=== PATIENT | male | born 1945 | race Caucasian/White ===

== ENCOUNTER 2018-07-29 12:41 | Inpatient (IN) | payer MEDICARE ==
[2018-07-29 12:41] VITALS: BMI 25.1
[2018-07-29 13:20] LABS: BASO # 0.1 K/uL (0.0-0.2); BASO % 1.1 % (0.0-2.0); EOS # 0.1 K/uL (0.0-0.7); EOS % 1.2 % (0.0-4.0); HEMOGLOBIN 15.7 g/dL (12.0-18.0); LYMPH # 1.7 K/uL (1.0-4.3); LYMPH % 27.5 % (20.0-40.0); MEAN CELL VOLUME 91.9 fL (80.0-94.0); MEAN CORPUSCULAR HEMOGLOBIN 31.1 pg (27.0-31.0); MEAN CORPUSCULAR HGB CONC 33.9 g/dL (33.0-37.0); MONO # 0.5 K/uL (0.0-0.8); MONO % 8.5 % (0.0-10.0); NEUT # 3.8 K/uL (1.8-7.0); NEUT % 61.7 % (50.0-75.0); RBC 5.05 Mil/uL (4.40-5.90); RED CELL DISTRIBUTION WIDTH 12.8 % (11.5-14.5); WHITE BLOOD COUNT 6.2 K/uL (4.8-10.8)
[2018-07-29] MEDS ORDERED: Metoprolol 1 mg/ml Inj IVP ONE ×2 (13:27→13:52)
[2018-07-29] MEDS ORDERED: Aspirin 325 mg EC Tablets PO STA (13:28)
[2018-07-29 13:29] LABS: INR 1.1; PROTHROMBIN TIME 11.7 SECONDS (9.7-12.2)
[2018-07-29 13:31] LABS: ALB/GLOB RATIO 1.4 (1.0-2.1); ALBUMIN 4.6 g/dL (3.5-5.0); ALT/SGPT 27 U/L (21-72); AST/SGOT 44 U/L (17-59); BLOOD UREA NITROGEN 17 mg/dL (9-20); CALCIUM 9.8 mg/dl (8.6-10.4); GFR NON-AFRICAN AMERICAN > 60
[2018-07-29] MEDS ORDERED: Metoprolol 1 mg/ml Inj ONE ×2 (13:32→14:22)
--- NOTE | 2018-07-29 13:33 | C.PDOC ---
History Of Present Illness Patient is a 73yo [place]ien M with history of HTN, HLD, afib was sent in by outpatient credit verification clerk, Dr. Gamboa covering for his regular credit verification clerk, Dr. rIwin. His regularly checks his pulse after their daily walk this morning and found him to be tachycardic. He switched from Losartan to Benicar (olmesartan) about a month ago due to the recall. He was trialed on Xarelto, but switched to Eliquis 5 daily due to cost. He takes half doses of his Sotalol (80 -> 40) and has runs of tachycardia which are known to Dr. Irwin. he has no other complaints. Denies chest pain, shortness of breath, swelling, headache, numbness, tingling, fever, chills. Time Seen by Provider: 07/29/18 13:06 Chief Complaint (Nursing): Palpitations History Per: Patient, Family History/Exam Limitations: no limitations Onset/Duration Of Symptoms: Hrs Current Symptoms Are (Timing): Still Present Severity: Mild Pain Scale Rating Of: 0 Past Medical History Reviewed: Historical Data, Nursing Documentation, Vital Signs Vital Signs: Last Vital Signs Temp 98.0 F 07/29/18 12:50 Pulse 139 H 07/29/18 12:50 Resp 18 07/29/18 12:50 BP 187/136 H 07/29/18 12:50 Pulse Ox 100 07/29/18 12:50 - Medical History PMH: Anxiety, Arthritis, Atrial Fibrillation, Cardia Arrhythmia, HTN, Hypercholesterolemia Denies: Chronic Kidney Disease Surgical History: Appendectomy, Cholecystectomy - [facility] Procedures ENDO RECTUM POLYPECTOMY (01/10/14) ENDOSC POLYPECTOMY OF LG INTEST (01/10/14) ESOPHAGOGASTRODUODENOSCOPY [EGD] W/CLOSED BIOPSY (01/10/14) INTRAOPER CHOLANGIOGRAM (02/28/14) LAPAROSCOPIC CHOLECYSTECTOMY (02/28/14) VACCINATION NEC (01/10/14) Family History: States: Unknown Family Hx - Social History Hx Tobacco Use: No Hx Alcohol Use: No Hx Substance Use: No - Immunization History Hx Tetanus Toxoid Vaccination: No Hx Influenza Vaccination: Yes Hx Pneumococcal Vaccination: Yes Review Of Systems Constitutional: Negative for: Fever, Chills, Sweats, Weakness, Malaise Cardiovascular: Positive for: Palpitations. Negative for: Chest Pain, Edema, Light Headedness Respiratory: Negative for: Cough, Shortness of Breath, Sputum, Wheezing Gastrointestinal: Negative for: Nausea, Vomiting, Abdominal Pain, Diarrhea, Constipation Musculoskeletal: Negative for: Arm Pain, Back Pain Neurological: Negative for: Weakness, Numbness, Confusion, Altered Mental Status, Headache, Dizziness Physical Exam - Physical Exam Appears: Well, No Acute Distress Skin: Normal Color (no bruises, bleeds), Warm, Dry Head: Atraumatic, Normacephalic Eye(s): bilateral: Normal Inspection, PERRL, EOMI (normal accommodation) Throat: Normal, No Erythema, No Exudate Cardiovascular: Rhythm Irregular, No Murmur Respiratory: Normal Breath Sounds, No Decreased Breath Sounds, No Accessory Muscle Use, No Rales, No Rhonchi, No Wheezing Gastrointestinal/Abdominal: Bowel Sounds, Soft, No Tenderness, No Distention, No Guarding Back: Normal Inspection, No CVA Tenderness Extremity: Normal ROM, No Pedal Edema, Capillary Refill (<2 sec), No Swelling Pulses: Left Radial: Normal, Right Radial: Normal, Left Dorsalis Pedis: Normal, Right Dorsalis Pedis: Normal Neurological/Psych: Oriented x3, Normal Speech, Normal Motor, Normal Sensation Gait: Steady ED Course And Treatment - Laboratory Results Result Diagrams: 07/29/18 13:16 07/29/18 13:16 ECG: Viewed By Me ECG Rhythm: Atrial Flutter ECG Interpretation: Abnormal Interpretation Of ECG: Aflutter with 2:1 AV conduction Rate From EC O2 Sat by Pulse Oximetry: 100 Medical Decision Making Medical Decision Making: patient is under-dosed on his beta blockers - EKG - labs - UA - PO ASA 325 - IVP Lopressor 5 - IVP Lopressor 5 after re-eval [address] Gamboa - ICU eval - heparin drip - Cardizem drip @ 5 - admit under Dr. Soto - hold Sotalol, Bystolic, Eliquis - IVP Lasix 20 - EP Dobesh [address] Chandra will accept to ICU Disposition Discussed With : Rick Gamboa Comment: IVP Lasix 20. started on heparin and cardizem drips. ICU called for eval Doctor Will See Patient In The: Hospital - Disposition Disposition: HOSPITALIZED Disposition Time: 14:34 Condition: GOOD Forms: [facility] ([place]) - Clinical Impression Clinical Impression: Palpitations, Atrial arrhythmia - PA / RN PRIOR AUTHORIZATION / Resident Statement MD/DO has reviewed & agrees with the documentation as recorded. MD/DO has examined the patient and agrees with the treatment plan.
--- NOTE | 2018-07-29 13:35 | RAD ---
Date of service: 07/29/2018 PROCEDURE: CHEST RADIOGRAPH, 1 VIEW HISTORY: SOB COMPARISON: 05/13/2015. FINDINGS: LUNGS: The lungs are well inflated and clear. PLEURA: No pneumothorax or pleural effusion. CARDIOVASCULAR: There is mild cardiomegaly. There are aortic atherosclerotic calcifications present. OSSEOUS STRUCTURES: Within normal limits for the patient's age. VISUALIZED UPPER ABDOMEN: Normal. OTHER FINDINGS: None. IMPRESSION: No active pulmonary disease.
[2018-07-29 13:49] LABS: B-TYPE NATRIURETIC PEPTIDE 2350 pg/mL (0-900)
[2018-07-29] MEDS ORDERED: Heparin25000 units/250ml 1/2NS 25,000 UNITS/250 ML BAG IV ONE ×2 (14:23→15:13)
[2018-07-29 14:56] LABS: SQUAMOUS EPITHIAL 1 /hpf (0-5); URINE BILIRUBIN NEGATIVE (NEGATIVE); URINE BLOOD 1+ (NEGATIVE); URINE CLARITY Clear (Clear); URINE COLOR Yellow (YELLOW); URINE GLUCOSE (UA) NORMAL (Normal); URINE LEUKOCYTE ESTERASE NEG Leu/uL (Negative); URINE PROTEIN NEGATIVE (NEGATIVE); URINE UROBILINOGEN NORMAL mg/dL (0.2-1.0)
--- NOTE | 2018-07-29 15:14 | CP.PCM.CON ---
<MeggregKirill - Last Filed: 07/29/18 15:08> History of Present Illness - History of Present Illness History of Present Illness: PGY-1 Critical Care Consult Note for Dr. Chandra Patient is a 73 year old male with PMHx atrial fibrillation who presents in rapid Afib noticed when patient's checked his pulse manually at home. Patient has known history of A fib with RVR and so is aware to monitor his heart rate. Patient was exercising this morning which he often does and asked his to help check is radial pulse and she noticed it to be "fluttering" and rapid. Of note, patient is the brother of on-staff biologics specialist, Dr. Irwin. Patient called Dr. Irwin who is currently in the [facility] and Dr. Irwin had patient go into his office to have EKG done and requested EKG be evaluated by Dr. Gamboa, and Dr. Gamboa requested patient go to ED for ICU evaluation. Patient recently changed medications from Xarelto to Eliquis. Patient denies palpitations, chest pain, dizziness, dyspnea, headache, vision changes, focal weakness, numbness, tingling. Review of Systems - Constitutional Constitutional: absent: Chills, Fever - EENT Eyes: absent: Blurred Vision, Change in Vision Nose/Mouth/Throat: absent: Nasal Congestion, Nasal Discharge - Cardiovascular Cardiovascular: absent: Chest Pain, Dyspnea, Edema, Lightheadedness, Palpitations - Respiratory Respiratory: absent: Dyspnea, Wheezing - Gastrointestinal Gastrointestinal: absent: Abdominal Pain, Diarrhea, Nausea, Vomiting - Musculoskeletal Musculoskeletal: absent: Back Pain, Numbness, Tingling - Neurological Neurological: absent: Dizziness, Focal Weakness, Loss of Vision, Syncope, Weakness - Psychiatric Psychiatric: absent: Anxiety, Depression Past Patient History - Infectious Disease Hx of Infectious Diseases: None - Past Medical History & Family History Past Medical History?: Yes - Past Social History Smoking Status: Former Smoker - CARDIAC Hx Atrial Fibrillation: Yes Hx Cardia Arrhythmia: Yes Hx Hypercholesterolemia: Yes Hx Hypertension: Yes - PULMONARY Hx Respiratory Disorders: No - NEUROLOGICAL Hx Neurological Disorder: No - HEENT Hx HEENT Problems: No Other/Comment: seasonal allergies - RENAL Hx Chronic Kidney Disease: No - ENDOCRINE/METABOLIC Hx Endocrine Disorders: Yes Other/Comment: HX of recurrent hyponatremia - HEMATOLOGICAL/ONCOLOGICAL Hx Blood Disorders: No - INTEGUMENTARY Hx Dermatological Problems: No - MUSCULOSKELETAL/RHEUMATOLOGICAL Hx Arthritis: Yes - GASTROINTESTINAL Hx Gastrointestinal Disorders: Yes Hx Gastroesophageal Reflux: Yes Other/Comment: cholelithiasis - GENITOURINARY/GYNECOLOGICAL Hx Genitourinary Disorders: No - PSYCHIATRIC Hx Anxiety: Yes Hx Substance Use: No - SURGICAL HISTORY Hx Appendectomy: Yes Hx Cholecystectomy: Yes - ANESTHESIA Hx Anesthesia: Yes Hx Anesthesia Reactions: No Hx Malignant Hyperthermia: No Meds Allergies/Adverse Reactions: Allergies Allergy/AdvReac Type Severity Reaction Status Date / Time amlodipine Allergy Verified 07/29/18 12:52 - Medications Medications: Current Medications Diltiazem HCl 125 mg/ Sodium (Chloride) 125 mls @ 5 mls/hr IV .Q24H KASIE; Protocol Physical Exam - Constitutional Appears: Non-toxic, No Acute Distress - Head Exam Head Exam: ATRAUMATIC, NORMOCEPHALIC - Eye Exam Eye Exam: EOMI - ENT Exam ENT Exam: Mucous Membranes Moist - Respiratory Exam Respiratory Exam: Clear to Auscultation Bilateral, NORMAL BREATHING PATTERN. absent: Rhonchi, Wheezes - Cardiovascular Exam Cardiovascular Exam: REGULAR RHYTHM, +S1, +S2 - GI/Abdominal Exam GI & Abdominal Exam: Normal Bowel Sounds, Soft. absent: Tenderness - Extremities Exam Extremities exam: Positive for: normal inspection. Negative for: pedal edema, tenderness - Neurological Exam Neurological exam: Alert, CN II-XII Intact, Oriented x3 - Psychiatric Exam Psychiatric exam: Normal Affect, Normal Mood - Skin Skin Exam: Dry, Intact Results - Vital Signs Recent Vital Signs: Last Vital Signs Temp 98.0 F 07/29/18 12:50 Pulse 70 07/29/18 14:51 Resp 14 07/29/18 14:51 BP 166/106 H 07/29/18 14:56 Pulse Ox 100 07/29/18 14:52 - Labs Result Diagrams: 07/29/18 13:16 07/29/18 13:16 Labs: Laboratory Results - last 24 hr 07/29/18 07/29/18 07/29/18 13:16 13:16 13:16 WBC 6.2 RBC 5.05 Hgb 15.7 D Hct 46.4 MCV 91.9 MCH 31.1 H MCHC 33.9 RDW 12.8 Plt Count 293 D MPV 7.0 L Neut % (Auto) 61.7 Lymph % (Auto) 27.5 Sullivan % (Auto) 8.5 Eos % (Auto) 1.2 Baso % (Auto) 1.1 Neut # (Auto) 3.8 Lymph # (Auto) 1.7 Sullivan # (Auto) 0.5 Eos # (Auto) 0.1 Baso # (Auto) 0.1 PT 11.7 INR 1.1 APTT 42.0 H Sodium 133 Potassium 5.1 Chloride 97 L Carbon Dioxide 27 Anion Gap 14 BUN 17 Creatinine 1.0 Est GFR ( Amer) > 60 Est GFR (Non-Af Amer) > 60 Random Glucose 119 H Calcium 9.8 Total Bilirubin 0.7 AST 44 ALT 27 Alkaline Phosphatase 92 Troponin I < 0.0120 NT-Pro-B Natriuret Pep 2350 H Total Protein 8.1 Albumin 4.6 Globulin 3.4 Albumin/Globulin Ratio 1.4 Urine Color Urine Clarity Urine pH Ur Specific [place] Urine Protein Urine Glucose (UA) Urine Ketones Urine Blood Urine Nitrate Urine Bilirubin Urine Urobilinogen Ur Leukocyte Esterase Urine WBC (Auto) Urine RBC (Auto) Ur Squamous Epith Cells 07/29/18 14:46 WBC RBC Hgb Hct MCV MCH MCHC RDW Plt Count MPV Neut % (Auto) Lymph % (Auto) Sullivan % (Auto) Eos % (Auto) Baso % (Auto) Neut # (Auto) Lymph # (Auto) Sullivan # (Auto) Eos # (Auto) Baso # (Auto) PT INR APTT Sodium Potassium Chloride Carbon Dioxide Anion Gap BUN Creatinine Est GFR ( Amer) Est GFR (Non-Af Amer) Random Glucose Calcium Total Bilirubin AST ALT Alkaline Phosphatase Troponin I NT-Pro-B Natriuret Pep Total Protein Albumin Globulin Albumin/Globulin Ratio Urine Color Yellow Urine Clarity Clear Urine pH 6.0 Ur Specific [place] 1.009 Urine Protein Negative Urine Glucose (UA) Normal Urine Ketones Negative Urine Blood 1+ H Urine Nitrate Negative Urine Bilirubin Negative Urine Urobilinogen Normal Ur Leukocyte Esterase Neg Urine WBC (Auto) 1 Urine RBC (Auto) 11 H Ur Squamous Epith Cells 1 Assessment & Plan - Assessment and Plan (Free Text) Assessment: 73 year old male with PMHx A Fib, HTN, HLD who presents in A Fib with rapid ventricular response upon noting his pulse to be elevated following a morning workout. Patient placed on cardizem drip in ED admitted for inpatient ICU monitoring. Cardio A Fib with RVR -EKG - sinus tach HR 130s, a fib on cadiac monitor -ICU cardiac monitoring -Cardizem ggt started in ICU, titrate for rate control -Heparin ggt started in ICU -Patient without palpitations, dizziness, no symptoms of stroke/TIA HTN -c/w home meds Pulm -Saturating well on room air -Maintain spO2 above 92% Neuro -A and O x3 PPx -Heparin 5000 U SC Assessment and plan d/w Dr. Prateek De La Cruz, PGY-1 <Carlo Chandra S - Last Filed: 07/29/18 17:41> Meds - Medications Medications: Current Medications Diltiazem HCl 125 mg/ Sodium (Chloride) 125 mls @ 5 mls/hr IV .Q24H KASIE; Protocol Last Titration: 07/29/18 17:23 Dose: 0 mg/hr, 0 mls/hr Heparin Sodium/Sodium Chloride (Heparin 13365 Units/250ml 1/2 Normal Saline) 25,000 units in 250 mls @ 7.031 mls/hr IV .Q24H ONE; Protocol Stop: 07/30/18 15:12 Last Admin: 07/29/18 15:16 Dose: 10 units/kg/hr, 7.031 mls/hr Results - Vital Signs Recent Vital Signs: Last Vital Signs Temp 98.6 F 07/29/18 16:00 Pulse 67 07/29/18 17:00 Resp 12 07/29/18 17:00 BP 155/79 H 07/29/18 16:35 Pulse Ox 99 07/29/18 17:00 - Labs Result Diagrams: 07/29/18 13:16 07/29/18 13:16 Labs: Laboratory Results - last 24 hr 07/29/18 07/29/18 07/29/18 13:16 13:16 13:16 WBC 6.2 RBC 5.05 Hgb 15.7 D Hct 46.4 MCV 91.9 MCH 31.1 H MCHC 33.9 RDW 12.8 Plt Count 293 D MPV 7.0 L Neut % (Auto) 61.7 Lymph % (Auto) 27.5 Sullivan % (Auto) 8.5 Eos % (Auto) 1.2 Baso % (Auto) 1.1 Neut # (Auto) 3.8 Lymph # (Auto) 1.7 Sullivan # (Auto) 0.5 Eos # (Auto) 0.1 Baso # (Auto) 0.1 PT 11.7 INR 1.1 APTT 42.0 H Sodium 133 Potassium 5.1 Chloride 97 L Carbon Dioxide 27 Anion Gap 14 BUN 17 Creatinine 1.0 Est GFR ( Amer) > 60 Est GFR (Non-Af Amer) > 60 Random Glucose 119 H Calcium 9.8 Total Bilirubin 0.7 AST 44 ALT 27 Alkaline Phosphatase 92 Troponin I < 0.0120 NT-Pro-B Natriuret Pep 2350 H Total Protein 8.1 Albumin 4.6 Globulin 3.4 Albumin/Globulin Ratio 1.4 Urine Color Urine Clarity Urine pH Ur Specific [place] Urine Protein Urine Glucose (UA) Urine Ketones Urine Blood Urine Nitrate Urine Bilirubin Urine Urobilinogen Ur Leukocyte Esterase Urine WBC (Auto) Urine RBC (Auto) Ur Squamous Epith Cells 07/29/18 14:46 WBC RBC Hgb Hct MCV MCH MCHC RDW Plt Count MPV Neut % (Auto) Lymph % (Auto) Sullivan % (Auto) Eos % (Auto) Baso % (Auto) Neut # (Auto) Lymph # (Auto) Sullivan # (Auto) Eos # (Auto) Baso # (Auto) PT INR APTT Sodium Potassium Chloride Carbon Dioxide Anion Gap BUN Creatinine Est GFR ( Amer) Est GFR (Non-Af Amer) Random Glucose Calcium Total Bilirubin AST ALT Alkaline Phosphatase Troponin I NT-Pro-B Natriuret Pep Total Protein Albumin Globulin Albumin/Globulin Ratio Urine Color Yellow Urine Clarity Clear Urine pH 6.0 Ur Specific [place] 1.009 Urine Protein Negative Urine Glucose (UA) Normal Urine Ketones Negative Urine Blood 1+ H Urine Nitrate Negative Urine Bilirubin Negative Urine Urobilinogen Normal Ur Leukocyte Esterase Neg Urine WBC (Auto) 1 Urine RBC (Auto) 11 H Ur Squamous Epith Cells 1 Attending/Attestation - Attestation I have personally seen and examined this patient.: Yes I have fully participated in the care of the patient.: Yes I have reviewed all pertinent clinical information: Yes Notes (Text): 07/29/18 17:36 Patient seen and examined 73-year-old male presented to emergency room A. fib with rapid ventricular response and was started on Cardizem and heparin drip Denies chest pain, denies shortness of breath, denies fever chills ICU observation Serial enzymes Cardiology evaluation Echocardiogram
--- NOTE | 2018-07-30 00:13 | CP.PCM.CON ---
History of Present Illness - History of Present Illness History of Present Illness: CC: rapid a Fib Patient is a 73 year old male with PMHx atrial fibrillation who presents in rapid Afib noticed when patient's checked his pulse manually at home. Patient has known history of A fib with RVR and so is aware to monitor his heart rate. Patient was exercising this morning which he often does and asked his to help check is radial pulse and she noticed it to be "fluttering" and rapid. Of note, patient is the brother of on-staff rn acute dialysis, Dr. Irwin. Patient called Dr. Irwin who is currently in the [facility] and Dr. Irwin had patient go into his office to have EKG done and requested EKG be evaluated by Dr. Gamboa, and Dr. Gamboa requested patient go to ED for ICU evaluation. Patient recently changed medications from Xarelto to Eliquis. Patient denies palpitations, chest pain, dizziness, dyspnea, headache, vision changes, focal weakness, numbness, tingling. Review of Systems - Constitutional Constitutional: absent: Chills, Fever - EENT Eyes: absent: Blurred Vision, Change in Vision Nose/Mouth/Throat: absent: Nasal Congestion, Nasal Discharge - Cardiovascular Cardiovascular: absent: Chest Pain, Dyspnea, Edema, Lightheadedness, Palpitations - Respiratory Respiratory: absent: Dyspnea, Wheezing - Gastrointestinal Gastrointestinal: absent: Abdominal Pain, Diarrhea, Nausea, Vomiting - Musculoskeletal Musculoskeletal: absent: Back Pain, Numbness, Tingling - Neurological Neurological: absent: Dizziness, Focal Weakness, Loss of Vision, Syncope, Weakness - Psychiatric Psychiatric: absent: Anxiety, Depression Past Patient History - Infectious Disease Hx of Infectious Diseases: None - Past Medical History & Family History Past Medical History?: Yes - Past Social History Smoking Status: Former Smoker - CARDIAC Hx Atrial Fibrillation: Yes Hx Cardia Arrhythmia: Yes Hx Hypercholesterolemia: Yes Hx Hypertension: Yes - PULMONARY Hx Respiratory Disorders: No - NEUROLOGICAL Hx Neurological Disorder: No - HEENT Hx HEENT Problems: No Other/Comment: seasonal allergies - RENAL Hx Chronic Kidney Disease: No - ENDOCRINE/METABOLIC Hx Endocrine Disorders: Yes Other/Comment: HX of recurrent hyponatremia - HEMATOLOGICAL/ONCOLOGICAL Hx Blood Disorders: No - INTEGUMENTARY Hx Dermatological Problems: No - MUSCULOSKELETAL/RHEUMATOLOGICAL Hx Arthritis: Yes - GASTROINTESTINAL Hx Gastrointestinal Disorders: Yes Hx Gastroesophageal Reflux: Yes Other/Comment: cholelithiasis - GENITOURINARY/GYNECOLOGICAL Hx Genitourinary Disorders: No - PSYCHIATRIC Hx Anxiety: Yes Hx Substance Use: No - SURGICAL HISTORY Hx Appendectomy: Yes Hx Cholecystectomy: Yes - ANESTHESIA Hx Anesthesia: Yes Hx Anesthesia Reactions: No Hx Malignant Hyperthermia: No Meds Allergies/Adverse Reactions: Allergies Allergy/AdvReac Type Severity Reaction Status Date / Time amlodipine Allergy Verified 07/29/18 12:52 - Medications Medications: Current Medications Diltiazem HCl 125 mg/ Sodium (Chloride) 125 mls @ 5 mls/hr IV .Q24H KASIE; Protocol Physical Exam - Constitutional Appears: Non-toxic, No Acute Distress - Head Exam Head Exam: ATRAUMATIC, NORMOCEPHALIC - Eye Exam Eye Exam: EOMI - ENT Exam ENT Exam: Mucous Membranes Moist - Respiratory Exam Respiratory Exam: Clear to Auscultation Bilateral, NORMAL BREATHING PATTERN. absent: Rhonchi, Wheezes - Cardiovascular Exam Cardiovascular Exam: REGULAR RHYTHM, +S1, +S2 - GI/Abdominal Exam GI & Abdominal Exam: Normal Bowel Sounds, Soft. absent: Tenderness - Extremities Exam Extremities exam: Positive for: normal inspection. Negative for: pedal edema, tenderness - Neurological Exam Neurological exam: Alert, CN II-XII Intact, Oriented x3 - Psychiatric Exam Psychiatric exam: Normal Affect, Normal Mood - Skin Skin Exam: Dry, Intact Results - Vital Signs Recent Vital Signs: Last Vital Signs Temp 98.0 F 07/29/18 12:50 Pulse 70 07/29/18 14:51 Resp 14 07/29/18 14:51 BP 166/106 H 07/29/18 14:56 Pulse Ox 100 07/29/18 14:52 - Labs Result Diagrams: 07/29/18 13:16 07/29/18 13:16 Labs: Laboratory Results - last 24 hr 07/29/18 07/29/18 07/29/18 13:16 13:16 13:16 WBC 6.2 RBC 5.05 Hgb 15.7 D Hct 46.4 MCV 91.9 MCH 31.1 H MCHC 33.9 RDW 12.8 Plt Count 293 D MPV 7.0 L Neut % (Auto) 61.7 Lymph % (Auto) 27.5 [place] % (Auto) 8.5 Eos % (Auto) 1.2 Baso % (Auto) 1.1 Neut # (Auto) 3.8 Lymph # (Auto) 1.7 [place] # (Auto) 0.5 Eos # (Auto) 0.1 Baso # (Auto) 0.1 PT 11.7 INR 1.1 APTT 42.0 H Sodium 133 Potassium 5.1 Chloride 97 L Carbon Dioxide 27 Anion Gap 14 BUN 17 Creatinine 1.0 Est GFR ( Amer) > 60 Est GFR (Non-Af Amer) > 60 Random Glucose 119 H Calcium 9.8 Total Bilirubin 0.7 AST 44 ALT 27 Alkaline Phosphatase 92 Troponin I < 0.0120 NT-Pro-B Natriuret Pep 2350 H Total Protein 8.1 Albumin 4.6 Globulin 3.4 Albumin/Globulin Ratio 1.4 Urine Color Urine Clarity Urine pH Ur Specific [place] Urine Protein Urine Glucose (UA) Urine Ketones Urine Blood Urine Nitrate Urine Bilirubin Urine Urobilinogen Ur Leukocyte Esterase Urine WBC (Auto) Urine RBC (Auto) Ur Squamous Epith Cells 07/29/18 14:46 WBC RBC Hgb Hct MCV MCH MCHC RDW Plt Count MPV Neut % (Auto) Lymph % (Auto) [place] % (Auto) Eos % (Auto) Baso % (Auto) Neut # (Auto) Lymph # (Auto) [place] # (Auto) Eos # (Auto) Baso # (Auto) PT INR APTT Sodium Potassium Chloride Carbon Dioxide Anion Gap BUN Creatinine Est GFR ( Amer) Est GFR (Non-Af Amer) Random Glucose Calcium Total Bilirubin AST ALT Alkaline Phosphatase Troponin I NT-Pro-B Natriuret Pep Total Protein Albumin Globulin Albumin/Globulin Ratio Urine Color Yellow Urine Clarity Clear Urine pH 6.0 Ur Specific [place] 1.009 Urine Protein Negative Urine Glucose (UA) Normal Urine Ketones Negative Urine Blood 1+ H Urine Nitrate Negative Urine Bilirubin Negative Urine Urobilinogen Normal Ur Leukocyte Esterase Neg Urine WBC (Auto) 1 Urine RBC (Auto) 11 H Ur Squamous Epith Cells 1 Assessment & Plan - Assessment and Plan (Free Text) Assessment: 73 year old male with PMHx A Fib, HTN, HLD who presents in A Fib with rapid ventricular response upon noting his pulse to be elevated following a morning workout. Patient placed on cardizem drip in ED admitted for inpatient ICU monitoring. Cardio A Fib with RVR -EKG - sinus tach HR 130s, a fib on cadiac monitor -ICU cardiac monitoring -Cardizem ggt started in ICU, titrate for rate control -Lovenox for A Fib -Patient without palpitations, dizziness, no symptoms of stroke/TIA HTN -c/w home meds Pulm -Saturating well on room air -Maintain spO2 above 92% Neuro -A and O x3 Past Patient History - Infectious Disease Hx of Infectious Diseases: None - Past Medical History & Family History Past Medical History?: Yes - Past Social History Smoking Status: Never Smoked - CARDIAC Hx Atrial Fibrillation: Yes Hx Cardia Arrhythmia: Yes Hx Hypercholesterolemia: Yes Hx Hypertension: Yes - PULMONARY Hx Respiratory Disorders: No - NEUROLOGICAL Hx Neurological Disorder: No - HEENT Hx HEENT Problems: No Other/Comment: seasonal allergies - RENAL Hx Chronic Kidney Disease: No - ENDOCRINE/METABOLIC Hx Endocrine Disorders: Yes Other/Comment: HX of recurrent hyponatremia - HEMATOLOGICAL/ONCOLOGICAL Hx Blood Disorders: No - INTEGUMENTARY Hx Dermatological Problems: No - MUSCULOSKELETAL/RHEUMATOLOGICAL Hx Falls: No - GASTROINTESTINAL Hx Gastrointestinal Disorders: Yes Hx Gastroesophageal Reflux: Yes Other/Comment: cholelithiasis - GENITOURINARY/GYNECOLOGICAL Hx Genitourinary Disorders: No - PSYCHIATRIC Hx Substance Use: No - SURGICAL HISTORY Hx Appendectomy: Yes Hx Cholecystectomy: Yes - ANESTHESIA Hx Anesthesia: Yes Hx Anesthesia Reactions: No Hx Malignant Hyperthermia: No Has any member of the family had a problem w/ anesthesia?: No Meds Allergies/Adverse Reactions: Allergies Allergy/AdvReac Type Severity Reaction Status Date / Time amlodipine Allergy Verified 07/29/18 12:52 - Medications Medications: Current Medications Enoxaparin Sodium (Lovenox) 60 mg SC Q12 KASIE Diltiazem HCl 125 mg/ Sodium (Chloride) 125 mls @ 5 mls/hr IV .Q24H KASIE; Protocol Last Titration: 07/29/18 17:23 Dose: 0 mg/hr, 0 mls/hr Results - Vital Signs Recent Vital Signs: Last Vital Signs Temp 98.4 F 07/29/18 20:00 Pulse 63 07/29/18 21:35 Resp 14 07/29/18 21:35 BP 137/78 07/29/18 20:35 Pulse Ox 98 07/29/18 21:35 - Labs Result Diagrams: 07/29/18 13:16 07/29/18 13:16 Labs: Laboratory Results - last 24 hr 07/29/18 07/29/18 07/29/18 13:16 13:16 13:16 WBC 6.2 RBC 5.05 Hgb 15.7 D Hct 46.4 MCV 91.9 MCH 31.1 H MCHC 33.9 RDW 12.8 Plt Count 293 D MPV 7.0 L Neut % (Auto) 61.7 Lymph % (Auto) 27.5 [place] % (Auto) 8.5 Eos % (Auto) 1.2 Baso % (Auto) 1.1 Neut # (Auto) 3.8 Lymph # (Auto) 1.7 [place] # (Auto) 0.5 Eos # (Auto) 0.1 Baso # (Auto) 0.1 PT 11.7 INR 1.1 APTT 42.0 H Sodium 133 Potassium 5.1 Chloride 97 L Carbon Dioxide 27 Anion Gap 14 BUN 17 Creatinine 1.0 Est GFR ( Amer) > 60 Est GFR (Non-Af Amer) > 60 Random Glucose 119 H Calcium 9.8 Total Bilirubin 0.7 AST 44 ALT 27 Alkaline Phosphatase 92 Troponin I < 0.0120 NT-Pro-B Natriuret Pep 2350 H Total Protein 8.1 Albumin 4.6 Globulin 3.4 Albumin/Globulin Ratio 1.4 Urine Color Urine Clarity Urine pH Ur Specific [place] Urine Protein Urine Glucose (UA) Urine Ketones Urine Blood Urine Nitrate Urine Bilirubin Urine Urobilinogen Ur Leukocyte Esterase Urine WBC (Auto) Urine RBC (Auto) Ur Squamous Epith Cells 07/29/18 14:46 WBC RBC Hgb Hct MCV MCH MCHC RDW Plt Count MPV Neut % (Auto) Lymph % (Auto) [place] % (Auto) Eos % (Auto) Baso % (Auto) Neut # (Auto) Lymph # (Auto) [place] # (Auto) Eos # (Auto) Baso # (Auto) PT INR APTT Sodium Potassium Chloride Carbon Dioxide Anion Gap BUN Creatinine Est GFR ( Amer) Est GFR (Non-Af Amer) Random Glucose Calcium Total Bilirubin AST ALT Alkaline Phosphatase Troponin I NT-Pro-B Natriuret Pep Total Protein Albumin Globulin Albumin/Globulin Ratio Urine Color Yellow Urine Clarity Clear Urine pH 6.0 Ur Specific [place] 1.009 Urine Protein Negative Urine Glucose (UA) Normal Urine Ketones Negative Urine Blood 1+ H Urine Nitrate Negative Urine Bilirubin Negative Urine Urobilinogen Normal Ur Leukocyte Esterase Neg Urine WBC (Auto) 1 Urine RBC (Auto) 11 H Ur Squamous Epith Cells 1
[2018-07-30 06:01] LABS: BASO # 0.1 K/uL (0.0-0.2); BASO % 1.4 % (0.0-2.0); EOS # 0.2 K/uL (0.0-0.7); EOS % 2.7 % (0.0-4.0); HEMOGLOBIN 14.8 g/dL (12.0-18.0); LYMPH % 30.8 % (20.0-40.0); MEAN CELL VOLUME 91.5 fL (80.0-94.0); MEAN CORPUSCULAR HEMOGLOBIN 30.9 pg (27.0-31.0); MEAN CORPUSCULAR HGB CONC 33.8 g/dL (33.0-37.0); MEAN PLATELET VOLUME 7.2 fL (7.2-11.7); MONO # 0.7 K/uL (0.0-0.8); MONO % 10.5 % (0.0-10.0); NEUT # 3.5 K/uL (1.8-7.0); NEUT % 54.6 % (50.0-75.0); RBC 4.79 Mil/uL (4.40-5.90); WHITE BLOOD COUNT 6.4 K/uL (4.8-10.8)
[2018-07-30 06:19] LABS: ALB/GLOB RATIO 1.4 (1.0-2.1); ALBUMIN 4.2 g/dL (3.5-5.0); ALT/SGPT 26 U/L (21-72); AST/SGOT 41 U/L (17-59); BLOOD UREA NITROGEN 13 mg/dL (9-20); CALCIUM 8.9 mg/dl (8.6-10.4); GFR NON-AFRICAN AMERICAN > 60
[2018-07-30] MEDS: Enoxaparin 60 mg Syringe SC SCH ×2 (09:22→21:50)
[2018-07-30] MEDS: Fluticasone Nasal 50 mcg/Spray NAS SCH (10:29)
--- NOTE | 2018-07-30 10:51 | CP.CCUPN ---
<Kirill De La Cruz - Last Filed: 07/30/18 10:46> CCU Subjective - Physician Review Subjective (Free Text): 07/30/18 10:51 PGY-1 Critical Care Progress Note for Dr. Chandra Patient seen and examined at bedside. No acute events overnight. HR improved overnight with cardizem drip - drip turned off and pt with HR in 60s on the monitor. Denies chest pain, palpitations, headache, dizziness, focal weakness, numbness, tingling, vision changes, shortness of breath. CCU Objective - Vital Signs / Intake & Output Vital Signs (Last 4 hours): Vital Signs Temp Pulse Resp BP Pulse Ox 07/30/18 10:00 66 14 99 07/30/18 09:35 59 L 11 L 161/85 H 99 07/30/18 09:00 59 L 13 99 07/30/18 08:35 67 10 L 158/84 H 99 07/30/18 08:00 99.1 F 73 14 100 07/30/18 07:35 71 12 164/80 H 100 07/30/18 07:00 63 17 100 Intake and Output (Last 8hrs): Intake & Output 07/29/18 07/30/18 07/30/18 22:59 06:59 14:59 Intake Total 581 0 450 Output Total 1300 600 400 Balance -719 -600 50 Weight 159 lb 6.307 oz Intake: IV 10 Intake, IV Amount 31 0 0 Left Wrist 10 0 Right Antecubital 21 0 0 Oral 540 450 Output: Urine 1300 600 400 Urine, Voided 1300 600 400 Emesis 0 0 0 Other: # Voids Urine, Voided 1 # Bowel Movements 0 0 0 - Physical Exam Head: Positive for: Atraumatic, Normocephalic Pupils: Positive for: PERRL Extroacular Muscles: Positive for: EOMI Mouth: Positive for: Moist Mucous Membranes Respiratory/Chest: Positive for: Clear to Auscultation. Negative for: Accessory Muscle Use, Wheezes, Rales Cardiovascular: Positive for: Regular Rate and Rhythm, Normal S1, S2 Abdomen: Negative for: Tenderness, Distention Neurological: Positive for: GCS=15, CN II-XII Intact Skin: Positive for: Dry, Normal Color Psychiatric: Positive for: Alert, Oriented x 3 - Medications Active Medications: Active Medications Generic Name Dose Route Start Last Admin Trade Name Freq PRN Reason Stop Dose Admin Enoxaparin Sodium 60 mg 07/30/18 10:00 07/30/18 09:22 Lovenox SC 60 mg Q12 KASIE Administration Fluticasone Propionate 1 spr 07/30/18 10:00 07/30/18 10:29 Flonase AMELIA Not Given DAILY KASIE Diltiazem HCl 125 mg/ Sodium 125 mls @ 5 mls/hr 07/29/18 14:45 07/29/18 17:23 Chloride IV 0 mg/hr .Q24H KASIE 0 mls/hr Titration Protocol 5 MG/HR Loratadine 10 mg 07/30/18 10:00 07/30/18 10:31 Claritin PO 10 mg DAILY KASIE Administration Losartan Potassium 100 mg 07/30/18 10:00 07/30/18 10:31 Cozaar PO 100 mg DAILY KASIE Administration Nebivolol 10 mg 07/30/18 10:00 07/30/18 10:30 Bystolic PO 10 mg DAILY KASIE Administration - Patient Studies Lab Studies: Lab Studies 07/30/18 07/30/18 07/29/18 Range/Units 05:56 05:56 14:46 WBC 6.4 (4.8-10.8) K/uL RBC 4.79 (4.40-5.90) Mil/uL Hgb 14.8 (12.0-18.0) g/dL Hct 43.8 (35.0-51.0) % MCV 91.5 (80.0-94.0) fL MCH 30.9 (27.0-31.0) pg MCHC 33.8 (33.0-37.0) g/dL RDW 13.0 (11.5-14.5) % Plt Count 269 (130-400) K/uL MPV 7.2 (7.2-11.7) fL Neut % (Auto) 54.6 (50.0-75.0) % Lymph % (Auto) 30.8 (20.0-40.0) % [place] % (Auto) 10.5 H (0.0-10.0) % Eos % (Auto) 2.7 (0.0-4.0) % Baso % (Auto) 1.4 (0.0-2.0) % Neut # (Auto) 3.5 (1.8-7.0) K/uL Lymph # (Auto) 2.0 (1.0-4.3) K/uL [place] # (Auto) 0.7 (0.0-0.8) K/uL Eos # (Auto) 0.2 (0.0-0.7) K/uL Baso # (Auto) 0.1 (0.0-0.2) K/uL PT (9.7-12.2) SECONDS INR APTT (21-34) SECONDS Sodium 134 (132-148) mmol/L Potassium 4.0 (3.6-5.2) mmol/L Chloride 100 (98-107) mmol/L Carbon Dioxide 25 (22-30) mmol/L Anion Gap 13 (10-20) BUN 13 (9-20) mg/dL Creatinine 0.8 (0.8-1.5) mg/dL Est GFR ( Amer) > 60 Est GFR (Non-Af Amer) > 60 Random Glucose 104 (75-110) mg/dL Calcium 8.9 (8.6-10.4) mg/dl Phosphorus 3.1 (2.5-4.5) mg/dL Magnesium 2.0 (1.6-2.3) mg/dL Total Bilirubin 1.0 (0.2-1.3) mg/dL AST 41 (17-59) U/L ALT 26 (21-72) U/L Alkaline Phosphatase 71 (38-126) U/L Troponin I (0.00-0.120) ng/mL NT-Pro-B Natriuret Pep (0-900) pg/mL Total Protein 7.3 (6.3-8.3) g/dL Albumin 4.2 (3.5-5.0) g/dL Globulin 3.1 (2.2-3.9) gm/dL Albumin/Globulin Ratio 1.4 (1.0-2.1) Urine Color Yellow (YELLOW) Urine Clarity Clear (Clear) Urine pH 6.0 (5.0-8.0) Ur Specific [place] 1.009 (1.003-1.030) Urine Protein Negative (NEGATIVE) mg/dL Urine Glucose (UA) Normal (Normal) mg/dL Urine Ketones Negative (NEGATIVE) mg/dL Urine Blood 1+ H (NEGATIVE) Urine Nitrate Negative (NEGATIVE) Urine Bilirubin Negative (NEGATIVE) Urine Urobilinogen Normal (0.2-1.0) mg/dL Ur Leukocyte Esterase Neg (Negative) Morena/uL Urine WBC (Auto) 1 (0-5) /hpf Urine RBC (Auto) 11 H (0-3) /hpf Ur Squamous Epith Cells 1 (0-5) /hpf 07/29/18 07/29/18 07/29/18 Range/Units 13:16 13:16 13:16 WBC 6.2 (4.8-10.8) K/uL RBC 5.05 (4.40-5.90) Mil/uL Hgb 15.7 D (12.0-18.0) g/dL Hct 46.4 (35.0-51.0) % MCV 91.9 (80.0-94.0) fL MCH 31.1 H (27.0-31.0) pg MCHC 33.9 (33.0-37.0) g/dL RDW 12.8 (11.5-14.5) % Plt Count 293 D (130-400) K/uL MPV 7.0 L (7.2-11.7) fL Neut % (Auto) 61.7 (50.0-75.0) % Lymph % (Auto) 27.5 (20.0-40.0) % [place] % (Auto) 8.5 (0.0-10.0) % Eos % (Auto) 1.2 (0.0-4.0) % Baso % (Auto) 1.1 (0.0-2.0) % Neut # (Auto) 3.8 (1.8-7.0) K/uL Lymph # (Auto) 1.7 (1.0-4.3) K/uL [place] # (Auto) 0.5 (0.0-0.8) K/uL Eos # (Auto) 0.1 (0.0-0.7) K/uL Baso # (Auto) 0.1 (0.0-0.2) K/uL PT 11.7 (9.7-12.2) SECONDS INR 1.1 APTT 42.0 H (21-34) SECONDS Sodium 133 (132-148) mmol/L Potassium 5.1 (3.6-5.2) mmol/L Chloride 97 L (98-107) mmol/L Carbon Dioxide 27 (22-30) mmol/L Anion Gap 14 (10-20) BUN 17 (9-20) mg/dL Creatinine 1.0 (0.8-1.5) mg/dL Est GFR ( Amer) > 60 Est GFR (Non-Af Amer) > 60 Random Glucose 119 H (75-110) mg/dL Calcium 9.8 (8.6-10.4) mg/dl Phosphorus (2.5-4.5) mg/dL Magnesium (1.6-2.3) mg/dL Total Bilirubin 0.7 (0.2-1.3) mg/dL AST 44 (17-59) U/L ALT 27 (21-72) U/L Alkaline Phosphatase 92 (38-126) U/L Troponin I < 0.0120 (0.00-0.120) ng/mL NT-Pro-B Natriuret Pep 2350 H (0-900) pg/mL Total Protein 8.1 (6.3-8.3) g/dL Albumin 4.6 (3.5-5.0) g/dL Globulin 3.4 (2.2-3.9) gm/dL Albumin/Globulin Ratio 1.4 (1.0-2.1) Urine Color (YELLOW) Urine Clarity (Clear) Urine pH (5.0-8.0) Ur Specific [place] (1.003-1.030) Urine Protein (NEGATIVE) mg/dL Urine Glucose (UA) (Normal) mg/dL Urine Ketones (NEGATIVE) mg/dL Urine Blood (NEGATIVE) Urine Nitrate (NEGATIVE) Urine Bilirubin (NEGATIVE) Urine Urobilinogen (0.2-1.0) mg/dL Ur Leukocyte Esterase (Negative) Morena/uL Urine WBC (Auto) (0-5) /hpf Urine RBC (Auto) (0-3) /hpf Ur Squamous Epith Cells (0-5) /hpf Laboratory Results - last 24 hr 07/29/18 07/29/18 07/29/18 13:16 13:16 13:16 WBC 6.2 RBC 5.05 Hgb 15.7 D Hct 46.4 MCV 91.9 MCH 31.1 H MCHC 33.9 RDW 12.8 Plt Count 293 D MPV 7.0 L Neut % (Auto) 61.7 Lymph % (Auto) 27.5 [place] % (Auto) 8.5 Eos % (Auto) 1.2 Baso % (Auto) 1.1 Neut # (Auto) 3.8 Lymph # (Auto) 1.7 [place] # (Auto) 0.5 Eos # (Auto) 0.1 Baso # (Auto) 0.1 PT 11.7 INR 1.1 APTT 42.0 H Sodium 133 Potassium 5.1 Chloride 97 L Carbon Dioxide 27 Anion Gap 14 BUN 17 Creatinine 1.0 Est GFR ( Amer) > 60 Est GFR (Non-Af Amer) > 60 Random Glucose 119 H Calcium 9.8 Phosphorus Magnesium Total Bilirubin 0.7 AST 44 ALT 27 Alkaline Phosphatase 92 Troponin I < 0.0120 NT-Pro-B Natriuret Pep 2350 H Total Protein 8.1 Albumin 4.6 Globulin 3.4 Albumin/Globulin Ratio 1.4 Urine Color Urine Clarity Urine pH Ur Specific [place] Urine Protein Urine Glucose (UA) Urine Ketones Urine Blood Urine Nitrate Urine Bilirubin Urine Urobilinogen Ur Leukocyte Esterase Urine WBC (Auto) Urine RBC (Auto) Ur Squamous Epith Cells 07/29/18 07/30/18 07/30/18 14:46 05:56 05:56 WBC 6.4 RBC 4.79 Hgb 14.8 Hct 43.8 MCV 91.5 MCH 30.9 MCHC 33.8 RDW 13.0 Plt Count 269 MPV 7.2 Neut % (Auto) 54.6 Lymph % (Auto) 30.8 [place] % (Auto) 10.5 H Eos % (Auto) 2.7 Baso % (Auto) 1.4 Neut # (Auto) 3.5 Lymph # (Auto) 2.0 [place] # (Auto) 0.7 Eos # (Auto) 0.2 Baso # (Auto) 0.1 PT INR APTT Sodium 134 Potassium 4.0 Chloride 100 Carbon Dioxide 25 Anion Gap 13 BUN 13 Creatinine 0.8 Est GFR ( Amer) > 60 Est GFR (Non-Af Amer) > 60 Random Glucose 104 Calcium 8.9 Phosphorus 3.1 Magnesium 2.0 Total Bilirubin 1.0 AST 41 ALT 26 Alkaline Phosphatase 71 Troponin I NT-Pro-B Natriuret Pep Total Protein 7.3 Albumin 4.2 Globulin 3.1 Albumin/Globulin Ratio 1.4 Urine Color Yellow Urine Clarity Clear Urine pH 6.0 Ur Specific [place] 1.009 Urine Protein Negative Urine Glucose (UA) Normal Urine Ketones Negative Urine Blood 1+ H Urine Nitrate Negative Urine Bilirubin Negative Urine Urobilinogen Normal Ur Leukocyte Esterase Neg Urine WBC (Auto) 1 Urine RBC (Auto) 11 H Ur Squamous Epith Cells 1 Radiology Impressions: Radiology Impressions Chest X-Ray 07/29/18 13:09 IMPRESSION: No active pulmonary disease. EKG/Cardiology Studies: Cardiology / EKG Studies 07/29/18 12:44 ELECTROCARDIOGRAM Stat Comment: Mode Of Transportation: BED Reason For Exam: SOB 07/29/18 13:09 ELECTROCARDIOGRAM Stat Comment: Mode Of Transportation: BED Reason For Exam: SOB Review of Systems - Review of Systems All systems: reviewed and no additional remarkable complaints except Review of Systems: Denies chest pain, palpitations, headache, dizziness, focal weakness, numbness, tingling, vision changes, shortness of breath Critical Care Progress Note - Nutrition Nutrition: Nutrition Category Date Time Status Heart Healthy Diet [DIET] Diets 07/29/18 Dinner Active Assessment/Plan - Assessment and Plan (Free Text) Assessment: 73 year old male with PMHx A Fib, HTN, HLD who presents in A Fib with rapid ve ntricular response upon noting his pulse to be elevated following a morning workout. Patient placed on cardizem drip in ED admitted for inpatient ICU monitoring. Cardio A Fib with RVR -EKG on admission - sinus tach HR 130s, a fib on cadiac monitor -ICU cardiac monitoring -Cardizem ggt - drip turned off -Heparin ggt discontinued --> Lovenox 60 mg SC Q12 -Patient without palpitations, dizziness, no symptoms of stroke/TIA -HR improved on monitor in 60s Meds -Lovenox 60 mg SC Q12 -Bystolic 10 mg PO daily HTN -c/w home meds --Bystolic 10 mg PO daily --Losartan 100 mg PO daily Pulm -Saturating well on room air -Maintain spO2 above 92% Neuro -A and O x3 PPx -Heparin 5000 U SC Assessment and plan d/w Dr. Prateek De La Cruz, PGY-1 <Carlo Chandra - Last Filed: 07/30/18 13:27> CCU Subjective - Physician Review Critical Care Time Spent (in minutes): 35 CCU Objective - Vital Signs / Intake & Output Vital Signs (Last 4 hours): Vital Signs Temp Pulse Resp BP Pulse Ox 07/30/18 13:00 64 12 99 07/30/18 12:35 72 13 150/79 98 07/30/18 12:00 97.7 F 78 12 100 07/30/18 11:35 62 15 168/79 H 100 07/30/18 11:00 57 L 12 100 07/30/18 10:35 56 L 13 160/78 H 100 07/30/18 10:00 66 14 99 07/30/18 09:35 59 L 11 L 161/85 H 99 Intake and Output (Last 8hrs): Intake & Output 07/29/18 07/30/18 07/30/18 22:59 06:59 14:59 Intake Total 581 0 700 Output Total 1300 600 400 Balance -719 -600 300 Weight 159 lb 6.307 oz Intake: IV 10 Intake, IV Amount 31 0 0 Left Wrist 10 0 Right Antecubital 21 0 0 Oral 540 700 Output: Urine 1300 600 400 Urine, Voided 1300 600 400 Emesis 0 0 0 Other: # Voids Urine, Voided 1 # Bowel Movements 0 0 0 - Medications Active Medications: Active Medications Generic Name Dose Route Start Last Admin Trade Name Freq PRN Reason Stop Dose Admin Enoxaparin Sodium 60 mg 07/30/18 10:00 07/30/18 09:22 Lovenox SC 60 mg Q12 KASIE Administration Fluticasone Propionate 1 spr 07/30/18 10:00 07/30/18 10:29 Flonase AMELIA Not Given DAILY KASIE Diltiazem HCl 125 mg/ Sodium 125 mls @ 5 mls/hr 07/29/18 14:45 07/29/18 17:23 Chloride IV 0 mg/hr .Q24H KASIE 0 mls/hr Titration Protocol 5 MG/HR Loratadine 10 mg 07/30/18 10:00 07/30/18 10:31 Claritin PO 10 mg DAILY KASIE Administration Losartan Potassium 100 mg 07/30/18 10:00 07/30/18 10:31 Cozaar PO 100 mg DAILY KASIE Administration Nebivolol 10 mg 07/30/18 10:00 07/30/18 10:30 Bystolic PO 10 mg DAILY KASIE Administration - Patient Studies Lab Studies: Lab Studies 07/30/18 07/30/1819 Range/Units 05:56 05:56 14:46 WBC 6.4 (4.8-10.8) K/uL RBC 4.79 (4.40-5.90) Mil/uL Hgb 14.8 (12.0-18.0) g/dL Hct 43.8 (35.0-51.0) % MCV 91.5 (80.0-94.0) fL MCH 30.9 (27.0-31.0) pg MCHC 33.8 (33.0-37.0) g/dL RDW 13.0 (11.5-14.5) % Plt Count 269 (130-400) K/uL MPV 7.2 (7.2-11.7) fL Neut % (Auto) 54.6 (50.0-75.0) % Lymph % (Auto) 30.8 (20.0-40.0) % [place] % (Auto) 10.5 H (0.0-10.0) % Eos % (Auto) 2.7 (0.0-4.0) % Baso % (Auto) 1.4 (0.0-2.0) % Neut # (Auto) 3.5 (1.8-7.0) K/uL Lymph # (Auto) 2.0 (1.0-4.3) K/uL [place] # (Auto) 0.7 (0.0-0.8) K/uL Eos # (Auto) 0.2 (0.0-0.7) K/uL Baso # (Auto) 0.1 (0.0-0.2) K/uL PT (9.7-12.2) SECONDS INR APTT (21-34) SECONDS Sodium 134 (132-148) mmol/L Potassium 4.0 (3.6-5.2) mmol/L Chloride 100 (98-107) mmol/L Carbon Dioxide 25 (22-30) mmol/L Anion Gap 13 (10-20) BUN 13 (9-20) mg/dL Creatinine 0.8 (0.8-1.5) mg/dL Est GFR ( Amer) > 60 Est GFR (Non-Af Amer) > 60 Random Glucose 104 (75-110) mg/dL Calcium 8.9 (8.6-10.4) mg/dl Phosphorus 3.1 (2.5-4.5) mg/dL Magnesium 2.0 (1.6-2.3) mg/dL Total Bilirubin 1.0 (0.2-1.3) mg/dL AST 41 (17-59) U/L ALT 26 (21-72) U/L Alkaline Phosphatase 71 (38-126) U/L Troponin I (0.00-0.120) ng/mL NT-Pro-B Natriuret Pep (0-900) pg/mL Total Protein 7.3 (6.3-8.3) g/dL Albumin 4.2 (3.5-5.0) g/dL Globulin 3.1 (2.2-3.9) gm/dL Albumin/Globulin Ratio 1.4 (1.0-2.1) Urine Color Yellow (YELLOW) Urine Clarity Clear (Clear) Urine pH 6.0 (5.0-8.0) Ur Specific [place] 1.009 (1.003-1.030) Urine Protein Negative (NEGATIVE) mg/dL Urine Glucose (UA) Normal (Normal) mg/dL Urine Ketones Negative (NEGATIVE) mg/dL Urine Blood 1+ H (NEGATIVE) Urine Nitrate Negative (NEGATIVE) Urine Bilirubin Negative (NEGATIVE) Urine Urobilinogen Normal (0.2-1.0) mg/dL Ur Leukocyte Esterase Neg (Negative) Morena/uL Urine WBC (Auto) 1 (0-5) /hpf Urine RBC (Auto) 11 H (0-3) /hpf Ur Squamous Epith Cells 1 (0-5) /hpf 07/29/18 07/29/18 Range/Units 13:16 13:16 WBC (4.8-10.8) K/uL RBC (4.40-5.90) Mil/uL Hgb (12.0-18.0) g/dL Hct (35.0-51.0) % MCV (80.0-94.0) fL MCH (27.0-31.0) pg MCHC (33.0-37.0) g/dL RDW (11.5-14.5) % Plt Count (130-400) K/uL MPV (7.2-11.7) fL Neut % (Auto) (50.0-75.0) % Lymph % (Auto) (20.0-40.0) % [place] % (Auto) (0.0-10.0) % Eos % (Auto) (0.0-4.0) % Baso % (Auto) (0.0-2.0) % Neut # (Auto) (1.8-7.0) K/uL Lymph # (Auto) (1.0-4.3) K/uL [place] # (Auto) (0.0-0.8) K/uL Eos # (Auto) (0.0-0.7) K/uL Baso # (Auto) (0.0-0.2) K/uL PT 11.7 (9.7-12.2) SECONDS INR 1.1 APTT 42.0 H (21-34) SECONDS Sodium 133 (132-148) mmol/L Potassium 5.1 (3.6-5.2) mmol/L Chloride 97 L (98-107) mmol/L Carbon Dioxide 27 (22-30) mmol/L Anion Gap 14 (10-20) BUN 17 (9-20) mg/dL Creatinine 1.0 (0.8-1.5) mg/dL Est GFR ( Amer) > 60 Est GFR (Non-Af Amer) > 60 Random Glucose 119 H (75-110) mg/dL Calcium 9.8 (8.6-10.4) mg/dl Phosphorus (2.5-4.5) mg/dL Magnesium (1.6-2.3) mg/dL Total Bilirubin 0.7 (0.2-1.3) mg/dL AST 44 (17-59) U/L ALT 27 (21-72) U/L Alkaline Phosphatase 92 (38-126) U/L Troponin I < 0.0120 (0.00-0.120) ng/mL NT-Pro-B Natriuret Pep 2350 H (0-900) pg/mL Total Protein 8.1 (6.3-8.3) g/dL Albumin 4.6 (3.5-5.0) g/dL Globulin 3.4 (2.2-3.9) gm/dL Albumin/Globulin Ratio 1.4 (1.0-2.1) Urine Color (YELLOW) Urine Clarity (Clear) Urine pH (5.0-8.0) Ur Specific [place] (1.003-1.030) Urine Protein (NEGATIVE) mg/dL Urine Glucose (UA) (Normal) mg/dL Urine Ketones (NEGATIVE) mg/dL Urine Blood (NEGATIVE) Urine Nitrate (NEGATIVE) Urine Bilirubin (NEGATIVE) Urine Urobilinogen (0.2-1.0) mg/dL Ur Leukocyte Esterase (Negative) Morena/uL Urine WBC (Auto) (0-5) /hpf Urine RBC (Auto) (0-3) /hpf Ur Squamous Epith Cells (0-5) /hpf Laboratory Results - last 24 hr 07/29/18 07/29/18 07/29/18 13:16 13:16 14:46 WBC RBC Hgb Hct MCV MCH MCHC RDW Plt Count MPV Neut % (Auto) Lymph % (Auto) [place] % (Auto) Eos % (Auto) Baso % (Auto) Neut # (Auto) Lymph # (Auto) [place] # (Auto) Eos # (Auto) Baso # (Auto) PT 11.7 INR 1.1 APTT 42.0 H Sodium 133 Potassium 5.1 Chloride 97 L Carbon Dioxide 27 Anion Gap 14 BUN 17 Creatinine 1.0 Est GFR ( Amer) > 60 Est GFR (Non-Af Amer) > 60 Random Glucose 119 H Calcium 9.8 Phosphorus Magnesium Total Bilirubin 0.7 AST 44 ALT 27 Alkaline Phosphatase 92 Troponin I < 0.0120 NT-Pro-B Natriuret Pep 2350 H Total Protein 8.1 Albumin 4.6 Globulin 3.4 Albumin/Globulin Ratio 1.4 Urine Color Yellow Urine Clarity Clear Urine pH 6.0 Ur Specific [place] 1.009 Urine Protein Negative Urine Glucose (UA) Normal Urine Ketones Negative Urine Blood 1+ H Urine Nitrate Negative Urine Bilirubin Negative Urine Urobilinogen Normal Ur Leukocyte Esterase Neg Urine WBC (Auto) 1 Urine RBC (Auto) 11 H Ur Squamous Epith Cells 1 07/30/18 07/30/18 05:56 05:56 WBC 6.4 RBC 4.79 Hgb 14.8 Hct 43.8 MCV 91.5 MCH 30.9 MCHC 33.8 RDW 13.0 Plt Count 269 MPV 7.2 Neut % (Auto) 54.6 Lymph % (Auto) 30.8 [place] % (Auto) 10.5 H Eos % (Auto) 2.7 Baso % (Auto) 1.4 Neut # (Auto) 3.5 Lymph # (Auto) 2.0 [place] # (Auto) 0.7 Eos # (Auto) 0.2 Baso # (Auto) 0.1 PT INR APTT Sodium 134 Potassium 4.0 Chloride 100 Carbon Dioxide 25 Anion Gap 13 BUN 13 Creatinine 0.8 Est GFR ( Amer) > 60 Est GFR (Non-Af Amer) > 60 Random Glucose 104 Calcium 8.9 Phosphorus 3.1 Magnesium 2.0 Total Bilirubin 1.0 AST 41 ALT 26 Alkaline Phosphatase 71 Troponin I NT-Pro-B Natriuret Pep Total Protein 7.3 Albumin 4.2 Globulin 3.1 Albumin/Globulin Ratio 1.4 Urine Color Urine Clarity Urine pH Ur Specific [place] Urine Protein Urine Glucose (UA) Urine Ketones Urine Blood Urine Nitrate Urine Bilirubin Urine Urobilinogen Ur Leukocyte Esterase Urine WBC (Auto) Urine RBC (Auto) Ur Squamous Epith Cells Radiology Impressions: Radiology Impressions Chest X-Ray 07/29/18 13:09 IMPRESSION: No active pulmonary disease. EKG/Cardiology Studies: Cardiology / EKG Studies 07/29/18 12:44 ELECTROCARDIOGRAM Stat Comment: Mode Of Transportation: BED Reason For Exam: SOB 07/29/18 13:09 ELECTROCARDIOGRAM Stat Comment: Mode Of Transportation: BED Reason For Exam: SOB Critical Care Progress Note - Nutrition Nutrition: Nutrition Category Date Time Status Heart Healthy Diet [DIET] Diets 07/29/18 Dinner Active Attending/Attestation - Attestation I have personally seen and examined this patient.: Yes I have fully participated in the care of the patient.: Yes I have reviewed all pertinent clinical information: Yes Notes (Text): 07/30/18 13:26 Patient seen and examined in the intensive care unit. Case discussed with housestaff in the morning rounds. Patient is off Cardizem drip On Lovenox Denies any chest pain Cardiology follow-up Transfer to telemetry
--- NOTE | 2018-07-30 17:31 | CARD ---
APPROVED REPORT Date of service: 07/30/2018 EXAM: Two-dimensional and M-mode echocardiogram with Doppler and color Doppler. Other Information Quality : GoodRhythm : INDICATION Dyspnea Atrial Fibrillation Palpitations RISK FACTORS Hypertension Hyperlipidemia 2D DIMENSIONS IVSd1.3 (0.7-1.1cm)LVDd4.2 (3.9-5.9cm) PWd0.9 (0.7-1.1cm)LA [id number] (18-58mL) LVDs2.6 (2.5-4.0cm)FS (%) 38.9 % LVEF (%)70.0 (>50%)LVEF ([place]'s)65 % M-Mode DIMENSIONS Left Atrium (MM)3.52 (2.5-4.0cm)IVSd0.68 (0.7-1.1cm) Aortic Root4.44 (2.2-3.7cm)LVDd5.96 (4.0-5.6cm) Aortic Cusp Exc.2.26 (1.5-2.0cm)PWd0.64 (0.7-1.1cm) FS (%) 52 %LVDs2.84 (2.0-3.8cm) LVEF (%)75 (>50%) Aortic Valve AI P 1/2 [id number] Mitral Valve MV E Gpajjiux34.3cm/sMV A Upfgoxao62.0cm/sE/A ratio1.6 TDI Lateral E' Peak V9.38cm/sMedial E' Peak V5.96cm/sE/Lateral E'9.1 E/Medial E'14.3 Tricuspid Valve TR Peak [id number]/sTR Peak [id number] LEFT VENTRICLE There is normal left ventricular wall thickness. The left ventricular function is normal. The left ventricular ejection fraction is within the normal range. There is normal LV segmental wall motion. RIGHT VENTRICLE The right ventricle is normal size. There is normal right ventricular wall thickness. The right ventricular systolic function is normal. ATRIA The left atrium size is normal. The right atrium size is normal. AORTIC VALVE The aortic valve is mildly thickened. There is mild to moderate aortic regurgitation. There is no aortic valvular stenosis. MITRAL VALVE The mitral valve is normal in structure. There is no evidence of mitral valve prolapse. There is no mitral valve stenosis. There is no mitral valve regurgitation noted. TRICUSPID VALVE There is mild tricuspid regurgitation. There is moderate to severe pulmonary hypertension. PULMONIC VALVE There is no pulmonic valvular regurgitation. GREAT VESSELS The aortic root is moderately enlarged. The IVC is normal in size and collapses >50% with inspiration. <Conclusion> There is normal left ventricular wall thickness. The left ventricular function is normal. The left ventricular ejection fraction is within the normal range. There is normal LV segmental wall motion. There is mild to moderate aortic regurgitation. The aortic root is moderately enlarged. There is mild tricuspid regurgitation. There is moderate to severe pulmonary hypertension.
--- NOTE | 2018-07-30 18:41 | CARD ---
APPROVED REPORT Date of service: 07/29/2018 EKG Measurement Heart [id number] [id number] <Conclusion> Sinus Tachycardia Inferior infarct, age undetermined Abnormal ECG
[2018-07-30] MEDS: Omega-3-Acid Ethyl Esters 1 GM Cap PO SCH (18:46)
--- NOTE | 2018-07-30 22:13 | CP.PCM.HP ---
Present on Admission - Present on Admission Any Indicators Present on Admission: No Past Patient History - Infectious Disease Hx of Infectious Diseases: None - Past Medical History & Family History Past Medical History?: Yes - Past Social History Smoking Status: Never Smoked - CARDIAC Hx Atrial Fibrillation: Yes Hx Cardia Arrhythmia: Yes Hx Hypercholesterolemia: Yes Hx Hypertension: Yes - PULMONARY Hx Respiratory Disorders: No - NEUROLOGICAL Hx Neurological Disorder: No - HEENT Hx HEENT Problems: No Other/Comment: seasonal allergies - RENAL Hx Chronic Kidney Disease: No - ENDOCRINE/METABOLIC Hx Endocrine Disorders: Yes Other/Comment: HX of recurrent hyponatremia - HEMATOLOGICAL/ONCOLOGICAL Hx Blood Disorders: No - INTEGUMENTARY Hx Dermatological Problems: No - MUSCULOSKELETAL/RHEUMATOLOGICAL Hx Falls: No - GASTROINTESTINAL Hx Gastrointestinal Disorders: Yes Hx Gastroesophageal Reflux: Yes Other/Comment: cholelithiasis - GENITOURINARY/GYNECOLOGICAL Hx Genitourinary Disorders: No - PSYCHIATRIC Hx Substance Use: No - SURGICAL HISTORY Hx Appendectomy: Yes Hx Cholecystectomy: Yes - ANESTHESIA Hx Anesthesia: Yes Hx Anesthesia Reactions: No Hx Malignant Hyperthermia: No Has any member of the family had a problem w/ anesthesia?: No Meds Allergies/Adverse Reactions: Allergies Allergy/AdvReac Type Severity Reaction Status Date / Time amlodipine Allergy Verified 07/29/18 12:52 Results - Vital Signs Recent Vital Signs: Last Vital Signs Temp 98.5 F 07/30/18 20:00 Pulse 79 07/30/18 22:00 Resp 11 L 07/30/18 22:00 BP 155/89 H 07/30/18 22:00 Pulse Ox 98 07/30/18 22:00 - Labs Result Diagrams: 07/30/18 05:56 07/30/18 05:56 Labs: Laboratory Results - last 24 hr 07/30/18 07/30/18 05:56 05:56 WBC 6.4 RBC 4.79 Hgb 14.8 Hct 43.8 MCV 91.5 MCH 30.9 MCHC 33.8 RDW 13.0 Plt Count 269 MPV 7.2 Neut % (Auto) 54.6 Lymph % (Auto) 30.8 [place] % (Auto) 10.5 H Eos % (Auto) 2.7 Baso % (Auto) 1.4 Neut # (Auto) 3.5 Lymph # (Auto) 2.0 [place]ill # (Auto) 0.7 Eos # (Auto) 0.2 Baso # (Auto) 0.1 Sodium 134 Potassium 4.0 Chloride 100 Carbon Dioxide 25 Anion Gap 13 BUN 13 Creatinine 0.8 Est GFR ( Amer) > 60 Est GFR (Non-Af Amer) > 60 Random Glucose 104 Calcium 8.9 Phosphorus 3.1 Magnesium 2.0 Total Bilirubin 1.0 AST 41 ALT 26 Alkaline Phosphatase 71 Total Protein 7.3 Albumin 4.2 Globulin 3.1 Albumin/Globulin Ratio 1.4
--- NOTE | 2018-07-30 23:38 | CP.PCM.PN ---
Subjective - Date & Time of Evaluation Date of Evaluation: 07/30/18 Time of Evaluation: 18:10 - Subjective Subjective: Patient seen and evaluated Feels better Denies chest pain and dyspnea Review of Systems - Constitutional Constitutional: absent: Chills, Fever - EENT Eyes: absent: Blurred Vision, Change in Vision Nose/Mouth/Throat: absent: Nasal Congestion, Nasal Discharge - Cardiovascular Cardiovascular: absent: Chest Pain, Dyspnea, Edema, Lightheadedness, Palpitations - Respiratory Respiratory: absent: Dyspnea, Wheezing - Gastrointestinal Gastrointestinal: absent: Abdominal Pain, Diarrhea, Nausea, Vomiting - Musculoskeletal Musculoskeletal: absent: Back Pain, Numbness, Tingling - Neurological Neurological: absent: Dizziness, Focal Weakness, Loss of Vision, Syncope, Weakness - Psychiatric Psychiatric: absent: Anxiety, Depression Physical Exam - Constitutional Appears: Non-toxic, No Acute Distress - Head Exam Head Exam: ATRAUMATIC, NORMOCEPHALIC - Eye Exam Eye Exam: EOMI - ENT Exam ENT Exam: Mucous Membranes Moist - Respiratory Exam Respiratory Exam: Clear to Auscultation Bilateral, NORMAL BREATHING PATTERN. absent: Rhonchi, Wheezes - Cardiovascular Exam Cardiovascular Exam: REGULAR RHYTHM, +S1, +S2 - GI/Abdominal Exam GI & Abdominal Exam: Normal Bowel Sounds, Soft. absent: Tenderness - Extremities Exam Extremities exam: Positive for: normal inspection. Negative for: pedal edema, tenderness - Neurological Exam Neurological exam: Alert, CN II-XII Intact, Oriented x3 - Psychiatric Exam Psychiatric exam: Normal Affect, Normal Mood - Skin Skin Exam: Dry, Intact Assessment & Plan - Assessment and Plan (Free Text) Assessment: 73 year old male with PMHx A Fib, HTN, HLD who presents in A Fib with rapid ventricular response A Fib with RVR -EKG - sinus tach HR 130s, a fib on cadiac monitor -ICU cardiac monitoring -Cardizem ggt started in ICU, titrate for rate control -Lovenox for A Fib -Patient without palpitations, dizziness, no symptoms of stroke/TIA HTN -c/w home meds Pulm -Saturating well on room air -Maintain spO2 above 92% Neuro -A and O x3 ECHO: Normal EF, Severe pulm HTN, Dilated Aortic root Objective - Vital Signs/Intake and Output Vital Signs (last 24 hours): Temp Pulse Resp BP Pulse Ox 98.5 F 79 11 L 155/89 H 98 07/30/18 20:00 07/30/18 22:00 07/30/18 22:00 07/30/18 22:00 07/30/18 22:00 Intake and Output: 07/30/18 07/31/18 18:59 06:59 Intake Total 1000 200 Output Total 900 600 Balance 100 -400 - Medications Medications: Current Medications Enoxaparin Sodium (Lovenox) 60 mg SC Q12 KASIE Last Admin: 07/30/18 21:50 Dose: 60 mg Fluticasone Propionate (Flonase) 1 spr AMELIA DAILY KASIE Last Admin: 07/30/18 10:29 Dose: Not Given Hydralazine HCl (Apresoline) 50 mg PO Q8H KASIE Last Admin: 07/30/18 21:50 Dose: 50 mg Diltiazem HCl 125 mg/ Sodium (Chloride) 125 mls @ 5 mls/hr IV .Q24H KASIE; Protocol Last Admin: 07/30/18 16:33 Dose: Not Given Loratadine (Claritin) 10 mg PO DAILY KASIE Last Admin: 07/30/18 10:31 Dose: 10 mg Losartan Potassium (Cozaar) 100 mg PO DAILY KASIE Last Admin: 07/30/18 10:31 Dose: 100 mg Nebivolol (Bystolic) 10 mg PO DAILY [facility] Last Admin: 07/30/18 10:30 Dose: 10 mg Tovad-2-Ggnr Ethyl Esters (Lovaza) 1 gm PO BID KASIE Last Admin: 07/30/18 18:46 Dose: 1 gm - Labs Labs: 07/30/18 05:56 07/30/18 05:56 PT 11.7 SECONDS (9.7-12.2) 07/29/18 13:16 INR 1.1 07/29/18 13:16 APTT 42.0 SECONDS (21-34) H 07/29/18 13:16
[2018-07-31 06:09] LABS: BASO # 0.1 K/uL (0.0-0.2); BASO % 0.7 % (0.0-2.0); EOS # 0.1 K/uL (0.0-0.7); EOS % 0.5 % (0.0-4.0); HEMOGLOBIN 14.8 g/dL (12.0-18.0); LYMPH % 21.7 % (20.0-40.0); MEAN CELL VOLUME 90.9 fL (80.0-94.0); MEAN CORPUSCULAR HEMOGLOBIN 31.1 pg (27.0-31.0); MEAN CORPUSCULAR HGB CONC 34.3 g/dL (33.0-37.0); MEAN PLATELET VOLUME 7.2 fL (7.2-11.7); MONO % 10.7 % (0.0-10.0); NEUT # 6.2 K/uL (1.8-7.0); NEUT % 66.4 % (50.0-75.0); RBC 4.75 Mil/uL (4.40-5.90); RED CELL DISTRIBUTION WIDTH 12.9 % (11.5-14.5); WHITE BLOOD COUNT 9.4 K/uL (4.8-10.8)
[2018-07-31 06:24] LABS: ALB/GLOB RATIO 1.4 (1.0-2.1); ALBUMIN 4.4 g/dL (3.5-5.0); ALT/SGPT 24 U/L (21-72); AST/SGOT 43 U/L (17-59); BLOOD UREA NITROGEN 12 mg/dL (9-20); CALCIUM 8.9 mg/dl (8.6-10.4); GFR NON-AFRICAN AMERICAN > 60
[2018-07-31 06:36] LABS: CK-MB 0.91 ng/mL (0.0-3.38)
[2018-07-31] MEDS ORDERED: Lidocaine 2% MPF (5 ml) Inj ONE ×2 (09:21→09:54)
[2018-07-31] MEDS ORDERED: Midazolam 2 MG/2 ML VIAL ONE (09:47)
[2018-07-31] MEDS ORDERED: Iohexol 350mg/ml 100 ML ONE (09:57)
[2018-07-31] MEDS ORDERED: Phenylephrine 10 mg/ml Inj ONE (10:01)
[2018-07-31] MEDS ORDERED: Digoxin 500 mcg/2ml (0.5 mg/2ml) Inj ONE (10:04)
[2018-07-31] MEDS ORDERED: Amiodarone 150mg/3 ml vial ONE (10:17)
[2018-07-31] MEDS: Sodium Chloride 0.9% 500 ML IV SCH ×2 (10:45→17:00)
[2018-07-31] MEDS: Fluticasone Nasal 50 mcg/Spray NAS SCH (11:45)
[2018-07-31] MEDS: Omega-3-Acid Ethyl Esters 1 GM Cap PO SCH ×2 (11:53→17:49)
--- NOTE | 2018-07-31 15:23 | CP.CCUPN ---
<Kirill De La Cruz - Last Filed: 07/31/18 15:18> CCU Subjective - Physician Review Subjective (Free Text): 07/30/18 10:51 PGY-1 Critical Care Progress Note for Dr. Howe Patient seen and examined at bedside. Patient in rapid A fib this morning on monitor. Off cardizem drip, amio drip started. Rate now controlled. Denies chest pain, palpitations, headache, dizziness, focal weakness, numbness, tingling, vision changes, shortness of breath. CCU Objective - Vital Signs / Intake & Output Vital Signs (Last 4 hours): Vital Signs Temp Pulse Resp BP Pulse Ox 07/31/18 15:00 122 H 14 98 07/31/18 14:00 102 H 15 127/67 07/31/18 13:30 105 H 14 142/68 07/31/18 13:00 95 H 14 136/71 07/31/18 12:30 127 H 15 133/88 07/31/18 12:00 97.3 F L 96 H 15 137/63 07/31/18 11:45 128 H 18 136/90 07/31/18 11:30 127 H 18 126/93 H Intake and Output (Last 8hrs): Intake & Output 07/31/18 07/31/18 07/31/18 06:59 14:59 22:59 Intake Total 175 773.2 Output Total 850 650 Balance -675 123.2 Weight 161 lb 8 oz Intake: Intake, IV Amount 0 533.2 Left Wrist 400 Right Antecubital 0 133.2 Oral 175 240 Output: Urine 850 650 Urine, Voided 850 650 Other: # Voids Urine, Voided 1 - Physical Exam Head: Positive for: Atraumatic, Normocephalic Pupils: Positive for: PERRL Extroacular Muscles: Positive for: EOMI Mouth: Positive for: Moist Mucous Membranes Respiratory/Chest: Positive for: Clear to Auscultation. Negative for: Accessory Muscle Use, Wheezes, Rales Cardiovascular: Positive for: Regular Rate and Rhythm, Normal S1, S2 Abdomen: Negative for: Tenderness, Distention Neurological: Positive for: GCS=15, CN II-XII Intact Skin: Positive for: Dry, Normal Color Psychiatric: Positive for: Alert, Oriented x 3 - Medications Active Medications: Active Medications Generic Name Dose Route Start Last Admin Trade Name Freq PRN Reason Stop Dose Admin Enoxaparin Sodium 60 mg 07/30/18 10:00 07/30/18 21:50 Lovenox SC 60 mg Q12 KASIE Administration Fluticasone Propionate 1 spr 07/30/18 10:00 07/31/18 11:45 Flonase AMELIA Not Given DAILY KASIE Hydralazine HCl 50 mg 07/30/18 22:00 07/31/18 14:20 Apresoline PO Not Given Q8H KASIE Diltiazem HCl 125 mg/ Sodium 125 mls @ 5 mls/hr 07/29/18 14:45 07/31/18 14:21 Chloride IV Not Given .Q24H KASIE Protocol 5 MG/HR Amiodarone HCl 900 mg/ 500 mls @ 33.33 mls/hr 07/31/18 10:15 07/31/18 10:55 Dextrose IV 08/01/18 01:15 33.33 mls/hr .Q15H1M ONE Administration Protocol 1 MG/MIN Sodium Chloride 500 mls @ 100 mls/hr 07/31/18 11:30 07/31/18 10:45 Sodium Chloride 0.9% IV 07/31/18 16:31 100 mls/hr .Q5H KASIE Administration Loratadine 10 mg 07/30/18 10:00 07/31/18 11:53 Claritin PO 10 mg DAILY KASIE Administration Losartan Potassium 100 mg 07/30/18 10:00 07/31/18 10:00 Cozaar PO Not Given DAILY KASIE Nebivolol 10 mg 07/30/18 10:00 07/31/18 10:00 Bystolic PO Not Given DAILY KASIE Kqqss-7-Wbug Ethyl Esters 1 gm 07/30/18 18:15 07/31/18 11:53 Lovaza PO 1 gm BID KASIE Administration - Patient Studies Lab Studies: Microbiology Studies 07/29/18 16:44 MRSA Culture (Admit) - Final Nose MRSA NOT DETECTED Lab Studies 07/31/18 07/31/18 Range/Units 06:05 06:05 WBC 9.4 (4.8-10.8) K/uL RBC 4.75 (4.40-5.90) Mil/uL Hgb 14.8 (12.0-18.0) g/dL Hct 43.2 (35.0-51.0) % MCV 90.9 (80.0-94.0) fL MCH 31.1 H (27.0-31.0) pg MCHC 34.3 (33.0-37.0) g/dL RDW 12.9 (11.5-14.5) % Plt Count 276 (130-400) K/uL MPV 7.2 (7.2-11.7) fL Neut % (Auto) 66.4 (50.0-75.0) % Lymph % (Auto) 21.7 (20.0-40.0) % Maries % (Auto) 10.7 H (0.0-10.0) % Eos % (Auto) 0.5 (0.0-4.0) % Baso % (Auto) 0.7 (0.0-2.0) % Neut # (Auto) 6.2 (1.8-7.0) K/uL Lymph # (Auto) 2.0 (1.0-4.3) K/uL Maries # (Auto) 1.0 H (0.0-0.8) K/uL Eos # (Auto) 0.1 (0.0-0.7) K/uL Baso # (Auto) 0.1 (0.0-0.2) K/uL Sodium 126 L (132-148) mmol/L Potassium 4.2 (3.6-5.2) mmol/L Chloride 92 L (98-107) mmol/L Carbon Dioxide 25 (22-30) mmol/L Anion Gap 13 (10-20) BUN 12 (9-20) mg/dL Creatinine 0.9 (0.8-1.5) mg/dL Est GFR ( Amer) > 60 Est GFR (Non-Af Amer) > 60 Random Glucose 117 H (75-110) mg/dL Calcium 8.9 (8.6-10.4) mg/dl Phosphorus 3.4 (2.5-4.5) mg/dL Magnesium 1.8 (1.6-2.3) mg/dL Total Bilirubin 1.5 H (0.2-1.3) mg/dL AST 43 (17-59) U/L ALT 24 (21-72) U/L Alkaline Phosphatase 77 (38-126) U/L Total Creatine Kinase 273 H (55-170) U/L CK-MB (Mass) 0.91 (0.0-3.38) ng/mL Troponin I < 0.0120 (0.00-0.120) ng/mL Total Protein 7.4 (6.3-8.3) g/dL Albumin 4.4 (3.5-5.0) g/dL Globulin 3.0 (2.2-3.9) gm/dL Albumin/Globulin Ratio 1.4 (1.0-2.1) TSH 3rd Generation 1.14 (0.46-4.68) mIU/L Laboratory Results - last 24 hr 07/31/18 07/31/18 06:05 06:05 WBC 9.4 RBC 4.75 Hgb 14.8 Hct 43.2 MCV 90.9 MCH 31.1 H MCHC 34.3 RDW 12.9 Plt Count 276 MPV 7.2 Neut % (Auto) 66.4 Lymph % (Auto) 21.7 Maries % (Auto) 10.7 H Eos % (Auto) 0.5 Baso % (Auto) 0.7 Neut # (Auto) 6.2 Lymph # (Auto) 2.0 Maries # (Auto) 1.0 H Eos # (Auto) 0.1 Baso # (Auto) 0.1 Sodium 126 L Potassium 4.2 Chloride 92 L Carbon Dioxide 25 Anion Gap 13 BUN 12 Creatinine 0.9 Est GFR ( Amer) > 60 Est GFR (Non-Af Amer) > 60 Random Glucose 117 H Calcium 8.9 Phosphorus 3.4 Magnesium 1.8 Total Bilirubin 1.5 H AST 43 ALT 24 Alkaline Phosphatase 77 Total Creatine Kinase 273 H CK-MB (Mass) 0.91 Troponin I < 0.0120 Total Protein 7.4 Albumin 4.4 Globulin 3.0 Albumin/Globulin Ratio 1.4 TSH 3rd Generation 1.14 Review of Systems - Review of Systems All systems: reviewed and no additional remarkable complaints except Critical Care Progress Note - Nutrition Nutrition: Nutrition Category Date Time Status Heart Healthy Diet [DIET] Diets 07/31/18 Lunch Active Assessment/Plan - Assessment and Plan (Free Text) Assessment: 73 year old male with PMHx A Fib, HTN, HLD who presents in A Fib with rapid ventricular response upon noting his pulse to be elevated following a morning workout. Patient placed on cardizem drip in ED admitted for inpatient ICU monitoring. Cardio A Fib with RVR -EKG on admission - sinus tach HR 130s, a fib on cadiac monitor -ICU cardiac monitoring -Cardizem ggt d/c'd -Heparin ggt d/c'd --> Lovenox 60 mg SC Q12 -Amio ggt initiated --> for bridge to PO -Patient without palpitations, dizziness, no symptoms of stroke/TIA -HR improved on monitor in 60s Meds -Lovenox 60 mg SC Q12 -Amiodarone ggt -Bystolic 10 mg PO daily HTN -c/w home meds --Bystolic 10 mg PO daily --Losartan 100 mg PO daily Pulm -Saturating well on room air -Maintain spO2 above 92% Neuro -A and O x3 PPx -Heparin 5000 U SC Assessment and plan d/w Dr. Carley De La Cruz, PGY-1 <Huang Howe - Last Filed: 07/31/18 16:37> CCU Objective - Vital Signs / Intake & Output Vital Signs (Last 4 hours): Vital Signs Temp Pulse Resp BP Pulse Ox 07/31/18 16:00 98.2 F 128 H 15 147/85 99 07/31/18 15:00 122 H 14 152/55 H 98 07/31/18 14:00 102 H 15 127/67 07/31/18 13:30 105 H 14 142/68 07/31/18 13:00 95 H 14 136/71 07/31/18 12:30 127 H 15 133/88 Intake and Output (Last 8hrs): Intake & Output 07/31/18 07/31/18 07/31/18 06:59 14:59 22:59 Intake Total 175 773.2 406.6 Output Total 850 650 250 Balance -675 123.2 156.6 Weight 161 lb 8 oz Intake: Intake, IV Amount 0 533.2 166.6 Left Wrist 400 100 Right Antecubital 0 133.2 66.6 Oral 175 240 240 Output: Urine 850 650 250 Urine, Voided 850 650 250 Other: # Voids Urine, Voided 1 1 - Medications Active Medications: Active Medications Generic Name Dose Route Start Last Admin Trade Name Freq PRN Reason Stop Dose Admin Enoxaparin Sodium 60 mg 07/30/18 10:00 07/30/18 21:50 Lovenox SC 60 mg Q12 KASIE Administration Fluticasone Propionate 1 spr 07/30/18 10:00 07/31/18 11:45 Flonase AMELIA Not Given DAILY KASIE Hydralazine HCl 50 mg 07/30/18 22:00 07/31/18 14:20 Apresoline PO Not Given Q8H KASIE Amiodarone HCl 900 mg/ 500 mls @ 33.33 mls/hr 07/31/18 10:15 07/31/18 10:55 Dextrose IV 08/01/18 01:15 33.33 mls/hr .Q15H1M ONE Administration Protocol 1 MG/MIN Sodium Chloride 500 mls @ 100 mls/hr 07/31/18 11:30 07/31/18 10:45 Sodium Chloride 0.9% IV 07/31/18 16:31 100 mls/hr .Q5H KASIE Administration Loratadine 10 mg 07/30/18 10:00 07/31/18 11:53 Claritin PO 10 mg DAILY KASIE Administration Losartan Potassium 100 mg 07/30/18 10:00 07/31/18 10:00 Cozaar PO Not Given DAILY KASIE Nebivolol 10 mg 07/30/18 10:00 07/31/18 10:00 Bystolic PO Not Given DAILY KASIE Lwwvn-0-Bvnc Ethyl Esters 1 gm 07/30/18 18:15 07/31/18 11:53 Lovaza PO 1 gm BID KASIE Administration - Patient Studies Lab Studies: Microbiology Studies 07/29/18 16:44 MRSA Culture (Admit) - Final Nose MRSA NOT DETECTED Lab Studies 07/31/18 07/31/18 Range/Units 06:05 06:05 WBC 9.4 (4.8-10.8) K/uL RBC 4.75 (4.40-5.90) Mil/uL Hgb 14.8 (12.0-18.0) g/dL Hct 43.2 (35.0-51.0) % MCV 90.9 (80.0-94.0) fL MCH 31.1 H (27.0-31.0) pg MCHC 34.3 (33.0-37.0) g/dL RDW 12.9 (11.5-14.5) % Plt Count 276 (130-400) K/uL MPV 7.2 (7.2-11.7) fL Neut % (Auto) 66.4 (50.0-75.0) % Lymph % (Auto) 21.7 (20.0-40.0) % Maries % (Auto) 10.7 H (0.0-10.0) % Eos % (Auto) 0.5 (0.0-4.0) % Baso % (Auto) 0.7 (0.0-2.0) % Neut # (Auto) 6.2 (1.8-7.0) K/uL Lymph # (Auto) 2.0 (1.0-4.3) K/uL Maries # (Auto) 1.0 H (0.0-0.8) K/uL Eos # (Auto) 0.1 (0.0-0.7) K/uL Baso # (Auto) 0.1 (0.0-0.2) K/uL Sodium 126 L (132-148) mmol/L Potassium 4.2 (3.6-5.2) mmol/L Chloride 92 L (98-107) mmol/L Carbon Dioxide 25 (22-30) mmol/L Anion Gap 13 (10-20) BUN 12 (9-20) mg/dL Creatinine 0.9 (0.8-1.5) mg/dL Est GFR ( Amer) > 60 Est GFR (Non-Af Amer) > 60 Random Glucose 117 H (75-110) mg/dL Calcium 8.9 (8.6-10.4) mg/dl Phosphorus 3.4 (2.5-4.5) mg/dL Magnesium 1.8 (1.6-2.3) mg/dL Total Bilirubin 1.5 H (0.2-1.3) mg/dL AST 43 (17-59) U/L ALT 24 (21-72) U/L Alkaline Phosphatase 77 (38-126) U/L Total Creatine Kinase 273 H (55-170) U/L CK-MB (Mass) 0.91 (0.0-3.38) ng/mL Troponin I < 0.0120 (0.00-0.120) ng/mL Total Protein 7.4 (6.3-8.3) g/dL Albumin 4.4 (3.5-5.0) g/dL Globulin 3.0 (2.2-3.9) gm/dL Albumin/Globulin Ratio 1.4 (1.0-2.1) TSH 3rd Generation 1.14 (0.46-4.68) mIU/L Laboratory Results - last 24 hr 07/31/18 07/31/18 06:05 06:05 WBC 9.4 RBC 4.75 Hgb 14.8 Hct 43.2 MCV 90.9 MCH 31.1 H MCHC 34.3 RDW 12.9 Plt Count 276 MPV 7.2 Neut % (Auto) 66.4 Lymph % (Auto) 21.7 Maries % (Auto) 10.7 H Eos % (Auto) 0.5 Baso % (Auto) 0.7 Neut # (Auto) 6.2 Lymph # (Auto) 2.0 Maries # (Auto) 1.0 H Eos # (Auto) 0.1 Baso # (Auto) 0.1 Sodium 126 L Potassium 4.2 Chloride 92 L Carbon Dioxide 25 Anion Gap 13 BUN 12 Creatinine 0.9 Est GFR ( Amer) > 60 Est GFR (Non-Af Amer) > 60 Random Glucose 117 H Calcium 8.9 Phosphorus 3.4 Magnesium 1.8 Total Bilirubin 1.5 H AST 43 ALT 24 Alkaline Phosphatase 77 Total Creatine Kinase 273 H CK-MB (Mass) 0.91 Troponin I < 0.0120 Total Protein 7.4 Albumin 4.4 Globulin 3.0 Albumin/Globulin Ratio 1.4 TSH 3rd Generation 1.14 Critical Care Progress Note - Nutrition Nutrition: Nutrition Category Date Time Status Heart Healthy Diet [DIET] Diets 07/31/18 Lunch Active Attending/Attestation - Attestation I have personally seen and examined this patient.: Yes I have fully participated in the care of the patient.: Yes I have reviewed all pertinent clinical information: Yes Notes (Text): 07/31/18 16:24 I have seen and examined the patient. Medical records, lab studies, and imaging were reviewed by me and a management plan was formulated on multidisciplinary rounds with resident Dr. De La Cruz. I agree with their documented assessment and plan. Patient underwent cath today, clean coronaries. Started on amiodarone loading drip and continue sotalol for rate control of afib, discussed with Dr. Gamboa. Critical Care Time 35 minutes. Multi-disciplinary rounds were performed with house staff, nursing, speech therapy, respiratory therapy, pharmacy and nutrition with integrated input from the primary team/attending and other consulting services. The documented time is cumulative and includes review of patient data/exams/labs/chart review and examination of the patient on rounds and throughout the day; time is exclusive of any procedures or teaching time.
--- NOTE | 2018-07-31 16:24 | HP ---
CHIEF COMPLAINT: Chest pain. HISTORY OF PRESENT ILLNESS: This is a 73-year-old Syrian male with history of hypertension, hyperlipidemia, atrial fibrillation. The patient is compliant with his diet, medication, and followup and he is able to check his own pulse and blood pressure and he found that he has been tachycardic. Recently, he was switched over from Losartan to Benicar a month ago because of the drug recall. The patient was trialed on Xarelto and later on was switched over to Eliquis. The patient takes Sotalol as well and he tachycardia in form of atrial flutter. The patient occasionally gets chest pain, but he denies any history of dyspnea, dyspnea on exertion, orthopnea, PND. Denies any history of fever, chills, rigors. He denies any history of cough, sore throat, runny nose. There is no history of trauma, fall, or loss of consciousness. There is no history of falls. There is no history of abdominal pain, nausea, vomiting. There is no history of GI bleed. There is no history of joint pain, hip pain. There is no history of tingling, numbness, paresthesias. There is no history of sneezing, itchy eyes, itchy nose. There is no history of polyuria, polydipsia, polyphagia. CURRENT MEDICATIONS AT HOME: He is on Benicar, Bystolic, Eliquis, and Sotalol 40 mg daily. PAST MEDICAL HISTORY: Hypertension, hyperlipidemia. SOCIAL HISTORY: Nonsmoker, non-EtOH user. PHYSICAL EXAMINATION: GENERAL: An elderly male in no acute distress. VITAL SIGNS: Blood pressure is 154/89, pulse 71, respiratory rate 16, temperature 98. SKIN: No rashes. No bruises. No purpura. HEENT: Atraumatic and normocephalic. Negative pallor. Negative jaundice. Extraocular movements are intact. NECK: Supple. No JVD. No lymph node. No thyromegaly. No carotid bruits. CHEST WALL: Bilateral symmetrical expansion. LUNGS: No rales. No rhonchi. CARDIOVASCULAR SYSTEM: S1 and S2, regular. No heave. No thrill. ABDOMEN: Soft and nontender. Bowel sounds are positive. RECTAL: No masses. No bleed. EXTREMITIES: No clubbing, cyanosis or edema. CENTRAL NERVOUS SYSTEM: Awake, alert and oriented x3. Cranial nerves II through XII are normal. Power 5/5 x4. Plantars are downgoing. ASSESSMENT: 1. Atrial flutter with rate is controlled. The patient is on beta-blockers. 2. Hypertension, poorly controlled. 3. Rule out hyperlipidemia. 4. Rule out hypertensive cardiomyopathy. PLAN: Admit. Detailed orders are written. Seen and examined. Darius Soto MD
[2018-07-31] MEDS ORDERED: Sotalol 40 mg Tab PO SCH (18:00)
--- NOTE | 2018-07-31 18:35 | CP.PCM.CON ---
History of Present Illness - History of Present Illness History of Present Illness: Reason for consultation: Pulmonary hypertension 73-year-old male with history of atrial fibrillation was admitted with A. fib rapid ventricular rate and initially was started on Cardizem drip which was later discontinued. Status post cardiac cath with normal coronaries and was started on amiodarone drip for A. fib with rapid rate. Echocardiogram consistent with moderate to severe pulmonary hypertension. Denies chest pain, denies cough, denies fever chills. Review of Systems - Review of Systems All systems: reviewed and no additional remarkable complaints except (Complaining of palpitation) Past Patient History - Infectious Disease Hx of Infectious Diseases: None - Past Medical History & Family History Past Medical History?: Yes - Past Social History Smoking Status: Never Smoked - CARDIAC Hx Atrial Fibrillation: Yes Hx Cardia Arrhythmia: Yes Hx Hypercholesterolemia: Yes Hx Hypertension: Yes - PULMONARY Hx Respiratory Disorders: No - NEUROLOGICAL Hx Neurological Disorder: No - HEENT Hx HEENT Problems: No Other/Comment: seasonal allergies - RENAL Hx Chronic Kidney Disease: No - ENDOCRINE/METABOLIC Hx Endocrine Disorders: Yes Other/Comment: HX of recurrent hyponatremia - HEMATOLOGICAL/ONCOLOGICAL Hx Blood Disorders: No - INTEGUMENTARY Hx Dermatological Problems: No - MUSCULOSKELETAL/RHEUMATOLOGICAL Hx Falls: No - GASTROINTESTINAL Hx Gastrointestinal Disorders: Yes Hx Gastroesophageal Reflux: Yes Other/Comment: cholelithiasis - GENITOURINARY/GYNECOLOGICAL Hx Genitourinary Disorders: No - PSYCHIATRIC Hx Substance Use: No - SURGICAL HISTORY Hx Appendectomy: Yes Hx Cholecystectomy: Yes - ANESTHESIA Hx Anesthesia: Yes Hx Anesthesia Reactions: No Hx Malignant Hyperthermia: No Has any member of the family had a problem w/ anesthesia?: No Meds Allergies/Adverse Reactions: Allergies Allergy/AdvReac Type Severity Reaction Status Date / Time amlodipine Allergy Verified 07/29/18 12:52 - Medications Medications: Current Medications Enoxaparin Sodium (Lovenox) 60 mg SC Q12 [facility] Last Admin: 07/30/18 21:50 Dose: 60 mg Fluticasone Propionate (Flonase) 1 spr AMELIA DAILY [facility] Last Admin: 07/31/18 11:45 Dose: Not Given Hydralazine HCl (Apresoline) 50 mg PO Q8H [facility] Last Admin: 07/31/18 14:20 Dose: Not Given Amiodarone HCl 900 mg/ (Dextrose) 500 mls @ 16.67 mls/hr IV .Q24H ONE; Protocol Stop: 08/01/18 16:59 Last Admin: 07/31/18 16:55 Dose: 16.67 mls/hr Loratadine (Claritin) 10 mg PO DAILY [facility] Last Admin: 07/31/18 11:53 Dose: 10 mg Losartan Potassium (Cozaar) 100 mg PO DAILY [facility] Last Admin: 07/31/18 10:00 Dose: Not Given Clhvl-3-Wdpk Ethyl Esters (Lovaza) 1 gm PO BID [facility] Last Admin: 07/31/18 17:49 Dose: 1 gm Physical Exam - Head Exam Head Exam: ATRAUMATIC, NORMOCEPHALIC - ENT Exam ENT Exam: Mucous Membranes Moist - Neck Exam Neck exam: Positive for: Normal Inspection - Respiratory Exam Respiratory Exam: Clear to Auscultation Bilateral - Cardiovascular Exam Cardiovascular Exam: Irregular Rhythm - GI/Abdominal Exam GI & Abdominal Exam: Normal Bowel Sounds - Extremities Exam Extremities exam: Positive for: normal inspection Results - Vital Signs Recent Vital Signs: Last Vital Signs Temp 98.2 F 07/31/18 16:00 Pulse 113 H 07/31/18 18:00 Resp 14 07/31/18 18:00 BP 142/86 07/31/18 18:20 Pulse Ox 98 07/31/18 18:00 - Labs Result Diagrams: 07/31/18 06:05 07/31/18 06:05 Labs: Laboratory Results - last 24 hr 07/31/18 07/31/18 06:05 06:05 WBC 9.4 RBC 4.75 Hgb 14.8 Hct 43.2 MCV 90.9 MCH 31.1 H MCHC 34.3 RDW 12.9 Plt Count 276 MPV 7.2 Neut % (Auto) 66.4 Lymph % (Auto) 21.7 [place] % (Auto) 10.7 H Eos % (Auto) 0.5 Baso % (Auto) 0.7 Neut # (Auto) 6.2 Lymph # (Auto) 2.0 [place] # (Auto) 1.0 H Eos # (Auto) 0.1 Baso # (Auto) 0.1 Sodium 126 L Potassium 4.2 Chloride 92 L Carbon Dioxide 25 Anion Gap 13 BUN 12 Creatinine 0.9 Est GFR ( Amer) > 60 Est GFR (Non-Af Amer) > 60 Random Glucose 117 H Calcium 8.9 Phosphorus 3.4 Magnesium 1.8 Total Bilirubin 1.5 H AST 43 ALT 24 Alkaline Phosphatase 77 Total Creatine Kinase 273 H CK-MB (Mass) 0.91 Troponin I < 0.0120 Total Protein 7.4 Albumin 4.4 Globulin 3.0 Albumin/Globulin Ratio 1.4 TSH 3rd Generation 1.14 Assessment & Plan (1) Pulmonary hypertension Status: Acute Comment: Of unknown etiology. No history of smoking/COPD. Consider right heart cath with vasoreactivity testing. Consider sleep study. Autoimmune work-up (2) Atrial fibrillation Status: Chronic Priority: Medium
[2018-07-31] MEDS: Enoxaparin 60 mg Syringe SC SCH (21:24)
--- NOTE | 2018-07-31 22:41 | CP.PCM.CON ---
History of Present Illness - History of Present Illness History of Present Illness: Dr. Gamboa has asked me to see this patient with PAF. This is a 73 yo man with a CV history of PAF, HTN and mixed hyperlipidemia. He was first diagnosed with atrial fibrillation several years ago. AT that time he was prescribed sotalol. He reports that the full strength sotalol made him excessively bradycardic so for the past few years he has taking 1/2 of an 80mg tablet once a day (40 mg daily). His BNP was markedly elevated on admission. He underwent cardiac cath which revealed no significant CAD. Due to intermittant PAF he now is on amiodarone intravenously. AT baseline he does not routinely get palpitations. No other modifying factors. He noticed the rapid HR this time when he was excercising. There was an unusual sensation in his chest and palpitatinos. He had his check his pulse and it was very rapid. PMEDHx: PAF, pulm HTN, systemic HTN, s/p appy, s/p ccy Social Hx: no tobacco or alcohol use Family Hx: No premature CAD or sudden EC07/29/18: afib at 135 bpm. narrow QRS. nsra Echo 07/30/18 LA 3.5 Mild MR diastolic dysfunction pulmonary pressure 60 Review of Systems - Constitutional Constitutional: absent: Fatigue, Fever - EENT Eyes: absent: Blind Spots, Blurred Vision Ears: absent: Abnormal Hearing, Disequilibrium Nose/Mouth/Throat: absent: Epistaxis, Nasal Congestion - Cardiovascular Cardiovascular: Dyspnea on Exertion, Irregular Heart Rhythm. absent: Acrocyanosis - Respiratory Respiratory: absent: Cough, Dyspnea - Gastrointestinal Gastrointestinal: absent: Abdominal Pain - Genitourinary Genitourinary: absent: Flank Pain - Musculoskeletal Musculoskeletal: absent: Arthralgias, Back Pain - Integumentary Integumentary: absent: Bleeding Lesions - Psychiatric Psychiatric: absent: Confusion - Hematologic/Lymphatic Hematologic: absent: Easy Bleeding, Easy Bruising Past Patient History - Infectious Disease Hx of Infectious Diseases: None - Past Medical History & Family History Past Medical History?: Yes - Past Social History Smoking Status: Never Smoked - CARDIAC Hx Atrial Fibrillation: Yes Hx Cardia Arrhythmia: Yes Hx Hypercholesterolemia: Yes Hx Hypertension: Yes - PULMONARY Hx Respiratory Disorders: No - NEUROLOGICAL Hx Neurological Disorder: No - HEENT Hx HEENT Problems: No Other/Comment: seasonal allergies - RENAL Hx Chronic Kidney Disease: No - ENDOCRINE/METABOLIC Hx Endocrine Disorders: Yes Other/Comment: HX of recurrent hyponatremia - HEMATOLOGICAL/ONCOLOGICAL Hx Blood Disorders: No - INTEGUMENTARY Hx Dermatological Problems: No - MUSCULOSKELETAL/RHEUMATOLOGICAL Hx Falls: No - GASTROINTESTINAL Hx Gastrointestinal Disorders: Yes Hx Gastroesophageal Reflux: Yes Other/Comment: cholelithiasis - GENITOURINARY/GYNECOLOGICAL Hx Genitourinary Disorders: No - PSYCHIATRIC Hx Substance Use: No - SURGICAL HISTORY Hx Appendectomy: Yes Hx Cholecystectomy: Yes - ANESTHESIA Hx Anesthesia: Yes Hx Anesthesia Reactions: No Hx Malignant Hyperthermia: No Has any member of the family had a problem w/ anesthesia?: No Meds Allergies/Adverse Reactions: Allergies Allergy/AdvReac Type Severity Reaction Status Date / Time amlodipine Allergy Verified 07/29/18 12:52 - Medications Medications: Current Medications Diltiazem HCl (Cardizem) 30 mg PO QID [facility] Last Admin: 07/31/18 21:24 Dose: 30 mg Enoxaparin Sodium (Lovenox) 60 mg SC Q12 [facility] Last Admin: 07/31/18 21:24 Dose: 60 mg Fluticasone Propionate (Flonase) 1 spr AMELIA DAILY [facility] Last Admin: 07/31/18 11:45 Dose: Not Given Hydralazine HCl (Apresoline) 50 mg PO Q8H [facility] Last Admin: 07/31/18 21:24 Dose: 50 mg Amiodarone HCl 900 mg/ (Dextrose) 500 mls @ 16.67 mls/hr IV .Q24H ONE; Protocol Stop: 08/01/18 16:59 Last Admin: 07/31/18 16:55 Dose: 16.67 mls/hr Loratadine (Claritin) 10 mg PO DAILY [facility] Last Admin: 07/31/18 11:53 Dose: 10 mg Losartan Potassium (Cozaar) 100 mg PO DAILY [facility] Last Admin: 07/31/18 10:00 Dose: Not Given Amqjc-4-Brez Ethyl Esters (Lovaza) 1 gm PO BID [facility] Last Admin: 07/31/18 17:49 Dose: 1 gm Physical Exam - Constitutional Appears: Non-toxic - Head Exam Head Exam: ATRAUMATIC, NORMAL INSPECTION, NORMOCEPHALIC - Eye Exam Eye Exam: EOMI, Normal appearance - ENT Exam ENT Exam: Mucous Membranes Moist - Neck Exam Neck exam: Positive for: Normal Inspection - Respiratory Exam Respiratory Exam: Clear to Auscultation Bilateral, NORMAL BREATHING PATTERN - Cardiovascular Exam Cardiovascular Exam: REGULAR RHYTHM - GI/Abdominal Exam GI & Abdominal Exam: Normal Bowel Sounds, Soft - Neurological Exam Neurological exam: Alert, Oriented x3 - Skin Skin Exam: Dry, Normal Color, Warm Results - Vital Signs Recent Vital Signs: Last Vital Signs Temp 98 F 07/31/18 20:00 Pulse 58 L 07/31/18 22:20 Resp 13 07/31/18 22:20 BP 124/70 07/31/18 22:20 Pulse Ox 99 07/31/18 22:20 - Labs Result Diagrams: 07/31/18 06:05 07/31/18 06:05 Labs: Laboratory Results - last 24 hr 07/31/18 07/31/18 06:05 06:05 WBC 9.4 RBC 4.75 Hgb 14.8 Hct 43.2 MCV 90.9 MCH 31.1 H MCHC 34.3 RDW 12.9 Plt Count 276 MPV 7.2 Neut % (Auto) 66.4 Lymph % (Auto) 21.7 [place] % (Auto) 10.7 H Eos % (Auto) 0.5 Baso % (Auto) 0.7 Neut # (Auto) 6.2 Lymph # (Auto) 2.0 [place] # (Auto) 1.0 H Eos # (Auto) 0.1 Baso # (Auto) 0.1 Sodium 126 L Potassium 4.2 Chloride 92 L Carbon Dioxide 25 Anion Gap 13 BUN 12 Creatinine 0.9 Est GFR ( Amer) > 60 Est GFR (Non-Af Amer) > 60 Random Glucose 117 H Calcium 8.9 Phosphorus 3.4 Magnesium 1.8 Total Bilirubin 1.5 H AST 43 ALT 24 Alkaline Phosphatase 77 Total Creatine Kinase 273 H CK-MB (Mass) 0.91 Troponin I < 0.0120 Total Protein 7.4 Albumin 4.4 Globulin 3.0 Albumin/Globulin Ratio 1.4 TSH 3rd Generation 1.14 Assessment & Plan - Assessment and Plan (Free Text) Assessment: 73 yo man with systemic HTN, pulmonary HTN, PAF and mixed hyperlipidemia. PAF: Previously took a very low dose of sotalol 40mg daily. Patient reports he can't tolerate higher dose due to bradycardia. I agree that amiodarone is the bet pharmacologic choice for him. Will change to oral in the morning. Should take amiodarone 400 bid for one week and then 200 bid for 3 weeks (70 pills). Given his normal heart structure he is a good candidate for ablation, but wants to see how medicatinos due first. CHADSVASC (>65, >75, HTN) 3. I suggest long- term anticoagulation to reduce CVA risk. HTN: stable Mixed hyperlipidemia: statin. Pulmonary HTN: Stable Diastolic dysfnciton: stable
--- NOTE | 2018-07-31 22:43 | CP.PCM.PN ---
Subjective - Date & Time of Evaluation Date of Evaluation: 07/31/18 Time of Evaluation: 09:00 - Subjective Subjective: dict Objective - Vital Signs/Intake and Output Vital Signs (last 24 hours): Temp Pulse Resp BP Pulse Ox 98 F 58 L 13 124/70 99 07/31/18 20:00 07/31/18 22:20 07/31/18 22:20 07/31/18 22:20 07/31/18 22:20 Intake and Output: 07/31/18 08/01/18 18:59 06:59 Intake Total 1453.2 266.8 Output Total 900 Balance 553.2 266.8 - Medications Medications: Current Medications Diltiazem HCl (Cardizem) 30 mg PO QID [facility] Last Admin: 07/31/18 21:24 Dose: 30 mg Enoxaparin Sodium (Lovenox) 60 mg SC Q12 [facility] Last Admin: 07/31/18 21:24 Dose: 60 mg Fluticasone Propionate (Flonase) 1 spr AMELIA DAILY [facility] Last Admin: 07/31/18 11:45 Dose: Not Given Hydralazine HCl (Apresoline) 50 mg PO Q8H [facility] Last Admin: 07/31/18 21:24 Dose: 50 mg Amiodarone HCl 900 mg/ (Dextrose) 500 mls @ 16.67 mls/hr IV .Q24H ONE; Protocol Stop: 08/01/18 16:59 Last Admin: 07/31/18 16:55 Dose: 16.67 mls/hr Loratadine (Claritin) 10 mg PO DAILY [facility] Last Admin: 07/31/18 11:53 Dose: 10 mg Losartan Potassium (Cozaar) 100 mg PO DAILY [facility] Last Admin: 07/31/18 10:00 Dose: Not Given Riqzy-9-Bfzu Ethyl Esters (Lovaza) 1 gm PO BID [facility] Last Admin: 07/31/18 17:49 Dose: 1 gm - Labs Labs: 07/31/18 06:05 07/31/18 06:05 PT 11.7 SECONDS (9.7-12.2) 07/29/18 13:16 INR 1.1 07/29/18 13:16 APTT 42.0 SECONDS (21-34) H 07/29/18 13:16
--- NOTE | 2018-08-01 01:50 | PN ---
DATE: 07/31/2018 SUBJECTIVE: The patient is status post cardiac cath. The patient has normal coronaries. The patient is afebrile. He has episodes of atrial flutter and fibrillation during the catheterization. The patient is afebrile. No shortness of breath. No chest pain. No nausea or vomiting. PHYSICAL EXAMINATION: VITAL SIGNS: Blood pressure 124/70, pulse 58, respiratory rate 12, and temperature 99. LUNGS: Clear. No rales. No rhonchi. CARDIOVASCULAR SYSTEM: S1 and S2, regular. ABDOMEN: Soft and nontender. Bowel sounds are positive. ASSESSMENT: 1. Atrial flutter/fibrillation, negative coronaries, history of hypertensive heart disease. 2. Hypertension. 3. Hyponatremia which could be dilutional. PLAN: Continue ICU evaluation and care. Monitor the patient. Plan of care per Cardiology. Darius Soto MD
[2018-08-01 06:17] LABS: BASO # 0.1 K/uL (0.0-0.2); BASO % 0.7 % (0.0-2.0); EOS % 0.6 % (0.0-4.0); HEMOGLOBIN 15.2 g/dL (12.0-18.0); LYMPH # 1.8 K/uL (1.0-4.3); LYMPH % 21.5 % (20.0-40.0); MEAN CELL VOLUME 91.2 fL (80.0-94.0); MEAN PLATELET VOLUME 6.9 fL (7.2-11.7); MONO # 1.1 K/uL (0.0-0.8); MONO % 13.6 % (0.0-10.0); NEUT # 5.3 K/uL (1.8-7.0); NEUT % 63.6 % (50.0-75.0); RBC 4.89 Mil/uL (4.40-5.90); RED CELL DISTRIBUTION WIDTH 12.9 % (11.5-14.5); WHITE BLOOD COUNT 8.4 K/uL (4.8-10.8)
[2018-08-01 06:33] LABS: LDL CHOLESTEROL 118 mg/dL (0-129)
[2018-08-01 06:43] LABS: ALB/GLOB RATIO 1.6 (1.0-2.1); ALBUMIN 4.3 g/dL (3.5-5.0); ALT/SGPT 17 U/L (21-72); AST/SGOT 35 U/L (17-59); BLOOD UREA NITROGEN 14 mg/dL (9-20); CALCIUM 9.1 mg/dl (8.6-10.4); GFR NON-AFRICAN AMERICAN > 60; HDL CHOLESTEROL 48 mg/dL (30-70)
[2018-08-01] MEDS: Enoxaparin 60 mg Syringe SC SCH ×2 (09:37→22:08)
--- NOTE | 2018-08-01 10:00 | CP.PCM.PN ---
<Leidy Rashid - Last Filed: 08/01/18 09:46> Subjective - Date & Time of Evaluation Date of Evaluation: 08/01/18 Time of Evaluation: 09:46 - Subjective Subjective: Progress note for Dr. Gamboa Patient was seen and examined at bedside in no acute distress. Patient reports feeling well today and has no complaints today. He currently denies having chest pain, palpitations, sob, cough, n/v, abdominal pain, fevers, headaches, di zziness, vision changes, leg pain, and leg swelling. Objective - Vital Signs/Intake and Output Vital Signs (last 24 hours): Temp Pulse Resp BP Pulse Ox 98.2 F 74 15 98/40 L 98 08/01/18 04:00 08/01/18 07:21 08/01/18 07:21 08/01/18 07:21 08/01/18 07:21 Intake and Output: 08/01/18 08/01/18 06:59 18:59 Intake Total 366.8 180 Output Total 900 0 Balance -533.2 180 - Medications Medications: Current Medications Diltiazem HCl (Cardizem) 30 mg PO QID [facility] Last Admin: 08/01/18 09:37 Dose: 30 mg Enoxaparin Sodium (Lovenox) 60 mg SC Q12 [facility] Last Admin: 08/01/18 09:37 Dose: 60 mg Fluticasone Propionate (Flonase) 1 spr AMELIA DAILY [facility] Last Admin: 07/31/18 11:45 Dose: Not Given Hydralazine HCl (Apresoline) 50 mg PO Q8H [facility] Last Admin: 08/01/18 06:05 Dose: 50 mg Amiodarone HCl 900 mg/ (Dextrose) 500 mls @ 16.67 mls/hr IV .Q24H ONE; Protocol Stop: 08/01/18 16:59 Last Admin: 07/31/18 16:55 Dose: 16.67 mls/hr Loratadine (Claritin) 10 mg PO DAILY [facility] Last Admin: 07/31/18 11:53 Dose: 10 mg Losartan Potassium (Cozaar) 100 mg PO DAILY [facility] Last Admin: 08/01/18 09:36 Dose: 100 mg Uwurl-7-Wfpk Ethyl Esters (Lovaza) 1 gm PO BID [facility] Last Admin: 07/31/18 17:49 Dose: 1 gm - Labs Labs: 08/01/18 06:04 08/01/18 06:04 PT 11.7 SECONDS (9.7-12.2) 07/29/18 13:16 INR 1.1 07/29/18 13:16 APTT 42.0 SECONDS (21-34) H 07/29/18 13:16 - Constitutional Appears: No Acute Distress - Head Exam Head Exam: ATRAUMATIC, NORMAL INSPECTION - Eye Exam Eye Exam: EOMI - ENT Exam ENT Exam: Mucous Membranes Moist - Respiratory Exam Respiratory Exam: Clear to Ausculation Bilateral, NORMAL BREATHING PATTERN. absent: Rales, Rhonchi, Wheezes, Respiratory Distress - Cardiovascular Exam Cardiovascular Exam: Tachycardia, Irregular Rhythm, +S1, +S2 - GI/Abdominal Exam GI & Abdominal Exam: Soft, Normal Bowel Sounds. absent: Distended, Firm, Guarding, Tenderness - Exam Additional comments: Right groin- s/p cath; dressing in place, clean/dry/intact; no swelling or erythema noted. - Extremities Exam Extremities Exam: Normal Inspection. absent: Pedal Edema, Tenderness - Neurological Exam Neurological Exam: Alert, Awake, Oriented x3 - Psychiatric Exam Psychiatric exam: Normal Affect, Normal Mood - Skin Skin Exam: Dry, Normal Color, Warm Assessment and Plan - Assessment and Plan (Free Text) Plan: 73 year old male with PMHx A Fib, HTN, HLD who presents in A Fib with rapid ventricular response upon noting his pulse to be elevated following a morning workout. Patient placed on cardizem drip in ED admitted for inpatient ICU monitoring. A Fib - s/p cardiac cath on 07/31/18: Left heart normal, right heart examination not completed due to hypotension and tachycardia during procedure. Was started on neosynephrine and IVF for hypotension and an amiodarone drip. - Dr. Grigsby was consulted- per Dr. Grigsby, considering further intervention for PAF. Recommended to start Amiodarone 400mg BID for 1 week, then 200mg BID for 3 weeks. Recommended halfway anticoagulation to reduce CVA risk - CHADvasc score of 3 - Overnight, had 7 second pause. Amiodarone drip was titrated down and patient was started on cardizem. - Currently on cardizem 30mg PO Q8h HTN - Continue Hydralazine 50mg PO Q8h, Losartan 100mg PO daily *Dr. Irwin is patient's heading maker. Will transfer to Dr. Irwin's service. Case discussed with Leidy Neal, PGY2 <Rick Gamboa - Last Filed: 08/01/18 20:49> Objective - Vital Signs/Intake and Output Vital Signs (last 24 hours): Temp Pulse Resp BP Pulse Ox 97.9 F 79 13 124/68 98 08/01/18 16:00 08/01/18 19:19 08/01/18 19:19 08/01/18 19:19 08/01/18 19:19 Intake and Output: 08/01/18 08/02/18 18:59 06:59 Intake Total 718 0 Output Total 970 0 Balance -252 0 - Medications Medications: Current Medications Amiodarone HCl (Cordarone) 400 mg PO BID [facility] Last Admin: 08/01/18 18:01 Dose: 400 mg Enoxaparin Sodium (Lovenox) 60 mg SC Q12 [facility] Last Admin: 08/01/18 09:37 Dose: 60 mg Fluticasone Propionate (Flonase) 1 spr AMELIA DAILY [facility] Last Admin: 08/01/18 11:29 Dose: Not Given Hydralazine HCl (Apresoline) 50 mg PO Q8H [facility] Last Admin: 08/01/18 14:00 Dose: Not Given Loratadine (Claritin) 10 mg PO DAILY [facility] Last Admin: 08/01/18 11:28 Dose: Not Given Losartan Potassium (Cozaar) 100 mg PO DAILY [facility] Last Admin: 08/01/18 09:36 Dose: 100 mg Lmred-6-Xjii Ethyl Esters (Lovaza) 1 gm PO BID [facility] Last Admin: 08/01/18 17:58 Dose: 1 gm - Labs Labs: 08/01/18 06:04 08/01/18 06:04 PT 11.7 SECONDS (9.7-12.2) 07/29/18 13:16 INR 1.1 07/29/18 13:16 APTT 42.0 SECONDS (21-34) H 07/29/18 13:16 Assessment and Plan - Assessment and Plan (Free Text) Plan: Patient seen and evaluated personally by me. Plan d/w Dr. Grigsby (EP). Patient will be discharged tomorrow on PO Amiadorone for out patient ablation
[2018-08-01] MEDS ORDERED: Digoxin 250 mcg (0.25 mg) Tab PO ONE (11:00)
[2018-08-01] MEDS ORDERED: Metoprolol 1 mg/ml Inj IVP ONE (11:15)
[2018-08-01] MEDS: Omega-3-Acid Ethyl Esters 1 GM Cap PO SCH ×3 (11:25→17:58)
[2018-08-01] MEDS: Fluticasone Nasal 50 mcg/Spray NAS SCH (11:29)
--- NOTE | 2018-08-01 11:32 | CP.PCM.PN ---
Subjective - Date & Time of Evaluation Date of Evaluation: 08/01/18 Time of Evaluation: 09:00 - Subjective Subjective: Patient seen and examined. Overnight amiodarone drip was stopped secondary to pauses Now with a heart rate in 150s to 160s, patient started back on amnio drip and digoxin EPS follow-up Denies shortness of breath, denies cough, denies fever chills Consider sleep study as outpatient Objective - Vital Signs/Intake and Output Vital Signs (last 24 hours): Temp Pulse Resp BP Pulse Ox 98.2 F 74 15 98/40 L 98 08/01/18 04:00 08/01/18 07:21 08/01/18 07:21 08/01/18 07:21 08/01/18 07:21 Intake and Output: 08/01/18 08/01/18 06:59 18:59 Intake Total 366.8 180 Output Total 900 0 Balance -533.2 180 - Medications Medications: Current Medications Digoxin (Lanoxin) 0.25 mg PO Q6H [facility] Stop: 08/01/18 22:31 Diltiazem HCl (Cardizem) 30 mg PO QID [facility] Last Admin: 08/01/18 09:37 Dose: 30 mg Enoxaparin Sodium (Lovenox) 60 mg SC Q12 [facility] Last Admin: 08/01/18 09:37 Dose: 60 mg Fluticasone Propionate (Flonase) 1 spr AMELIA DAILY [facility] Last Admin: 08/01/18 11:29 Dose: Not Given Hydralazine HCl (Apresoline) 50 mg PO Q8H [facility] Last Admin: 08/01/18 06:05 Dose: 50 mg Amiodarone HCl 900 mg/ (Dextrose) 500 mls @ 33.33 mls/hr IV .Q15H1M ONE; Protocol Stop: 08/02/18 02:02 Loratadine (Claritin) 10 mg PO DAILY [facility] Last Admin: 08/01/18 11:28 Dose: Not Given Losartan Potassium (Cozaar) 100 mg PO DAILY [facility] Last Admin: 08/01/18 09:36 Dose: 100 mg Jfysp-4-Ogvc Ethyl Esters (Lovaza) 1 gm PO BID [facility] Last Admin: 08/01/18 11:25 Dose: 1 gm - Labs Labs: 08/01/18 06:04 08/01/18 06:04 PT 11.7 SECONDS (9.7-12.2) 07/29/18 13:16 INR 1.1 07/29/18 13:16 APTT 42.0 SECONDS (21-34) H 07/29/18 13:16 - Head Exam Head Exam: ATRAUMATIC, NORMOCEPHALIC - ENT Exam ENT Exam: Mucous Membranes Moist - Neck Exam Neck Exam: Normal Inspection - Respiratory Exam Respiratory Exam: Clear to Ausculation Bilateral - Cardiovascular Exam Cardiovascular Exam: Tachycardia - GI/Abdominal Exam GI & Abdominal Exam: Soft, Normal Bowel Sounds Assessment and Plan (1) Pulmonary hypertension Assessment & Plan: Outpatient work-up Controlled heart rate EPS evaluation Status: Acute (2) Atrial fibrillation Status: Chronic
--- NOTE | 2018-08-01 13:55 | CP.CCUPN ---
<Kirill De La Cruz - Last Filed: 08/01/18 14:07> CCU Subjective - Physician Review Subjective (Free Text): 07/30/18 10:51 PGY-1 Critical Care Progress Note for Dr. Howe Patient seen and examined at bedside. Patient was in rapid A fib on monitor this morning. Patient also had 7 second pause overnight and amio drip was stopped. Patient seen and evaluated by cardio and EP and now is back on amio and receiving dig PO x3. Now normal sinus on monitor and patient asymptomatic. CCU Objective - Vital Signs / Intake & Output Vital Signs (Last 4 hours): Vital Signs Temp Pulse Resp BP Pulse Ox 08/01/18 13:00 62 15 99 08/01/18 12:20 67 12 102/52 L 99 08/01/18 12:00 97.5 F L 67 12 98 08/01/18 11:20 123 H 16 121/68 98 08/01/18 11:18 114 H 17 112/67 98 08/01/18 11:00 153 H 16 141/68 98 08/01/18 10:22 128 H 17 106/64 98 08/01/18 10:00 146 H 15 98 Intake and Output (Last 8hrs): Intake & Output 07/31/18 08/01/18 08/01/18 22:59 06:59 14:59 Intake Total 946.8 100 663 Output Total 250 900 350 Balance 696.8 -800 313 Weight 160 lb Intake: Intake, IV Amount 266.8 33 Left Wrist 100 Right Antecubital 166.8 33 Oral 680 100 630 Output: Urine 250 900 350 Urine, Voided 250 900 350 Other: # Voids Urine, Voided 1 1 - Physical Exam Head: Positive for: Atraumatic, Normocephalic Pupils: Positive for: PERRL Extroacular Muscles: Positive for: EOMI Mouth: Positive for: Moist Mucous Membranes Respiratory/Chest: Positive for: Clear to Auscultation. Negative for: Accessory Muscle Use, Wheezes, Rales Cardiovascular: Positive for: Regular Rate and Rhythm, Normal S1, S2 Abdomen: Negative for: Tenderness, Distention Neurological: Positive for: GCS=15, CN II-XII Intact Skin: Positive for: Dry, Normal Color Psychiatric: Positive for: Alert, Oriented x 3 - Medications Active Medications: Active Medications Generic Name Dose Route Start Last Admin Trade Name Freq PRN Reason Stop Dose Admin Amiodarone HCl 400 mg 08/01/18 13:00 08/01/18 13:14 Cordarone PO 400 mg BID KASIE Administration Enoxaparin Sodium 60 mg 07/30/18 10:00 08/01/18 09:37 Lovenox SC 60 mg Q12 KASIE Administration Fluticasone Propionate 1 spr 07/30/18 10:00 08/01/18 11:29 Flonase AMELIA Not Given DAILY KASIE Hydralazine HCl 50 mg 07/30/18 22:00 08/01/18 06:05 Apresoline PO 50 mg Q8H KASIE Administration Amiodarone HCl 900 mg/ 500 mls @ 33.33 mls/hr 08/01/18 12:30 08/01/18 11:00 Dextrose IV 08/02/18 03:30 33.33 mls/hr .Q15H1M ONE Administration Protocol 1 MG/MIN Loratadine 10 mg 07/30/18 10:00 08/01/18 11:28 Claritin PO Not Given DAILY KASIE Losartan Potassium 100 mg 07/30/18 10:00 08/01/18 09:36 Cozaar PO 100 mg DAILY KASIE Administration Wpizr-3-Kpfv Ethyl Esters 1 gm 07/30/18 18:15 08/01/18 11:25 Lovaza PO 1 gm BID KASIE Administration - Patient Studies Lab Studies: Lab Studies 08/01/18 08/01/18 Range/Units 06:04 06:04 WBC 8.4 (4.8-10.8) K/uL RBC 4.89 (4.40-5.90) Mil/uL Hgb 15.2 (12.0-18.0) g/dL Hct 44.6 (35.0-51.0) % MCV 91.2 (80.0-94.0) fL MCH 31.0 (27.0-31.0) pg MCHC 34.0 (33.0-37.0) g/dL RDW 12.9 (11.5-14.5) % Plt Count 268 (130-400) K/uL MPV 6.9 L (7.2-11.7) fL Neut % (Auto) 63.6 (50.0-75.0) % Lymph % (Auto) 21.5 (20.0-40.0) % [place] % (Auto) 13.6 H (0.0-10.0) % Eos % (Auto) 0.6 (0.0-4.0) % Baso % (Auto) 0.7 (0.0-2.0) % Neut # (Auto) 5.3 (1.8-7.0) K/uL Lymph # (Auto) 1.8 (1.0-4.3) K/uL [place] # (Auto) 1.1 H (0.0-0.8) K/uL Eos # (Auto) 0.0 (0.0-0.7) K/uL Baso # (Auto) 0.1 (0.0-0.2) K/uL Sodium 127 L (132-148) mmol/L Potassium 4.5 (3.6-5.2) mmol/L Chloride 93 L (98-107) mmol/L Carbon Dioxide 27 (22-30) mmol/L Anion Gap 11 (10-20) BUN 14 (9-20) mg/dL Creatinine 1.1 (0.8-1.5) mg/dL Est GFR ( Amer) > 60 Est GFR (Non-Af Amer) > 60 Random Glucose 104 (75-110) mg/dL Calcium 9.1 (8.6-10.4) mg/dl Phosphorus 3.4 (2.5-4.5) mg/dL Magnesium 1.9 (1.6-2.3) mg/dL Total Bilirubin 1.7 H (0.2-1.3) mg/dL AST 35 (17-59) U/L ALT 17 L D (21-72) U/L Alkaline Phosphatase 70 (38-126) U/L Total Protein 7.1 (6.3-8.3) g/dL Albumin 4.3 (3.5-5.0) g/dL Globulin 2.8 (2.2-3.9) gm/dL Albumin/Globulin Ratio 1.6 (1.0-2.1) Triglycerides 149 (0-149) mg/dL Cholesterol 179 (0-199) mg/dL LDL Cholesterol Direct 118 (0-129) mg/dL HDL Cholesterol 48 (30-70) mg/dL Laboratory Results - last 24 hr 08/01/18 08/01/18 06:04 06:04 WBC 8.4 RBC 4.89 Hgb 15.2 Hct 44.6 MCV 91.2 MCH 31.0 MCHC 34.0 RDW 12.9 Plt Count 268 MPV 6.9 L Neut % (Auto) 63.6 Lymph % (Auto) 21.5 [place] % (Auto) 13.6 H Eos % (Auto) 0.6 Baso % (Auto) 0.7 Neut # (Auto) 5.3 Lymph # (Auto) 1.8 [place] # (Auto) 1.1 H Eos # (Auto) 0.0 Baso # (Auto) 0.1 Sodium 127 L Potassium 4.5 Chloride 93 L Carbon Dioxide 27 Anion Gap 11 BUN 14 Creatinine 1.1 Est GFR ( Amer) > 60 Est GFR (Non-Af Amer) > 60 Random Glucose 104 Calcium 9.1 Phosphorus 3.4 Magnesium 1.9 Total Bilirubin 1.7 H AST 35 ALT 17 L D Alkaline Phosphatase 70 Total Protein 7.1 Albumin 4.3 Globulin 2.8 Albumin/Globulin Ratio 1.6 Triglycerides 149 Cholesterol 179 LDL Cholesterol Direct 118 HDL Cholesterol 48 Review of Systems - Review of Systems All systems: reviewed and no additional remarkable complaints except Critical Care Progress Note - Nutrition Nutrition: Nutrition Category Date Time Status Heart Healthy Diet [DIET] Diets 07/31/18 Lunch Active Assessment/Plan - Assessment and Plan (Free Text) Assessment: 73 year old male with PMHx A Fib, HTN, HLD who presents in A Fib with rapid ventricular response upon noting his pulse to be elevated following a morning workout. Patient placed on cardizem drip in ED admitted for inpatient ICU monitoring. A fib which has been refractory to med treatment, Plan Cardio Refractory A Fib -EKG on admission - sinus tach HR 130s, a fib on cadiac monitor -ICU cardiac monitoring -Cardizem ggt d/c'd -Heparin ggt d/c'd --> Lovenox 60 mg SC Q12 -Amio ggt --> bridged to PO -JAZLYN Ashley on consult --Patient is a possible candidate for ablation, however patient would prefer to first try medical management --Amiodarone 400mg BID for 1 week, then 200mg BID for 3 weeks --Patient will require lifelong AC with CHADS2 of 3 -Meds --Lovenox 60 mg SC Q12 --Amiodarone 400 mg PO BID HTN --Hydralazine 50 mg PO Q8 --Losartan 100 mg PO daily Hypertriglyceridemia -[place] 2 FA Esters BID Pulm -Saturating well on room air -Maintain spO2 above 92% Neuro -A and O x3 PPx -Loveonx 60 mg SC Q12 Assessment and plan d/w Dr. Carley De La Cruz, PGY-1 <Huang Howe - Last Filed: 08/01/18 15:42> CCU Objective - Vital Signs / Intake & Output Vital Signs (Last 4 hours): Vital Signs Temp Pulse Resp BP Pulse Ox 08/01/18 13:00 62 15 99 08/01/18 12:20 67 12 102/52 L 99 08/01/18 12:00 97.5 F L 67 12 98 Intake and Output (Last 8hrs): Intake & Output 08/01/18 08/01/18 08/01/18 06:59 14:59 22:59 Intake Total 100 663 Output Total 900 350 Balance -800 313 Weight 160 lb Intake: Intake, IV Amount 33 Right Antecubital 33 Oral 100 630 Output: Urine 900 350 Urine, Voided 900 350 Other: # Voids Urine, Voided 1 - Medications Active Medications: Active Medications Generic Name Dose Route Start Last Admin Trade Name Freq PRN Reason Stop Dose Admin Amiodarone HCl 400 mg 08/01/18 13:00 08/01/18 13:14 Cordarone PO 400 mg BID KASIE Administration Enoxaparin Sodium 60 mg 07/30/18 10:00 08/01/18 09:37 Lovenox SC 60 mg Q12 KASIE Administration Fluticasone Propionate 1 spr 07/30/18 10:00 08/01/18 11:29 Flonase AMELIA Not Given DAILY KASIE Hydralazine HCl 50 mg 07/30/18 22:00 08/01/18 06:05 Apresoline PO 50 mg Q8H KASIE Administration Amiodarone HCl 900 mg/ 500 mls @ 33.33 mls/hr 08/01/18 12:30 08/01/18 11:00 Dextrose IV 08/02/18 03:30 33.33 mls/hr .Q15H1M ONE Administration Protocol 1 MG/MIN Loratadine 10 mg 07/30/18 10:00 08/01/18 11:28 Claritin PO Not Given DAILY KASIE Losartan Potassium 100 mg 07/30/18 10:00 08/01/18 09:36 Cozaar PO 100 mg DAILY KASIE Administration Hhpbz-9-Clow Ethyl Esters 1 gm 07/30/18 18:15 08/01/18 11:25 Lovaza PO 1 gm BID KASIE Administration - Patient Studies Lab Studies: Lab Studies 08/01/18 08/01/18 Range/Units 06:04 06:04 WBC 8.4 (4.8-10.8) K/uL RBC 4.89 (4.40-5.90) Mil/uL Hgb 15.2 (12.0-18.0) g/dL Hct 44.6 (35.0-51.0) % MCV 91.2 (80.0-94.0) fL MCH 31.0 (27.0-31.0) pg MCHC 34.0 (33.0-37.0) g/dL RDW 12.9 (11.5-14.5) % Plt Count 268 (130-400) K/uL MPV 6.9 L (7.2-11.7) fL Neut % (Auto) 63.6 (50.0-75.0) % Lymph % (Auto) 21.5 (20.0-40.0) % [place] % (Auto) 13.6 H (0.0-10.0) % Eos % (Auto) 0.6 (0.0-4.0) % Baso % (Auto) 0.7 (0.0-2.0) % Neut # (Auto) 5.3 (1.8-7.0) K/uL Lymph # (Auto) 1.8 (1.0-4.3) K/uL [place] # (Auto) 1.1 H (0.0-0.8) K/uL Eos # (Auto) 0.0 (0.0-0.7) K/uL Baso # (Auto) 0.1 (0.0-0.2) K/uL Sodium 127 L (132-148) mmol/L Potassium 4.5 (3.6-5.2) mmol/L Chloride 93 L (98-107) mmol/L Carbon Dioxide 27 (22-30) mmol/L Anion Gap 11 (10-20) BUN 14 (9-20) mg/dL Creatinine 1.1 (0.8-1.5) mg/dL Est GFR ( Amer) > 60 Est GFR (Non-Af Amer) > 60 Random Glucose 104 (75-110) mg/dL Calcium 9.1 (8.6-10.4) mg/dl Phosphorus 3.4 (2.5-4.5) mg/dL Magnesium 1.9 (1.6-2.3) mg/dL Total Bilirubin 1.7 H (0.2-1.3) mg/dL AST 35 (17-59) U/L ALT 17 L D (21-72) U/L Alkaline Phosphatase 70 (38-126) U/L Total Protein 7.1 (6.3-8.3) g/dL Albumin 4.3 (3.5-5.0) g/dL Globulin 2.8 (2.2-3.9) gm/dL Albumin/Globulin Ratio 1.6 (1.0-2.1) Triglycerides 149 (0-149) mg/dL Cholesterol 179 (0-199) mg/dL LDL Cholesterol Direct 118 (0-129) mg/dL HDL Cholesterol 48 (30-70) mg/dL Laboratory Results - last 24 hr 08/01/18 08/01/18 06:04 06:04 WBC 8.4 RBC 4.89 Hgb 15.2 Hct 44.6 MCV 91.2 MCH 31.0 MCHC 34.0 RDW 12.9 Plt Count 268 MPV 6.9 L Neut % (Auto) 63.6 Lymph % (Auto) 21.5 [place] % (Auto) 13.6 H Eos % (Auto) 0.6 Baso % (Auto) 0.7 Neut # (Auto) 5.3 Lymph # (Auto) 1.8 [place] # (Auto) 1.1 H Eos # (Auto) 0.0 Baso # (Auto) 0.1 Sodium 127 L Potassium 4.5 Chloride 93 L Carbon Dioxide 27 Anion Gap 11 BUN 14 Creatinine 1.1 Est GFR ( Amer) > 60 Est GFR (Non-Af Amer) > 60 Random Glucose 104 Calcium 9.1 Phosphorus 3.4 Magnesium 1.9 Total Bilirubin 1.7 H AST 35 ALT 17 L D Alkaline Phosphatase 70 Total Protein 7.1 Albumin 4.3 Globulin 2.8 Albumin/Globulin Ratio 1.6 Triglycerides 149 Cholesterol 179 LDL Cholesterol Direct 118 HDL Cholesterol 48 Critical Care Progress Note - Nutrition Nutrition: Nutrition Category Date Time Status Heart Healthy Diet [DIET] Diets 07/31/18 Lunch Active Attending/Attestation - Attestation I have personally seen and examined this patient.: Yes I have fully participated in the care of the patient.: Yes I have reviewed all pertinent clinical information: Yes Notes (Text): 08/01/18 15:22 I have seen and examined the patient. Medical records, lab studies, and imaging were reviewed by me and a management plan was formulated on multidisciplinary rounds with resident Dr. De La Cruz. I agree with their documented assessment and plan. Patient in recurrent afib once amiodarone drip d/c'd, restarted and patient now in sinus, continue oral amiodarone. Patient will eventually go for outpatient ablation. Amiodarone not a good residential solution given patient already has moderate to severe pulmonary hypertension. Dr. Grigsby - EPS, Dr. Gamboa - cardiology following. Critical Care Time 35 minutes. Multi-disciplinary rounds were performed with house staff, nursing, speech therapy, respiratory therapy, pharmacy and nutrition with integrated input from the primary team/attending and other consulting services. The documented time is cumulative and includes review of patient data/exams/labs/chart review and examination of the patient on rounds and throughout the day; time is exclusive of any procedures or teaching time.
--- NOTE | 2018-08-01 15:22 | CP.CCUPN ---
CCU Objective - Vital Signs / Intake & Output Vital Signs (Last 4 hours): Vital Signs Temp Pulse Resp BP Pulse Ox 08/01/18 13:00 62 15 99 08/01/18 12:20 67 12 102/52 L 99 08/01/18 12:00 97.5 F L 67 12 98 Intake and Output (Last 8hrs): Intake & Output 08/01/18 08/01/18 08/01/18 06:59 14:59 22:59 Intake Total 100 663 Output Total 900 350 Balance -800 313 Weight 160 lb Intake: Intake, IV Amount 33 Right Antecubital 33 Oral 100 630 Output: Urine 900 350 Urine, Voided 900 350 Other: # Voids Urine, Voided 1 - Physical Exam Head: Positive for: Atraumatic, Normocephalic Pupils: Positive for: PERRL Extroacular Muscles: Positive for: EOMI Mouth: Positive for: Moist Mucous Membranes Respiratory/Chest: Positive for: Clear to Auscultation. Negative for: Accessory Muscle Use, Wheezes, Rales Cardiovascular: Positive for: Regular Rate and Rhythm, Normal S1, S2 Abdomen: Negative for: Tenderness, Distention Neurological: Positive for: GCS=15, CN II-XII Intact Skin: Positive for: Dry, Normal Color Psychiatric: Positive for: Alert, Oriented x 3 - Medications Active Medications: Active Medications Generic Name Dose Route Start Last Admin Trade Name Freq PRN Reason Stop Dose Admin Amiodarone HCl 400 mg 08/01/18 13:00 08/01/18 13:14 Cordarone PO 400 mg BID KASIE Administration Enoxaparin Sodium 60 mg 07/30/18 10:00 08/01/18 09:37 Lovenox SC 60 mg Q12 KASIE Administration Fluticasone Propionate 1 spr 07/30/18 10:00 08/01/18 11:29 Flonase AMELIA Not Given DAILY KASIE Hydralazine HCl 50 mg 07/30/18 22:00 08/01/18 06:05 Apresoline PO 50 mg Q8H KASIE Administration Amiodarone HCl 900 mg/ 500 mls @ 33.33 mls/hr 08/01/18 12:30 08/01/18 11:00 Dextrose IV 08/02/18 03:30 33.33 mls/hr .Q15H1M ONE Administration Protocol 1 MG/MIN Loratadine 10 mg 07/30/18 10:00 08/01/18 11:28 Claritin PO Not Given DAILY KASIE Losartan Potassium 100 mg 07/30/18 10:00 08/01/18 09:36 Cozaar PO 100 mg DAILY KASIE Administration Qdjok-7-Dvpe Ethyl Esters 1 gm 07/30/18 18:15 08/01/18 11:25 Lovaza PO 1 gm BID KASIE Administration - Patient Studies Lab Studies: Lab Studies 08/01/18 08/01/18 Range/Units 06:04 06:04 WBC 8.4 (4.8-10.8) K/uL RBC 4.89 (4.40-5.90) Mil/uL Hgb 15.2 (12.0-18.0) g/dL Hct 44.6 (35.0-51.0) % MCV 91.2 (80.0-94.0) fL MCH 31.0 (27.0-31.0) pg MCHC 34.0 (33.0-37.0) g/dL RDW 12.9 (11.5-14.5) % Plt Count 268 (130-400) K/uL MPV 6.9 L (7.2-11.7) fL Neut % (Auto) 63.6 (50.0-75.0) % Lymph % (Auto) 21.5 (20.0-40.0) % [place] % (Auto) 13.6 H (0.0-10.0) % Eos % (Auto) 0.6 (0.0-4.0) % Baso % (Auto) 0.7 (0.0-2.0) % Neut # (Auto) 5.3 (1.8-7.0) K/uL Lymph # (Auto) 1.8 (1.0-4.3) K/uL [place] # (Auto) 1.1 H (0.0-0.8) K/uL Eos # (Auto) 0.0 (0.0-0.7) K/uL Baso # (Auto) 0.1 (0.0-0.2) K/uL Sodium 127 L (132-148) mmol/L Potassium 4.5 (3.6-5.2) mmol/L Chloride 93 L (98-107) mmol/L Carbon Dioxide 27 (22-30) mmol/L Anion Gap 11 (10-20) BUN 14 (9-20) mg/dL Creatinine 1.1 (0.8-1.5) mg/dL Est GFR ( Amer) > 60 Est GFR (Non-Af Amer) > 60 Random Glucose 104 (75-110) mg/dL Calcium 9.1 (8.6-10.4) mg/dl Phosphorus 3.4 (2.5-4.5) mg/dL Magnesium 1.9 (1.6-2.3) mg/dL Total Bilirubin 1.7 H (0.2-1.3) mg/dL AST 35 (17-59) U/L ALT 17 L D (21-72) U/L Alkaline Phosphatase 70 (38-126) U/L Total Protein 7.1 (6.3-8.3) g/dL Albumin 4.3 (3.5-5.0) g/dL Globulin 2.8 (2.2-3.9) gm/dL Albumin/Globulin Ratio 1.6 (1.0-2.1) Triglycerides 149 (0-149) mg/dL Cholesterol 179 (0-199) mg/dL LDL Cholesterol Direct 118 (0-129) mg/dL HDL Cholesterol 48 (30-70) mg/dL Laboratory Results - last 24 hr 08/01/18 08/01/18 06:04 06:04 WBC 8.4 RBC 4.89 Hgb 15.2 Hct 44.6 MCV 91.2 MCH 31.0 MCHC 34.0 RDW 12.9 Plt Count 268 MPV 6.9 L Neut % (Auto) 63.6 Lymph % (Auto) 21.5 [place] % (Auto) 13.6 H Eos % (Auto) 0.6 Baso % (Auto) 0.7 Neut # (Auto) 5.3 Lymph # (Auto) 1.8 [place] # (Auto) 1.1 H Eos # (Auto) 0.0 Baso # (Auto) 0.1 Sodium 127 L Potassium 4.5 Chloride 93 L Carbon Dioxide 27 Anion Gap 11 BUN 14 Creatinine 1.1 Est GFR ( Amer) > 60 Est GFR (Non-Af Amer) > 60 Random Glucose 104 Calcium 9.1 Phosphorus 3.4 Magnesium 1.9 Total Bilirubin 1.7 H AST 35 ALT 17 L D Alkaline Phosphatase 70 Total Protein 7.1 Albumin 4.3 Globulin 2.8 Albumin/Globulin Ratio 1.6 Triglycerides 149 Cholesterol 179 LDL Cholesterol Direct 118 HDL Cholesterol 48 Critical Care Progress Note - Nutrition Nutrition: Nutrition Category Date Time Status Heart Healthy Diet [DIET] Diets 07/31/18 Lunch Active Attending/Attestation - Attestation I have personally seen and examined this patient.: Yes I have fully participated in the care of the patient.: Yes I have reviewed all pertinent clinical information: Yes
[2018-08-01] MEDS ORDERED: Iodixanol 320 MG/ML 100 ML BOTTLE IV ONE (15:49)
[2018-08-01] MEDS ORDERED: Digoxin 250 mcg (0.25 mg) Tab PO SCH (16:30)
--- NOTE | 2018-08-01 16:45 | CT ---
PROCEDURE: CT Angiography Chest, Abdomen and Pelvis with intravenous contrast HISTORY: r/o aortic aneurysm COMPARISON: CT abdomen/pelvis 03/08/2014 TECHNIQUE: Contiguous axial images of the chest, abdomen and pelvis were obtained in the phase of aortic enhancement. A noncontrast enhanced CT of the chest was also obtained to evaluate for possible intramural thrombus. Coronal and sagittal reformats were generated. IV dose administered: 100 mL Visipaque 320 Radiation dose: Total exam DLP = 1060.68 mGy-cm. This CT exam was performed using one or more of the following dose reduction techniques: Automated exposure control, adjustment of the mA and/or kV according to patient size, and/or use of iterative reconstruction technique. FINDINGS: CT ANGIOGRAPHY OF THE CHEST WITH & WITHOUT CONTRAST: AORTA (CHEST AND ABDOMEN): The thoracic and abdominal aorta are unremarkable, without aneurysm, dissection or rupture. The celiac axis, superior mesenteric artery, inferior mesenteric artery and the renal arteries are widely patent. The pelvic arteries are unremarkable. LUNGS: Irregular pleural thickening at the right apex measuring approximately 2.9 cm in greatest dimension, and up to 10 mm in thickness. This may represent focal pleural scar or neoplasm. Consider further evaluation with PET-CT scan. No other pulmonary mass is identified. There is no pulmonary infiltrate. MEDIASTINUM: Unremarkable. Normal caliber aorta and pulmonary arterial trunk. No aortic dissection. Normal size heart. LYMPH NODES: Unremarkable. PLEURA: No pleural effusion or pneumothorax. BONES: Unremarkable. OTHER FINDINGS: None. CT ANGIOGRAPHY OF THE ABDOMEN AND PELVIS WITH CONTRAST: LIVER: Unremarkable. No gross lesion or ductal dilatation. GALLBLADDER AND BILE DUCTS: Status post cholecystectomy. PANCREAS: Unremarkable. No gross lesion or ductal dilatation. SPLEEN: Unremarkable. ADRENALS: Unremarkable. No mass. KIDNEYS AND URETERS: Left upper pole renal cortical cyst, 2.5 cm. This measures 12 Hounsfield units. On prior examination, this measured 2.4 cm. No other renal mass. No calculus or hydronephrosis. VASCULATURE: Unremarkable. No aortic aneurysm. No aortic atherosclerotic calcification or mural plaque present. STOMACH AND BOWEL: Unremarkable. No obstruction. No gross mural thickening. APPENDIX: Not identified. No secondary findings. PERITONEUM: Unremarkable. No free fluid. No free air. LYMPH NODES: Unremarkable. No enlarged lymph nodes. BLADDER: Unremarkable REPRODUCTIVE: Mild prostate enlargement BONES: No acute fracture. OTHER FINDINGS: None. IMPRESSION: No evidence of thoracic or abdominal aortic aneurysm. Focal irregular pleural thickening in the right lung apex. Consider further evaluation with PET-CT scan. Additional nonacute findings as above.
[2018-08-01 17:41] VITALS: PULSE 77
--- NOTE | 2018-08-01 19:40 | CP.PCM.PN ---
Subjective - Date & Time of Evaluation Date of Evaluation: 08/01/18 Time of Evaluation: 19:30 - Subjective Subjective: EP follow-up of AF. Had rapid AF for a few hours this morning. Has started his amiodarone 400 mg BID. Has remained in SR since about 1:30 this afternoon. Since converting to SR no sig palpitations of any duration located in chest. No associated dizziness. No other modifying factors. Objective - Vital Signs/Intake and Output Vital Signs (last 24 hours): Temp Pulse Resp BP Pulse Ox 97.9 F 69 14 144/74 99 08/01/18 16:00 08/01/18 17:00 08/01/18 17:00 08/01/18 16:19 08/01/18 16:19 Intake and Output: 08/01/18 08/02/18 18:59 06:59 Intake Total 707 Output Total 620 Balance 87 - Medications Medications: Current Medications Amiodarone HCl (Cordarone) 400 mg PO BID [facility] Last Admin: 08/01/18 18:01 Dose: 400 mg Enoxaparin Sodium (Lovenox) 60 mg SC Q12 [facility] Last Admin: 08/01/18 09:37 Dose: 60 mg Fluticasone Propionate (Flonase) 1 spr AMELIA DAILY [facility] Last Admin: 08/01/18 11:29 Dose: Not Given Hydralazine HCl (Apresoline) 50 mg PO Q8H [facility] Last Admin: 08/01/18 14:00 Dose: Not Given Loratadine (Claritin) 10 mg PO DAILY [facility] Last Admin: 08/01/18 11:28 Dose: Not Given Losartan Potassium (Cozaar) 100 mg PO DAILY [facility] Last Admin: 08/01/18 09:36 Dose: 100 mg Lvhvm-3-Cett Ethyl Esters (Lovaza) 1 gm PO BID [facility] Last Admin: 08/01/18 17:58 Dose: 1 gm - Labs Labs: 08/01/18 06:04 08/01/18 06:04 PT 11.7 SECONDS (9.7-12.2) 07/29/18 13:16 INR 1.1 07/29/18 13:16 APTT 42.0 SECONDS (21-34) H 07/29/18 13:16 - Constitutional Appears: Well, Non-toxic - Head Exam Head Exam: NORMAL INSPECTION, NORMOCEPHALIC - Eye Exam Eye Exam: EOMI, Normal appearance, PERRL - ENT Exam ENT Exam: Mucous Membranes Moist, Normal Exam - Cardiovascular Exam Cardiovascular Exam: REGULAR RHYTHM - GI/Abdominal Exam GI & Abdominal Exam: Normal Bowel Sounds - Extremities Exam Extremities Exam: Normal Inspection. absent: Pedal Edema - Neurological Exam Neurological Exam: Alert, Awake, CN II-XII Intact - Skin Skin Exam: Dry, Warm Assessment and Plan - Assessment and Plan (Free Text) Assessment: 73 yo man with history of PAF previously on low dose sotalol. Has sinus bradycardia which has limited sotalol use. PAF: continue amiodarone 400mg bid one week and then 200 mg bid one week (that is a prescription of 70 x 200 mg pills). Afterwards suggest one pill daily. I will schedule outpatient ablation as amiodarone is a suboptimal long-term medication in this patient with pulmonary HTN. Continue antiocagulation to reduce CVA risk. Dispo: anticipate he will be able to go home tomorrow.
--- NOTE | 2018-08-01 23:09 | CP.PCM.PN ---
Subjective - Date & Time of Evaluation Date of Evaluation: 08/01/18 Time of Evaluation: 08:00 - Subjective Subjective: dict Objective - Vital Signs/Intake and Output Vital Signs (last 24 hours): Temp Pulse Resp BP Pulse Ox 98.5 F 67 18 125/65 98 08/01/18 20:00 08/01/18 20:20 08/01/18 20:20 08/01/18 20:20 08/01/18 20:20 Intake and Output: 08/01/18 08/02/18 18:59 06:59 Intake Total 718 0 Output Total 970 0 Balance -252 0 - Medications Medications: Current Medications Amiodarone HCl (Cordarone) 400 mg PO BID [facility] Last Admin: 08/01/18 18:01 Dose: 400 mg Enoxaparin Sodium (Lovenox) 60 mg SC Q12 [facility] Last Admin: 08/01/18 22:08 Dose: 60 mg Fluticasone Propionate (Flonase) 1 spr AMELIA DAILY [facility] Last Admin: 08/01/18 11:29 Dose: Not Given Hydralazine HCl (Apresoline) 50 mg PO Q8H [facility] Last Admin: 08/01/18 22:09 Dose: 50 mg Loratadine (Claritin) 10 mg PO DAILY [facility] Last Admin: 08/01/18 11:28 Dose: Not Given Losartan Potassium (Cozaar) 100 mg PO DAILY [facility] Last Admin: 08/01/18 09:36 Dose: 100 mg Yjlwa-8-Vgsn Ethyl Esters (Lovaza) 1 gm PO BID [facility] Last Admin: 08/01/18 17:58 Dose: 1 gm - Labs Labs: 08/01/18 06:04 08/01/18 06:04 PT 11.7 SECONDS (9.7-12.2) 07/29/18 13:16 INR 1.1 07/29/18 13:16 APTT 42.0 SECONDS (21-34) H 07/29/18 13:16
--- NOTE | 2018-08-02 02:01 | PN ---
DATE: 08/02/2018 SUBJECTIVE: The patient was seen by Electrophysiology and the patient has undergone CT of the chest, abdomen, and pelvis. The patient is status post cath and his left coronaries are normal. Echocardiogram is negative. The patient has focal irregular pleural thickening in the right lung apex. Other than that, the patient has non-acute findings in the CT of the chest. He denies any shortness of breath. No history of weight loss. No cough. No fever. PHYSICAL EXAMINATION: VITAL SIGNS: Blood pressure is 125/65, pulse 67, respiratory rate 18, and temperature 98.5. LUNGS: Clear. CARDIOVASCULAR SYSTEM: S1 and S2. Irregularly irregular. ABDOMEN: Soft and nontender. Bowel sounds are positive. ASSESSMENT: 1. Atrial fibrillation with slight flutter with rapid ventricular response. 2. Hyponatremia. 3. Hypertension. 4. Rule out hyperlipidemia. PLAN: Continue current medications. Follow up with Electrophysiology. Monitor the patient. Darius Soto MD
[2018-08-02 06:35] LABS: BASO % 0.3 % (0.0-2.0); EOS # 0.1 K/uL (0.0-0.7); EOS % 0.8 % (0.0-4.0); HEMOGLOBIN 15.2 g/dL (12.0-18.0); LYMPH # 1.3 K/uL (1.0-4.3); LYMPH % 12.6 % (20.0-40.0); MEAN CELL VOLUME 91.8 fL (80.0-94.0); MEAN CORPUSCULAR HEMOGLOBIN 30.9 pg (27.0-31.0); MEAN CORPUSCULAR HGB CONC 33.7 g/dL (33.0-37.0); MEAN PLATELET VOLUME 7.5 fL (7.2-11.7); MONO # 0.6 K/uL (0.0-0.8); MONO % 6.1 % (0.0-10.0); NEUT % 80.2 % (50.0-75.0); RBC 4.91 Mil/uL (4.40-5.90); RED CELL DISTRIBUTION WIDTH 12.8 % (11.5-14.5); WHITE BLOOD COUNT 9.9 K/uL (4.8-10.8)
[2018-08-02 06:50] LABS: ALB/GLOB RATIO 1.4 (1.0-2.1); ALBUMIN 4.5 g/dL (3.5-5.0); ALT/SGPT 52 U/L (21-72); AST/SGOT 106 U/L (17-59); BLOOD UREA NITROGEN 16 mg/dL (9-20); CALCIUM 9.3 mg/dl (8.6-10.4); GFR NON-AFRICAN AMERICAN 60
--- NOTE | 2018-08-02 09:01 | CP.PCM.PN ---
Subjective - Date & Time of Evaluation Date of Evaluation: 08/02/18 Time of Evaluation: 08:00 - Subjective Subjective: Patient seen and examined Sitting comfortably in no distress On amiodarone 400 mg twice daily Possible ambulation Consider sleep study as outpatient Objective - Vital Signs/Intake and Output Vital Signs (last 24 hours): Temp Pulse Resp BP Pulse Ox 97.8 F 63 13 123/60 97 08/02/18 04:00 08/02/18 06:00 08/02/18 06:00 08/02/18 06:00 08/02/18 06:00 Intake and Output: 08/02/18 08/02/18 06:59 18:59 Intake Total 300 Output Total 1100 Balance -800 - Medications Medications: Current Medications Amiodarone HCl (Cordarone) 400 mg PO BID [facility] Last Admin: 08/01/18 18:01 Dose: 400 mg Enoxaparin Sodium (Lovenox) 60 mg SC Q12 [facility] Last Admin: 08/01/18 22:08 Dose: 60 mg Fluticasone Propionate (Flonase) 1 spr AMELIA DAILY [facility] Last Admin: 08/01/18 11:29 Dose: Not Given Hydralazine HCl (Apresoline) 50 mg PO Q8H [facility] Last Admin: 08/02/18 06:45 Dose: 50 mg Loratadine (Claritin) 10 mg PO DAILY [facility] Last Admin: 08/01/18 11:28 Dose: Not Given Losartan Potassium (Cozaar) 100 mg PO DAILY [facility] Last Admin: 08/01/18 09:36 Dose: 100 mg [id number]-[id number] Ethyl Esters (Lovaza) 1 gm PO BID [facility] Last Admin: 08/01/18 17:58 Dose: 1 gm - Labs Labs: 08/02/18 06:27 08/02/18 06:27 PT 11.7 SECONDS (9.7-12.2) 07/29/18 13:16 INR 1.1 07/29/18 13:16 APTT 42.0 SECONDS (21-34) H 07/29/18 13:16 Assessment and Plan (1) Pulmonary hypertension Status: Acute (2) Atrial fibrillation Status: Chronic
--- NOTE | 2018-08-02 09:10 | CP.PCM.PN ---
Subjective - Date & Time of Evaluation Date of Evaluation: 08/02/18 Time of Evaluation: 09:00 - Subjective Subjective: Patient seen today sitting up in chair, denies any chest pain, dizziness, sob, palpitations No overnight events recorded on monitor as pe rRN vss stable - HR - controlled Objective - Vital Signs/Intake and Output Vital Signs (last 24 hours): Temp Pulse Resp BP Pulse Ox 97.8 F 63 13 123/60 97 08/02/18 04:00 08/02/18 06:00 08/02/18 06:00 08/02/18 06:00 08/02/18 06:00 Intake and Output: 08/02/18 08/02/18 06:59 18:59 Intake Total 300 Output Total 1100 Balance -800 - Medications Medications: Current Medications Amiodarone HCl (Cordarone) 400 mg PO BID [facility] Last Admin: 08/01/18 18:01 Dose: 400 mg Enoxaparin Sodium (Lovenox) 60 mg SC Q12 [facility] Last Admin: 08/01/18 22:08 Dose: 60 mg Fluticasone Propionate (Flonase) 1 spr AMELIA DAILY [facility] Last Admin: 08/01/18 11:29 Dose: Not Given Hydralazine HCl (Apresoline) 50 mg PO Q8H [facility] Last Admin: 08/02/18 06:45 Dose: 50 mg Loratadine (Claritin) 10 mg PO DAILY [facility] Last Admin: 08/01/18 11:28 Dose: Not Given Losartan Potassium (Cozaar) 100 mg PO DAILY [facility] Last Admin: 08/01/18 09:36 Dose: 100 mg Mlkld-[id number] Ethyl Esters (Lovaza) 1 gm PO BID [facility] Last Admin: 08/01/18 17:58 Dose: 1 gm - Labs Labs: 08/02/18 06:27 08/02/18 06:27 PT 11.7 SECONDS (9.7-12.2) 07/29/18 13:16 INR 1.1 07/29/18 13:16 APTT 42.0 SECONDS (21-34) H 07/29/18 13:16 Assessment and Plan - Assessment and Plan (Free Text) Assessment: a/p 73y OLD MALE with past medical history of HTN, HLD, afib was sent in by Dr. Gamboa for evaluations of palpitations admitted with A Fib with RVR seen by Dr. Cleaning (EP) recommends to continue amiodarone 400mg bid one week and then 200 mg bid one week , Afterwards suggest one pill daily, and outpatient ablation , Continue antiocagulation. D/w Dr. Gamboa ( covering for Dr. Lacey) cleared for discharge home today and continue amiodorone and stop sotolol and bystolic , eliquis 5mg bid and f/u with Dr. lacey office in [address] Sinclair office in 2 weeks D/W Dr. Soto, cleared for discharge home today discharge plan discussed with patient who, understands and agrees with plan patient instructed to return to ED if symptoms returns the following instructions given to patient upon discharge Please f/u with Dr. Lacey office in 1 week Please f/u with Dr. Stroud office in 2 weeks - call and make appointment phone # [phone] Please stop taking sotolol Please stop taking Bystolic Please take eliquis bid Resume all other home medications Please take amiodorone as directed - take amiodarone 400mg bid one week and then 200 mg bid one week . Afterwards take one pill daily.
[2018-08-02] MEDS: Enoxaparin 60 mg Syringe SC SCH (09:16)
[2018-08-02] MEDS: Omega-3-Acid Ethyl Esters 1 GM Cap PO SCH (09:17)
[2018-08-02] MEDS: Fluticasone Nasal 50 mcg/Spray NAS SCH (09:18)
[2018-08-02 11:05] VITALS: BP 141/76; PULSE 65; RESP 12; O2SAT 99
[2018-08-02 11:10] VITALS: TEMP 98.3
--- NOTE | 2018-08-02 20:34 | CP.PCM.DIS ---
Provider - Provider Date of Admission: 07/29/18 14:30 Attending physician: Darius Soto MD Consults: 07/29/18 14:24 Cardiology Consult Stat Comment: Consulting Provider: Rick Gamboa Consulting Physician: Rick Gamboa Reason for Consult: Aflutter, tachycardia. already called 07/29/18 14:25 Critical Care Consult Stat Comment: Consulting Provider: Carlo Chandra Consulting Physician: Carlo Chandra Reason for Consult: Kiley, Dr. 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 Time Spent in preparation of Discharge (in minutes): 30 Hospital Course - Lab Results Lab Results: Micro Results 07/29/18 16:44 Nose MRSA Culture (Admit) - Final MRSA NOT DETECTED Most Recent Lab Values WBC 9.9 K/uL (4.8-10.8) 08/02/18 06:27 RBC 4.91 Mil/uL (4.40-5.90) 08/02/18 06:27 Hgb 15.2 g/dL (12.0-18.0) 08/02/18 06:27 Hct 45.1 % (35.0-51.0) 08/02/18 06:27 MCV 91.8 fL (80.0-94.0) 08/02/18 06:27 MCH 30.9 pg (27.0-31.0) 08/02/18 06:27 MCHC 33.7 g/dL (33.0-37.0) 08/02/18 06:27 RDW 12.8 % (11.5-14.5) 08/02/18 06:27 Plt Count 278 K/uL (130-400) 08/02/18 06:27 MPV 7.5 fL (7.2-11.7) 08/02/18 06: Neut % (Auto) 80.2 % (50.0-75.0) H 08/02/18 06: Lymph % (Auto) 12.6 % (20.0-40.0) L 08/02/18 06:27 Edmunds % (Auto) 6.1 % (0.0-10.0) 08/02/18 06: Eos % (Auto) 0.8 % (0.0-4.0) 08/02/18 06: Baso % (Auto) 0.3 % (0.0-2.0) 08/02/18 06: Neut # (Auto) 8.0 K/uL (1.8-7.0) H 08/02/18 06: Lymph # (Auto) 1.3 K/uL (1.0-4.3) 08/02/18 06: Edmunds # (Auto) 0.6 K/uL (0.0-0.8) 08/02/18 06: Eos # (Auto) 0.1 K/uL (0.0-0.7) 08/02/18 06: Baso # (Auto) 0.0 K/uL (0.0-0.2) 08/02/18 06:27 PT 11.7 SECONDS (9.7-12.2) 07/29/18 13:16 INR 1.1 07/29/18 13:16 APTT 42.0 SECONDS (21-34) H 07/29/18 13:16 Sodium 128 mmol/L (132-148) L 08/02/18 06:27 Potassium 4.5 mmol/L (3.6-5.2) 08/02/18 06:27 Chloride 94 mmol/L (98-107) L 08/02/18 06:27 Carbon Dioxide 26 mmol/L (22-30) 08/02/18 06:27 Anion Gap 13 (10-20) 08/02/18 06:27 BUN 16 mg/dL (9-20) 08/02/18 06:27 Creatinine 1.2 mg/dL (0.8-1.5) 08/02/18 06:27 Est GFR ( Amer) > 60 08/02/18 06:27 Est GFR (Non-Af Amer) 60 08/02/18 06:27 Random Glucose 104 mg/dL (75-110) 08/02/18 06:27 Calcium 9.3 mg/dl (8.6-10.4) 08/02/18 06:27 Phosphorus 3.5 mg/dL (2.5-4.5) 08/02/18 06:27 Magnesium 2.0 mg/dL (1.6-2.3) 08/02/18 06:27 Total Bilirubin 1.8 mg/dL (0.2-1.3) H 08/02/18 06:27 AST 106 U/L (17-59) H D 08/02/18 06:27 ALT 52 U/L (21-72) 08/02/18 06:27 Alkaline Phosphatase 71 U/L (38-126) 08/02/18 06:27 Total Creatine Kinase 273 U/L (55-170) H 07/31/18 06:05 CK-MB (Mass) 0.91 ng/mL (0.0-3.38) 07/31/18 06:05 Troponin I < 0.0120 ng/mL (0.00-0.120) 07/31/18 06:05 NT-Pro-B Natriuret Pep 2350 pg/mL (0-900) H 07/29/18 13:16 Total Protein 7.7 g/dL (6.3-8.3) 08/02/18 06:27 Albumin 4.5 g/dL (3.5-5.0) 08/02/18 06: Globulin 3.2 gm/dL (2.2-3.9) 08/02/18 06:27 Albumin/Globulin Ratio 1.4 (1.0-2.1) 08/02/18 06:27 Triglycerides 149 mg/dL (0-149) 08/01/18 06:04 Cholesterol 179 mg/dL (0-199) 08/01/18 06:04 LDL Cholesterol Direct 118 mg/dL (0-129) 08/01/18 06:04 HDL Cholesterol 48 mg/dL (30-70) 08/01/18 06:04 TSH 3rd Generation 1.14 mIU/L (0.46-4.68) 07/31/18 06:05 Urine Color Yellow (YELLOW) 07/29/18 14:46 Urine Clarity Clear (Clear) 07/29/18 14:46 Urine pH 6.0 (5.0-8.0) 07/29/18 14:46 Ur Specific Be[place] 1.009 (1.003-1.030) 07/29/18 14:46 Urine Protein Negative mg/dL (NEGATIVE) 07/29/18 14:46 Urine Glucose (UA) Normal mg/dL (Normal) 07/29/18 14:46 Urine Ketones Negative mg/dL (NEGATIVE) 07/29/18 14:46 Urine Blood 1+ (NEGATIVE) H 07/29/18 14:46 Urine Nitrate Negative (NEGATIVE) 07/29/18 14:46 Urine Bilirubin Negative (NEGATIVE) 07/29/18 14:46 Urine Urobilinogen Normal mg/dL (0.2-1.0) 07/29/18 14:46 Ur Leukocyte Esterase Neg Morena/uL (Negative) 07/29/18 14:46 Urine WBC (Auto) 1 /hpf (0-5) 07/29/18 14:46 Urine RBC (Auto) 11 /hpf (0-3) H 07/29/18 14:46 Ur Squamous Epith Cells 1 /hpf (0-5) 07/29/18 14:46 Discharge Exam - Head Exam Head Exam: ATRAUMATIC, NORMOCEPHALIC Discharge Plan - Discharge Medications Prescriptions: Apixaban [Eliquis] 5 mg PO BID #60 tab - Follow Up Plan Condition: GOOD Disposition: HOME/ ROUTINE Instructions: Arrhythmias (DC), Pulmonary Hypertension, Adult (DC), Palpitations (DC) Additional Instructions: Please f/u with Dr. Irwin office in 1 week Please f/u with Dr. Stroud office in 2 weeks - call and make appointment phone # [phone] Please stop taking sotolol Please stop taking Bystolic Please take eliquis bid Resume all other home medications Please take amiodorone as directed - take amiodarone 400mg bid one week and then 200 mg bid one week . Afterwards take one pill daily.
--- NOTE | 2018-08-03 06:05 | DS ---
DISCHARGE DIAGNOSES: Atrial fibrillation with rapid ventricular response, hypertension, hyperlipidemia. HOSPITAL COURSE: This is a 73-year-old [place] male with history of hypertension, hyperlipidemia, who came in because of chest pain, palpitation, weakness, dizziness. He was found to be an narcotic abuser which he responded to his medications. He underwent a cardiac catheterization which is negative for CAD. The patient had CT of the chest, abdomen which is negative. The patient is feeling better. He is for discharge. CONDITION UPON DISCHARGE: Stable. PHYSICAL EXAMINATION: VITAL SIGNS: Blood pressure 141/76, pulse 65, respiratory rate 13, temperature 99. LUNGS: Clear. CVS: S1, S2, regular. ABDOMEN: Soft, nontender. Bowel sounds are positive. ASSESSMENT: 1. Atrial fibrillation with rapid ventricular response. 2. Hypertension. PLAN: Discharge the patient. Monitor the patient. Darius Soto MD
--- NOTE | 2018-08-03 09:55 | CP.PCM.PN ---
Subjective - Date & Time of Evaluation Date of Evaluation: 08/02/18 Time of Evaluation: 09:10 - Subjective Subjective: Patient was seen and examined at bedside. Comfortable. Denies chest pain and dyspnea HR and BP under control Physical examination - Constitutional Appears: No Acute Distress - Head Exam Head Exam: ATRAUMATIC, NORMAL INSPECTION - Eye Exam Eye Exam: EOMI - ENT Exam ENT Exam: Mucous Membranes Moist - Respiratory Exam Respiratory Exam: Clear to Ausculation Bilateral, NORMAL BREATHING PATTERN. absent: Rales, Rhonchi, Wheezes, Respiratory Distress - Cardiovascular Exam Cardiovascular Exam: Tachycardia, Irregular Rhythm, +S1, +S2 - GI/Abdominal Exam GI & Abdominal Exam: Soft, Normal Bowel Sounds. absent: Distended, Firm, Guarding, Tenderness - Exam Additional comments: Right groin- s/p cath; dressing in place, clean/dry/intact; no swelling or erythema noted. - Extremities Exam Extremities Exam: Normal Inspection. absent: Pedal Edema, Tenderness - Neurological Exam Neurological Exam: Alert, Awake, Oriented x3 - Psychiatric Exam Psychiatric exam: Normal Affect, Normal Mood - Skin Skin Exam: Dry, Normal Color, Warm Assessment and Plan - Assessment and Plan (Free Text) Plan: 73 year old male with PMHx A Fib, HTN, HLD who presents in A Fib with rapid ventricular response upon noting his pulse to be elevated following a morning workout. A Fib With variable HR Cardiac Cath: Non Obstructive. Normal EF Medical mgt as per EP AC management as per EP HTN - Continue Home meds Objective - Vital Signs/Intake and Output Vital Signs (last 24 hours): Temp Pulse Resp BP Pulse Ox 98.3 F 65 12 141/76 99 08/02/18 08:00 08/02/18 10:00 08/02/18 10:00 08/02/18 10:00 08/02/18 10:00 - Labs Labs: 08/02/18 06:27 08/02/18 06:27 PT 11.7 SECONDS (9.7-12.2) 07/29/18 13:16 INR 1.1 07/29/18 13:16 APTT 42.0 SECONDS (21-34) H 07/29/18 13:16
--- NOTE | 2018-08-03 22:46 | PQF ---
PROVIDER RESPONSE TEXT: Atrial fibrillation with rvr REVIEWER QUERY TEXT: Atrial Fibrillation Type Physician?s Documentation Request This Form is Not a Permanent Document in the Medical Record Pt Name: DEVIN RUELAS MR #: [id number] Payor: MEDICARE PART A Unit/Bed: C.9I-C18-P Adm Date: 07/29/2018 2:30:00 PM Reviewer: Idania Liz Ext. Query Date: 07/30/2018 2:49:44 PM Atrial Fibrillation Type [id number] By submitting this query, we are merely seeking further clarification of documentation to accurately reflect all conditions that you are monitoring, evaluating, treating or that extend the hospitalizati on or utilize additional resources of care. Please utilize your independent clinical judgment when ad dressing the question(s) below. Dear Doctor Darius Soto, The patient?s Clinical Indicators include: 73 y o m with Hx Atria Fibrillation, HTN admitted for A Fib with RVR -EKG - sinus tach HR 130s, a fib on cadiac monitor Meds: IV Cardizem / Lovenox s/c, Cozaar, Btstolic Atrial fibrillation is documented in the Medical Record. Please specify the type Such as: -- Chronic -- Paroxysmal -- Permanent -- Persistent -- Other, please specify PLEASE DOCUMENT ANY ADDITIONAL DIAGNOSES AND/OR SPECIFICITY IN THE PROGRESS NOTES AND/OR DISCHARGE VENTURA MMARY. Clinically unable to determine/unknown Disagree with the above request Need to discuss Query created by: Idania Liz on 07/30/2018 2:49 PM Electronically signed by: Darius Soto MD 08/03/2018 10:43 PM
--- NOTE | 2018-08-04 06:07 | CARDCATH ---
PROCEDURE DATE: 07/31/2018 PROCEDURES: 1. Left heart catheterization. 2. Coronary angiogram. 3. Aortic root angiogram. REFERRING PHYSICIAN: Nasrin Irwin MD PERFORMING PHYSICIAN: Rick Gamboa MD CLINICAL INDICATIONS: 1. Chest pain. 2. Cardiac arrhythmia. 3. Hypertension. 4. Hyperlipidemia. 5. Atrial fibrillation. DESCRIPTION OF PROCEDURE: After informed consent, the patient was prepped and draped in the usual sterile fashion. Lidocaine 2% was given in the right groin for local anesthesia. Using micropuncture technique, a 6-Bahraini sheath was introduced into the right common femoral artery. A JL4 6-Bahraini diagnostic catheter engaged into left main coronary artery. Contrast injected and left coronary angiogram was done. Then the catheter was exchanged to the JR4 6-Bahraini diagnostic catheter. The catheter engaged into right coronary artery. Contrast injected and right coronary angiogram was done. Then the catheter was exchanged into pigtail catheter. Using the pigtail catheter aortic root angiogram was performed with a power injector. Then the pigtail catheter was inserted into left ventricle. LVEDP measured. Contrast injected into LV and angiogram was done. Gradient across the aortic valve was measured. The patient tolerated the procedure well. Postprocedure Mynx closure device was deployed in the right groin with excellent hemostasis. Radiological supervision and radiological interpretation of the coronary imaging was done. FINDINGS: 1. Left main coronary artery was patent. 2. Proximal, mid LAD and diagonal branch was patent. Distal LAD has a 60% diffuse narrowing with myocardial bridging. Distal LAD has a 60% diffuse narrowing with myocardial bridging. 3. Left circumflex and obtuse marginal branches are patent. 4. Right coronary artery is dominant. Proximal, mid and distal right coronary is patent. PDA has a ostial 50% stenosis. 5. LV ejection fraction approximately 60%. No wall motion abnormality noted. EDP is 20. 6. Aortic root angiogram demonstrates mildly dilated ascending aorta. IMPRESSION: 1. Nonobstructive coronary artery disease as described above. Distal left anterior descending has a diffuse 60% narrowing with myocardial bridging. Posterior descending artery has a ostial 50% stenosis. 2. Left ventricular ejection fraction is 60%. No wall motion abnormality is noted. 3. Mildly dilated ascending aortic root. Recommend medical management. Rick Gamboa MD [facility] # [id number]
== END 2018-08-02 10:35 | disposition home or self-care (01) | DRG 287 ==
LOC: C.ER 12:41 → C.6T 14:30 → C.9E 14:51 → C.9I 14:52
PROVIDERS: ADMIT Internal Medicine; ATTEND Internal Medicine
PROC: 4A023N7 Measurement of Cardiac Sampling and Pressure, Left Heart, Percutaneous Approach (ICD-10-PCS; principal; 2018-07-31)
PROC: B2151ZZ Fluoroscopy of Left Heart using Low Osmolar Contrast (ICD-10-PCS; 2018-07-31)
PROC: B2111ZZ Fluoroscopy of Multiple Coronary Arteries using Low Osmolar Contrast (ICD-10-PCS; 2018-07-31)
PROC: B3101ZZ Fluoroscopy of Thoracic Aorta using Low Osmolar Contrast (ICD-10-PCS; 2018-07-31)
DX: I48.0 Paroxysmal atrial fibrillation (principal); I25.10 Atherosclerotic heart disease of native coronary artery without angina pectoris; E87.1 Hypo-osmolality and hyponatremia; Q24.5 Malformation of coronary vessels; I77.810 Thoracic aortic ectasia; I48.92 Unspecified atrial flutter; I11.9 Hypertensive heart disease without heart failure; I27.20 Pulmonary hypertension, unspecified; E78.2 Mixed hyperlipidemia; R06.02 Shortness of breath; E78.00 Pure hypercholesterolemia, unspecified; K21.9 Gastro-esophageal reflux disease without esophagitis; M19.90 Unspecified osteoarthritis, unspecified site; F11.10 Opioid abuse, uncomplicated; Z87.891 Personal history of nicotine dependence; Z90.49 Acquired absence of other specified parts of digestive tract; Z79.899 Other long term (current) drug therapy

== ENCOUNTER 2018-08-11 11:42 | Inpatient (IN) | payer MEDICARE ==
--- NOTE | 2018-08-11 11:51 | C.PDOC ---
History Of Present Illness 73 year old male with PMHx of A-fib (on eliquis), hypertension, hyperlipidemia, appendectomy, cholecystectomy presents to ED s/p syncopal episode that occurred at home 2 hours [employer]. Patient states that he was feeling dizzy this morning after taking his medication and then fell on the left side of his head. Patient notes a mild headache. He states that he went to see his brother, Alida, who referred him to the ED for further evaluation. Patient notes mild suprapubic pain that feels like gas. He denies taking any medication for his pain. Patient denies neck pain, chest pain, fever, chills, night sweats, diarrhea, constipati on, or dark/bloody stool. Time Seen by Provider: 08/11/18 11:51 Chief Complaint (Nursing): Syncope History Per: Patient History/Exam Limitations: no limitations Onset/Duration Of Symptoms: Hrs (2) Current Symptoms Are (Timing): Still Present Activity At Onset Of Symptoms: Standing Associated Symptoms Preceding Syncopal Episode: Other (dizziness) Seizure Or Post-ictal Symptoms: None Possible Causative Factor(s): New Medications Fall Associated With With Symptoms: Yes Past Medical History Reviewed: Historical Data, Nursing Documentation, Vital Signs - Medical History PMH: Anxiety, Arthritis, Atrial Fibrillation, Cardia Arrhythmia, HTN, Hy percholesterolemia Denies: Chronic Kidney Disease Surgical History: Appendectomy, Cholecystectomy - [facility] Procedures ENDO RECTUM POLYPECTOMY (01/10/14) ENDOSC POLYPECTOMY OF LG INTEST (01/10/14) ESOPHAGOGASTRODUODENOSCOPY [EGD] W/CLOSED BIOPSY (01/10/14) FLUOROSCOPY OF LEFT HEART USING LOW OSMOLAR CONTRAST (07/29/18) FLUOROSCOPY OF MULT COR ART USING L OSM CONTRAST (07/29/18) FLUOROSCOPY OF THORACIC AORTA USING LOW OSMOLAR CONTRAST (07/29/18) INTRAOPER CHOLANGIOGRAM (02/28/14) LAPAROSCOPIC CHOLECYSTECTOMY (02/28/14) MEASURE OF CARDIAC SAMPL & PRESSURE, L HEART, PERC APPROACH (07/29/18) VACCINATION NEC (01/10/14) Family History: States: Unknown Family Hx - Social History Hx Tobacco Use: No Hx Alcohol Use: No Hx Substance Use: No - Immunization History Hx Tetanus Toxoid Vaccination: No Hx Influenza Vaccination: Yes Hx Pneumococcal Vaccination: Yes Review Of Systems Constitutional: Negative for: Fever, Chills, Sweats Eyes: Negative for: Vision Change Cardiovascular: Negative for: Chest Pain Respiratory: Negative for: Cough, Shortness of Breath Gastrointestinal: Negative for: Nausea, Vomiting, Diarrhea, Constipation, Melena, Hematochezia, Hematemesis Genitourinary: Negative for: Dysuria, Frequency, Hematuria Musculoskeletal: Negative for: Neck Pain, Back Pain Skin: Negative for: Rash, Lesions Neurological: Positive for: Headache, Dizziness. Negative for: Weakness, Numbness Physical Exam - Physical Exam Appears: Well, Non-toxic, No Acute Distress Skin: Warm, Dry, No Rash Head: Atraumatic, Normacephalic Eye(s): bilateral: Normal Inspection, PERRL, EOMI Nose: Normal Oral Mucosa: Moist Tongue: Normal Appearing Lips: Normal Appearing Gingiva: Normal Appearing Throat: Normal, No Erythema, No Exudate Neck: Normal ROM, Trachea Midline, No Midline Cervical Tenderness, No Paracervical Tenderness, Supple, No Other ( meningeal signs- negative kernig's and brudzinskis) Chest: Symmetrical, No Deformity, No Tenderness Cardiovascular: Rhythm Regular, No Friction Rub Respiratory: No Rales, No Rhonchi, No Wheezing Gastrointestinal/Abdominal: Soft, Tenderness (above suprapubic region), No Mass, No Distention, No Guarding, No Rebound Back: Normal Inspection, No CVA Tenderness, No Vertebral Tenderness Extremity: Normal ROM, Capillary Refill (<2 seconds) Extremity: Bilateral: Atraumatic, Normal Color And Temperature, Normal ROM Pulses: Left Dorsalis Pedis: Normal, Right Dorsalis Pedis: Normal Neurological/Psych: Oriented x3, Normal Speech, Normal Cognition, Normal Cranial Nerves, No Cerebellar Signs, Normal Motor, Normal Sensation Gait: Steady Other Neurological Findings: No Facial Palsy, No Tongue Deviation Extremity: Right: No Drift, Left: No Drift ED Course And Treatment - Laboratory Results Result Diagrams: 08/11/18 12:10 08/11/18 12:10 - Other Rad CXR X-Ray: Interpreted by Me, Viewed By Me Interpretation: IMPRESSION: No active pulmonary disease. - CT Scan/US Head CT Other Rad Studies (CT/US): Interpreted By Me, Read By Radiologist CT/US Interpretation: IMPRESSION: No acute intracranial abnormality. Mild chronic microangiopathic changes and mild age-related global parenchymal volume loss. Abdomen/Pelvis CT Other Rad Studies (CT/US): Interpreted By Me, Read By Radiologist CT/US Interpretation: IMPRESSION: No acute infiltrates however some minor line ar atelectasis and or scarring seen in the middle lobe and lingular regions. No evidence of pneumothorax or effusion. Cholecystectomy. Minimal fatty hepatic infiltration. Exophytic cortical cyst upper pole left kidney and lower pole right kidney. Multiple tiny low-attenuation foci both kidneys may represent small cysts as well though are too small to characterize. Small left adrenal nodule. Follow-up interval recommended to assess stability. Appendix not positively identified. Nemesio acute fractures are seen. Medical Decision Making Medical Decision Making: Impression: 73 year old male with PMHx of A-fib (on eliquis), hypertension, hyperlipidemia, appendectomy, laproscopic cholecystectomy presents to ED s/p syncopal episode that occurred at home 2 hours [employer]. Spoke to Dr. Alida funes who referred this patient to the ED to be admitted under his service. Pt denies any current dizziness on exam and is without any cereballar signs on exam. No neck pain, chest pain or back pain. No extremity complaints. Initial Plan: type and screen abdomen/pelvis CT EKG CXR Labs ordered with cardiac enzymes CXR: Negative. Head CT: No acute intracranial abnormality. Mild chronic microangiopathic changes and mild age-related global parenchymal volume loss. MDM: Dysrhythmia vs ICH [address] abd pelvis largely unremarkable labs unremarkable Abdomen/Pelvis CT: No acute infiltrates however some minor linear atelectasis and or scarring seen in the middle lobe and lingular regions. No evidence of pneumothorax or effusion. Cholecystectomy. Minimal fatty hepatic infiltration. Exophytic cortical cyst upper pole left kidney and lower pole right kidney. Multiple tiny low-attenuation foci both kidneys may represent small cysts as well though are too small to characterize. Small left adrenal nodule. Follow- up interval recommended to assess stability. Appendix not positively identified. Nemesio acute fractures are seen. Disposition - Disposition Disposition: HOSPITALIZED Disposition Time: 16:11 Condition: STABLE - Clinical Impression Clinical Impression: Syncope - Scribe Statement The provider has reviewed the documentation as recorded by the Scribe (Leida Chavarria) All medical record entries made by the Scribe were at my direction and personally dictated by me. I have reviewed the chart and agree that the record accurately reflects my personal performance of the history, physical exam, medical decision making, and the department course for this patient. I have also personally directed, reviewed, and agree with the discharge instructions and disposition.
[2018-08-11 11:57] VITALS: BMI 23.9
[2018-08-11 12:13] LABS: BASO # 0.1 K/uL (0.0-0.2); BASO % 1.5 % (0.0-2.0); EOS # 0.2 K/uL (0.0-0.7); EOS % 2.3 % (0.0-4.0); HEMOGLOBIN 14.2 g/dL (12.0-18.0); LYMPH % 27.1 % (20.0-40.0); MEAN CELL VOLUME 92.3 fL (80.0-94.0); MEAN CORPUSCULAR HEMOGLOBIN 30.9 pg (27.0-31.0); MEAN CORPUSCULAR HGB CONC 33.4 g/dL (33.0-37.0); MEAN PLATELET VOLUME 6.4 fL (7.2-11.7); MONO # 0.8 K/uL (0.0-0.8); MONO % 10.9 % (0.0-10.0); NEUT # 4.2 K/uL (1.8-7.0); NEUT % 58.2 % (50.0-75.0); NRBC % 0.1 % (0.0-2.0); RBC 4.6 Mil/uL (4.40-5.90); RED CELL DISTRIBUTION WIDTH 12.8 % (11.5-14.5); WHITE BLOOD COUNT 7.2 K/uL (4.8-10.8)
[2018-08-11 12:21] LABS: INR 1.3; PROTHROMBIN TIME 14.2 SECONDS (9.7-12.2)
[2018-08-11 12:37] LABS: ALB/GLOB RATIO 1.3 (1.0-2.1); ALBUMIN 4.8 g/dL (3.5-5.0); ALT/SGPT 54 U/L (21-72); AST/SGOT 60 U/L (17-59); BLOOD UREA NITROGEN 16 mg/dL (9-20); GFR NON-AFRICAN AMERICAN 54
[2018-08-11 12:45] LABS: B-TYPE NATRIURETIC PEPTIDE 1420 pg/mL (0-900)
[2018-08-11] MEDS ORDERED: Iohexol 300 100 ML IJ ONE (13:16)
--- NOTE | 2018-08-11 13:29 | RAD ---
Date of service: 08/11/2018 HISTORY: Syncope COMPARISON: No prior. TECHNIQUE: Chest PA and lateral FINDINGS: LINES AND TUBES: None. LUNG AND PLEURA: The lungs are well inflated and clear. No pleural effusion or pneumothorax. HEART AND MEDIASTINUM: The heart is not enlarged. There are aortic atherosclerotic calcifications present. The hilar and mediastinal contours are within normal limits. SKELETAL STRUCTURES: The bony structures are within normal limits for the patient's age. VISUALIZED UPPER ABDOMEN: Normal. OTHER FINDINGS: None. IMPRESSION: No active pulmonary disease.
--- NOTE | 2018-08-11 15:19 | CT ---
Date of service: 08/11/2018 PROCEDURE: CT HEAD WITHOUT CONTRAST. HISTORY: Fall COMPARISON: None available. TECHNIQUE: Axial computed tomography images were obtained through the head/brain without intravenous contrast. Radiation dose: Total exam DLP = 1131.25 mGy-cm. This CT exam was performed using one or more of the following dose reduction techniques: Automated exposure control, adjustment of the mA and/or kV according to patient size, and/or use of iterative reconstruction technique. FINDINGS: HEMORRHAGE: No intracranial hemorrhage. BRAIN: There are mild chronic microangiopathic changes. There is no mass, mass effect or abnormal extra-axial fluid collection. There is no territorial infarction. The midline sagittal structures are normal. VENTRICLES: There is mild age-related global parenchymal volume loss and proportionate enlargement of the ventricles and cortical sulci. CALVARIUM: There is no calvarial fracture or extracranial soft tissue swelling. PARANASAL SINUSES: Predominantly clear. MASTOID AIR CELLS: Predominantly clear. OTHER FINDINGS: None. IMPRESSION: No acute intracranial abnormality. Mild chronic microangiopathic changes and mild age-related global parenchymal volume loss.
--- NOTE | 2018-08-11 15:52 | CT ---
Date of service: 08/11/2018 PROCEDURE: CT Abdomen and Pelvis with contrast HISTORY: suprapubic pain s/p fall on ac COMPARISON: Correlation made with CTA of the chest and abdomen 08/01/2018. TECHNIQUE: Contiguous helical/transaxial sections of the abdomen and pelvis performed following intravenous injection of approximately 100 cc Visipaque Omnipaque 300 contrast material. Additional 2D sagittal and coronal reformats generated. Radiation dose: Total exam DLP = 518.78 mGy-cm. This CT exam was performed using one or more of the following dose reduction techniques: Automated exposure control, adjustment of the mA and/or kV according to patient size, and/or use of iterative reconstruction technique. FINDINGS: LOWER THORAX: Heart size is within range of normal. No significant pericardial effusion. Small hiatal hernia. There appears to be some minor atelectatic/scarring changes in the middle lobe and lingular regions. Lung bases otherwise clear. No infiltrate effusion or basilar pneumothorax. LIVER: Liver exhibits normal size and attenuation pattern without mass collection or calcification suspect minimal fatty hepatic infiltration.. Portal and splenic veins opacified. GALLBLADDER AND BILE DUCTS: Cholecystectomy. PANCREAS: Unremarkable. No gross lesion or ductal dilatation. SPLEEN: Unremarkable. ADRENALS: There is a small approximately 12.9 mm left adrenal nodule. Follow-up KIDNEYS AND URETERS: Kidneys demonstrate symmetric nephrograms. No evidence of nephrolithiasis or hydronephrosis. Redemonstrated is a exophytic cyst arising from the upper pole left kidney measuring approximately 2.7 cm. Also again seen is an approximately 2.6 cm exophytic cyst arising from the lower pole right kidney. Additionally, multiple tiny low-attenuation foci a gaze see scattered throughout both kidneys too small to characterize though probably represent tiny cysts as well. VASCULATURE: Unremarkable. No aortic aneurysm. Mild aortic atherosclerotic calcification or mural plaque present. BOWEL: Evaluation of the bowel is somewhat limited due to the lack of oral contrast material. Stomach is incompletely distended. Visualized loops of small bowel exhibit normal contour and caliber. No evidence of acute mechanical small bowel obstruction. APPENDIX: Appendix is not positively identified on this exam however no inflammatory changes right lower quadrant of the abdomen. PERITONEUM: Unremarkable. No free fluid. No free air. Small fat containing umbilical hernia. LYMPH NODES: Unremarkable. No enlarged lymph nodes. BLADDER: Urinary bladder is physiologically distended. No evidence of intraluminal urinary bladder calculi. REPRODUCTIVE: Prostate gland measures approximately 3.7 cm transverse dimension. Prostatic calcification present. BONES: Osseous structures appear grossly intact with no evidence of pelvic fracture. Vertebral bodies also intact. Mild multilevel degenerative spondylosis of the lower thoracic and lumbar spine. OTHER FINDINGS: None. IMPRESSION: No acute infiltrates however some minor linear atelectasis and or scarring seen in the middle lobe and lingular regions. No evidence of pneumothorax or effusion. Cholecystectomy. Minimal fatty hepatic infiltration. Exophytic cortical cyst upper pole left kidney and lower pole right kidney. Multiple tiny low-attenuation foci both kidneys may represent small cysts as well though are too small to characterize. Small left adrenal nodule. Follow-up interval recommended to assess stability. Appendix not positively identified. Nemesio acute fractures are seen.
[2018-08-11 18:06] VITALS: RESP 20
--- NOTE | 2018-08-12 05:17 | CP.PCM.HP ---
History of Present Illness - History of Present Illness History of Present Illness: CC syncope HPI 73 year old male with PMHx of Paroxysmal A-fib (on eliquis) w/ Godwin-Tachy presentation and highly sensitive to sotalol, amiodarone and Cardizem presenting as severe rash and severe bradycardia, hypertension, hyperlipidemia, presents to ED s/p syncopal episode that occurred at home 2 hours [employer]. Patient states that he was feeling dizzy this morning after taking his medication and then fell on the left side of his head against the wall causing indentation on the sheetrock. Patient experienced a mild headache. Patient presented in my office and I sent him to the ED for further evaluation. Patient notes mild suprapubic pain that feels like gas. He denies taking any medication for his pain. Patient denies neck pain, chest pain, fever, chills, night sweats, diarrhea, constipation, or dark/bloody stool. Recent cardiac cath 1 week ago revealed normal coronaries, normal LV systolic function, no gradient across the aortic valve ROS syncope; headache; recurrent dizziness PMH Paroxysmal afib HTN Gout Lipid disorder Moderate Pulmonary HTN Surgical Hx Appendectomy Sofie-Lap Family Hx Dad of [place] at 66y/o Mom at 87y/o of old age 2 sis- 1 sis with T2dm and HTN; 1 sis with Colon ca in remission 3 bros- 1 bro at 45y/o of nasopharyngeal ca; 1 bro 74y/o with multiple stroke; 1 bro with HTN A/W SOCIAL HX former smoker- stopped 45years ago +social drinker no illicit drug use Present on Admission - Present on Admission Any Indicators Present on Admission: No Review of Systems - Constitutional Constitutional: Weakness - Cardiovascular Cardiovascular: Irregular Heart Rhythm, Lightheadedness, Palpitations, Syncope. absent: Chest Pain - Gastrointestinal Gastrointestinal: absent: Diarrhea - Musculoskeletal Musculoskeletal: Arthralgias - Neurological Neurological: Dizziness, Syncope Past Patient History - Infectious Disease Hx of Infectious Diseases: None - Past Medical History & Family History Past Medical History?: Yes - Past Social History Smoking Status: Former Smoker - CARDIAC Hx Atrial Fibrillation: Yes Hx Cardia Arrhythmia: Yes Hx Hypercholesterolemia: Yes Hx Hypertension: Yes - PULMONARY Hx Respiratory Disorders: No - NEUROLOGICAL Hx Neurological Disorder: No - HEENT Hx HEENT Problems: No Other/Comment: seasonal allergies - RENAL Hx Chronic Kidney Disease: No - ENDOCRINE/METABOLIC Hx Endocrine Disorders: Yes Other/Comment: HX of recurrent hyponatremia - HEMATOLOGICAL/ONCOLOGICAL Hx Blood Disorders: No - INTEGUMENTARY Hx Dermatological Problems: No - MUSCULOSKELETAL/RHEUMATOLOGICAL Hx Arthritis: Yes Hx Falls: Yes - GASTROINTESTINAL Hx Gastrointestinal Disorders: Yes Hx Gastroesophageal Reflux: Yes Other/Comment: cholelithiasis - GENITOURINARY/GYNECOLOGICAL Hx Genitourinary Disorders: No - PSYCHIATRIC Hx Anxiety: Yes Hx Substance Use: No - SURGICAL HISTORY Hx Appendectomy: Yes Hx Cholecystectomy: Yes - ANESTHESIA Hx Anesthesia: Yes Hx Anesthesia Reactions: No Hx Malignant Hyperthermia: No Meds Allergies/Adverse Reactions: Allergies Allergy/AdvReac Type Severity Reaction Status Date / Time amiodarone Allergy Verified 08/11/18 11:46 amlodipine Allergy Verified 07/29/18 12:52 Physical Exam - Constitutional Appears: Non-toxic - Head Exam Head Exam: NORMAL INSPECTION - Eye Exam Eye Exam: absent: Scleral icterus - ENT Exam ENT Exam: Mucous Membranes Moist - Neck Exam Neck exam: Positive for: Full Rom - Respiratory Exam Respiratory Exam: Decreased Breath Sounds - Cardiovascular Exam Cardiovascular Exam: REGULAR RHYTHM - GI/Abdominal Exam GI & Abdominal Exam: Normal Bowel Sounds, Soft. absent: Tenderness - Extremities Exam Extremities exam: Negative for: calf tenderness, pedal edema - Neurological Exam Neurological exam: Alert - Psychiatric Exam Psychiatric exam: Anxious Results - Vital Signs Recent Vital Signs: Last Vital Signs Temp 98.1 F 08/11/18 23:40 Pulse 72 08/11/18 23:40 Resp 20 08/11/18 23:40 BP 130/74 08/11/18 23:40 Pulse Ox 100 08/11/18 23:40 - Labs Result Diagrams: 08/11/18 12:10 08/11/18 12:10 Labs: Laboratory Results - last 24 hr 08/11/18 08/11/18 08/11/18 12:10 12:10 12:10 WBC 7.2 RBC 4.60 Hgb 14.2 Hct 42.5 MCV 92.3 MCH 30.9 MCHC 33.4 RDW 12.8 Plt Count 441 H D MPV 6.4 L Neut % (Auto) 58.2 Lymph % (Auto) 27.1 [place] % (Auto) 10.9 H Eos % (Auto) 2.3 Baso % (Auto) 1.5 Neut # (Auto) 4.2 Lymph # (Auto) 2.0 [place] # (Auto) 0.8 Eos # (Auto) 0.2 Baso # (Auto) 0.1 PT 14.2 H INR 1.3 APTT 37.0 H Sodium 137 Potassium 4.4 Chloride 100 Carbon Dioxide 26 Anion Gap 16 BUN 16 Creatinine 1.3 Est GFR ( Amer) > 60 Est GFR (Non-Af Amer) 54 Random Glucose 107 Calcium 10.0 Magnesium 2.0 Total Bilirubin 0.6 AST 60 H D ALT 54 Alkaline Phosphatase 94 Troponin I < 0.0120 NT-Pro-B Natriuret Pep 1420 H Total Protein 8.5 H Albumin 4.8 Globulin 3.7 Albumin/Globulin Ratio 1.3 TSH 3rd Generation 1.17 Blood Type Antibody Screen 08/11/18 12:16 WBC RBC Hgb Hct MCV MCH MCHC RDW Plt Count MPV Neut % (Auto) Lymph % (Auto) [place] % (Auto) Eos % (Auto) Baso % (Auto) Neut # (Auto) Lymph # (Auto) [place] # (Auto) Eos # (Auto) Baso # (Auto) PT INR APTT Sodium Potassium Chloride Carbon Dioxide Anion Gap BUN Creatinine Est GFR ( Amer) Est GFR (Non-Af Amer) Random Glucose Calcium Magnesium Total Bilirubin AST ALT Alkaline Phosphatase Troponin I NT-Pro-B Natriuret Pep Total Protein Albumin Globulin Albumin/Globulin Ratio TSH 3rd Generation Blood Type O POSITIVE Antibody Screen Negative Assessment & Plan - Assessment and Plan (Free Text) Assessment: Syncope Godwin-Tachy syndrome(SSS) Paroxysmal atrial fibrillation Head Trauma sustained from a FALL-Pt on eliquis HTN Lipid disorder Hx of Gout Plan: CT scan of Head EP consult with Dr Grigsby Neuro consult with Dr Newman Consider ablation/PPM implant - Date & Time Date: 08/11/18 Time: 19:00
--- NOTE | 2018-08-12 08:00 | CP.PCM.PN ---
Subjective - Date & Time of Evaluation Date of Evaluation: 08/12/18 Time of Evaluation: 07:58 - Subjective Subjective: CT of Head - no bleed Tele - HR physiologic 110-70bpm irregular, on afib all night; on Losartan, Cardizem 60mg po TID, eliquis 5mg po bid Pt is awake, alert NAD Mild rash last night? IV dye-contrast allergy; responded to solumedrol, benadryl and Pepcid Objective - Vital Signs/Intake and Output Vital Signs (last 24 hours): Temp Pulse Resp BP Pulse Ox 98.5 F 91 H 20 119/72 98 08/12/18 07:25 08/12/18 07:25 08/12/18 07:25 08/12/18 07:25 08/12/18 07:25 Intake and Output: 08/12/18 08/12/18 06:59 18:59 Output Total 300 Balance -300 - Medications Medications: Current Medications Apixaban (Eliquis) 5 mg PO BID [facility] Last Admin: 08/11/18 22:07 Dose: 5 mg Diltiazem HCl (Cardizem) 60 mg PO Q8H [facility] Last Admin: 08/12/18 02:51 Dose: 60 mg Losartan Potassium (Cozaar) 100 mg PO DAILY [facility] Last Admin: 08/11/18 18:49 Dose: 100 mg - Labs Labs: 08/11/18 12:10 08/11/18 12:10 PT 14.2 SECONDS (9.7-12.2) H 08/11/18 12:10 INR 1.3 08/11/18 12:10 APTT 37.0 SECONDS (21-34) H 08/11/18 12:10 - Constitutional Appears: Non-toxic - Head Exam Head Exam: NORMAL INSPECTION - Eye Exam Eye Exam: absent: Scleral icterus - Neck Exam Neck Exam: Full ROM. absent: Lymphadenopathy - Respiratory Exam Respiratory Exam: Clear to Ausculation Bilateral - Cardiovascular Exam Cardiovascular Exam: Irregular Rhythm - GI/Abdominal Exam GI & Abdominal Exam: Soft, Tenderness - Extremities Exam Extremities Exam: absent: Pedal Edema - Neurological Exam Neurological Exam: Alert, Normal Gait Assessment and Plan - Assessment and Plan (Free Text) Assessment: Syncope Paroxysmal Afib- possibly SSS with Godwin-tachy syndrome HTN Plan: JAZLYN reyes w/ Dr Dobesh-pending Will need ablation/PPM implant Second opinion with Dr Gamboa Neurology consult with Dr Newman
--- NOTE | 2018-08-12 20:18 | CP.PCM.CON ---
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 Patient states that he was feeling dizzy this morning after taking his medication and then fell on the left side of his head. Patient notes a mild headache. He states that he went to see his brother, Dr. Irwin, who referred him to the ED for further evaluation. Patient notes mild suprapubic pain that feels like gas. He denies taking any medication for his pain. Patient denies neck pain, chest pain, fever, chills, night sweats, diarrhea, constipation, or dark/bloody stool. Chief Complaint (Nursing): Syncope History Per: Patient History/Exam Limitations: no limitations Onset/Duration Of Symptoms: Hrs (2) Current Symptoms Are (Timing): Still Present Activity At Onset Of Symptoms: Standing Associated Symptoms Preceding Syncopal Episode: Other (dizziness) Seizure Or Post-ictal Symptoms: None Possible Causative Factor(s): New Medications Fall Associated With With Symptoms: Yes Past Medical History Reviewed: Historical Data, Nursing Documentation, Vital Signs - Medical History PMH: Anxiety, Arthritis, Atrial Fibrillation, Cardia Arrhythmia, HTN, Hypercholesterolemia Denies: Chronic Kidney Disease Surgical History: Appendectomy, Cholecystectomy - [facility] Procedures ENDO RECTUM POLYPECTOMY (01/10/14) ENDOSC POLYPECTOMY OF LG INTEST (01/10/14) ESOPHAGOGASTRODUODENOSCOPY [EGD] W/CLOSED BIOPSY (01/10/14) FLUOROSCOPY OF LEFT HEART USING LOW OSMOLAR CONTRAST (07/29/18) FLUOROSCOPY OF MULT COR ART USING L OSM CONTRAST (07/29/18) FLUOROSCOPY OF THORACIC AORTA USING LOW OSMOLAR CONTRAST (07/29/18) INTRAOPER CHOLANGIOGRAM (02/28/14) LAPAROSCOPIC CHOLECYSTECTOMY (02/28/14) MEASURE OF CARDIAC SAMPL & PRESSURE, L HEART, PERC APPROACH (07/29/18) VACCINATION NEC (01/10/14) Family History: States: Unknown Family Hx - Social History Hx Tobacco Use: No Hx Alcohol Use: No Hx Substance Use: No - Immunization History Hx Tetanus Toxoid Vaccination: No Hx Influenza Vaccination: Yes Hx Pneumococcal Vaccination: Yes Review Of Systems Constitutional: Negative for: Fever, Chills, Sweats Eyes: Negative for: Vision Change Cardiovascular: Negative for: Chest Pain Respiratory: Negative for: Cough, Shortness of Breath Gastrointestinal: Negative for: Nausea, Vomiting, Diarrhea, Constipation, Melena, Hematochezia, Hematemesis Genitourinary: Negative for: Dysuria, Frequency, Hematuria Musculoskeletal: Negative for: Neck Pain, Back Pain Skin: Negative for: Rash, Lesions Neurological: Positive for: Headache, Dizziness. Negative for: Weakness, Numbness Physical Exam - Physical Exam Appears: Well, Non-toxic, No Acute Distress Skin: Warm, Dry, No Rash Head: Atraumatic, Normacephalic Eye(s): bilateral: Normal Inspection, PERRL, EOMI Nose: Normal Oral Mucosa: Moist Tongue: Normal Appearing Lips: Normal Appearing Gingiva: Normal Appearing Throat: Normal, No Erythema, No Exudate Neck: Normal ROM, Trachea Midline, No Midline Cervical Tenderness, No Paracervical Tenderness, Supple, No Other ( meningeal signs- negative kernig's and brudzinskis) Chest: Symmetrical, No Deformity, No Tenderness Cardiovascular: Rhythm Regular, No Friction Rub Respiratory: No Rales, No Rhonchi, No Wheezing Gastrointestinal/Abdominal: Soft, Tenderness (above suprapubic region), No Mass, No Distention, No Guarding, No Rebound Back: Normal Inspection, No CVA Tenderness, No Vertebral Tenderness Extremity: Normal ROM, Capillary Refill (<2 seconds) Extremity: Bilateral: Atraumatic, Normal Color And Temperature, Normal ROM Pulses: Left Dorsalis Pedis: Normal, Right Dorsalis Pedis: Normal Neurological/Psych: Oriented x3, Normal Speech, Normal Cognition, Normal Cranial Nerves, No Cerebellar Signs, Normal Motor, Normal Sensation Gait: Steady Other Neurological Findings: No Facial Palsy, No Tongue Deviation Extremity: Right: No Drift, Left: No Drift Past Patient History - Infectious Disease Hx of Infectious Diseases: None - Past Medical History & Family History Past Medical History?: Yes - Past Social History Smoking Status: Former Smoker - CARDIAC Hx Atrial Fibrillation: Yes Hx Cardia Arrhythmia: Yes Hx Hypercholesterolemia: Yes Hx Hypertension: Yes - PULMONARY Hx Respiratory Disorders: No - NEUROLOGICAL Hx Neurological Disorder: No - HEENT Hx HEENT Problems: No Other/Comment: seasonal allergies - RENAL Hx Chronic Kidney Disease: No - ENDOCRINE/METABOLIC Hx Endocrine Disorders: Yes Other/Comment: HX of recurrent hyponatremia - HEMATOLOGICAL/ONCOLOGICAL Hx Blood Disorders: No - INTEGUMENTARY Hx Dermatological Problems: No - MUSCULOSKELETAL/RHEUMATOLOGICAL Hx Arthritis: Yes - GASTROINTESTINAL Hx Gastrointestinal Disorders: Yes Hx Gastroesophageal Reflux: Yes Other/Comment: cholelithiasis - GENITOURINARY/GYNECOLOGICAL Hx Genitourinary Disorders: No - PSYCHIATRIC Hx Anxiety: Yes Hx Substance Use: No - SURGICAL HISTORY Hx Appendectomy: Yes Hx Cholecystectomy: Yes - ANESTHESIA Hx Anesthesia: Yes Hx Anesthesia Reactions: No Hx Malignant Hyperthermia: No Meds Allergies/Adverse Reactions: Allergies Allergy/AdvReac Type Severity Reaction Status Date / Time amiodarone Allergy Verified 08/11/18 11:46 amlodipine Allergy Verified 07/29/18 12:52 - Medications Medications: Current Medications Apixaban (Eliquis) 5 mg PO BID [facility] Last Admin: 08/12/18 18:09 Dose: 5 mg Diltiazem HCl (Cardizem) 60 mg PO Q8H [facility] Last Admin: 08/12/18 18:09 Dose: 60 mg Losartan Potassium (Cozaar) 100 mg PO DAILY [facility] Last Admin: 08/12/18 10:45 Dose: 100 mg Results - Vital Signs Recent Vital Signs: Last Vital Signs Temp 98.3 F 08/12/18 15:40 Pulse 76 08/12/18 16:00 Resp 20 08/12/18 15:40 BP 161/80 H 08/12/18 15:40 Pulse Ox 100 08/12/18 15:40 - Labs Result Diagrams: 08/11/18 12:10 08/11/18 12:10 Assessment & Plan - Assessment and Plan (Free Text) Assessment: A Fib Tachy Godwin syndrome Non Obstructive CAD Normal EF PPM evaluation +/-Ablation by Dr. Grigsby D/W Dr. Grigsby and Dr. Irwin
--- NOTE | 2018-08-13 07:05 | CP.PCM.CON ---
History of Present Illness - History of Present Illness History of Present Illness: CONSULTATION DICTATED VERTEBRO BASIALAR INSUFFICIENCY/ VASOVAGAL / CARDIAC MID AND APPENDICULAR DYSFUNCTION - PRE EXISTING CAROTID/MRI/EEG ANTIPLATELTES/ ELIQUIS WILL ADD ANTIPLATELTS AFTER HIS MRI BRAIN IF NEEDED Past Patient History - Infectious Disease Hx of Infectious Diseases: None - Past Medical History & Family History Past Medical History?: Yes - Past Social History Smoking Status: Former Smoker - CARDIAC Hx Atrial Fibrillation: Yes Hx Cardia Arrhythmia: Yes Hx Hypercholesterolemia: Yes Hx Hypertension: Yes - PULMONARY Hx Respiratory Disorders: No - NEUROLOGICAL Hx Neurological Disorder: No - HEENT Hx HEENT Problems: No Other/Comment: seasonal allergies - RENAL Hx Chronic Kidney Disease: No - ENDOCRINE/METABOLIC Hx Endocrine Disorders: Yes Other/Comment: HX of recurrent hyponatremia - HEMATOLOGICAL/ONCOLOGICAL Hx Blood Disorders: No - INTEGUMENTARY Hx Dermatological Problems: No - MUSCULOSKELETAL/RHEUMATOLOGICAL Hx Arthritis: Yes - GASTROINTESTINAL Hx Gastrointestinal Disorders: Yes Hx Gastroesophageal Reflux: Yes Other/Comment: cholelithiasis - GENITOURINARY/GYNECOLOGICAL Hx Genitourinary Disorders: No - PSYCHIATRIC Hx Anxiety: Yes Hx Substance Use: No - SURGICAL HISTORY Hx Appendectomy: Yes Hx Cholecystectomy: Yes - ANESTHESIA Hx Anesthesia: Yes Hx Anesthesia Reactions: No Hx Malignant Hyperthermia: No Meds Allergies/Adverse Reactions: Allergies Allergy/AdvReac Type Severity Reaction Status Date / Time amiodarone Allergy Verified 08/11/18 11:46 amlodipine Allergy Verified 07/29/18 12:52 - Medications Medications: Current Medications Apixaban (Eliquis) 5 mg PO BID [facility] Last Admin: 08/12/18 18:09 Dose: 5 mg Diltiazem HCl (Cardizem) 60 mg PO Q8H [facility] Last Admin: 08/13/18 04:42 Dose: 60 mg Losartan Potassium (Cozaar) 100 mg PO DAILY [facility] Last Admin: 08/12/18 10:45 Dose: 100 mg Results - Vital Signs Recent Vital Signs: Last Vital Signs Temp 98.4 F 08/12/18 23:00 Pulse 67 08/13/18 04:02 Resp 20 08/12/18 23:00 BP 114/66 08/13/18 04:42 Pulse Ox 99 08/12/18 23:00 - Labs Result Diagrams: 08/11/18 12:10 08/11/18 12:10
[2018-08-13 08:14] LABS: FREE T4 1.21 ng/dL (0.78-2.19)
[2018-08-13 08:21] LABS: PROLACTIN 16.5 ng/mL (3.7-17.9)
--- NOTE | 2018-08-13 11:14 | VASCLAB ---
Date of service: 08/12/2018 PROCEDURE: Carotid Duplex Exam. HISTORY: Syncope COMPARISON: None available. TECHNIQUE: Grayscale and duplex Doppler evaluation of the cervical carotid and vertebral arteries were performed. The common carotid, carotid bifurcations and cervical Internal Carotid Artery (ICA) and proximal External Carotid Artery (ECA) were evaluated. The vertebral arteries were evaluated for gross patency and flow direction. Report prepared by GAUDENCIO Mcgrath FINDINGS: RIGHT CAROTID ARTERIES: 1. Common Carotid Artery: No significant focal plaque formation of the right common carotid artery. Maximum Peak Systolic velocity: 121 cm/sec: End-diastolic velocity 25 cm/sec. 2. Carotid Bifurcation: plaque formation. Maximum Peak Systolic velocity: 106 cm/sec: End-diastolic velocity 7 cm/sec. 3. Internal Carotid Artery: Plaque description: 3.1. Proximal Segment: Peak systolic velocity 108 cm/sec: End-diastolic velocity 13 cm/sec - % stenosis 0-15% 3.2. Middle Segment: Peak systolic velocity 76 cm/sec: End-diastolic velocity 22 cm/sec - % stenosis 0-15% 3.3. Distal Segment: Peak systolic velocity 106 cm/sec: End-diastolic velocity 39 cm/sec - % stenosis 0-15% 4. External Carotid Artery: No significant focal plaque formation. Peak systolic velocity 141 cm/sec 5. ICA/CCA Ratio: 1.0 LEFT CAROTID ARTERIES: 1. Common Carotid Artery: No significant focal plaque formation of the left common carotid artery. Maximum Peak Systolic velocity: 130 cm/sec: End-diastolic velocity 23 cm/sec. 2. Carotid Bifurcation: plaque formation. Maximum Peak Systolic velocity: 151 cm/sec: End-diastolic velocity 11 cm/sec. 3. Internal Carotid Artery: Plaque description: 3.1. Proximal Segment: Peak systolic velocity 123 cm/sec: End-diastolic velocity 11 cm/sec - % stenosis 0-15% 3.2. Middle Segment: Peak systolic velocity 118 cm/sec: End-diastolic velocity 23 cm/sec - % stenosis 0-15% 3.3. Distal Segment: Peak systolic velocity 118 cm/sec: End-diastolic velocity 37 cm/sec - % stenosis 0-15% 4. External Carotid Artery: No significant focal plaque formation. Peak systolic velocity 142 cm/sec 5. ICA/CCA Ratio: 1.4 VERTEBRAL ARTERIES: 1. Right Vertebral Artery: The right vertebral artery flow direction is antegrade. 2. Left Vertebral Artery: The left vertebral artery flow direction is antegrade. OTHER FINDINGS: 1. Right Brachial Blood pressure: 130/80 mmHg. 2. Left Brachial Blood pressure: 140/60 mmHg. 3. No atherosclerotic calcification present IMPRESSION: RIGHT: Duplex scan does not suggest hemodynamically significant stenosis of the right extracranial carotid arteries. LEFT: Duplex scan does not suggest hemodynamically significant stenosis of the left extracranial carotid arteries.
[2018-08-13] MEDS ORDERED: Lidocaine 2% MPF (5 ml) Inj ONE (11:32)
--- NOTE | 2018-08-13 11:56 | CP.PCM.CON ---
History of Present Illness - History of Present Illness History of Present Illness: Dr. Gamboa has asked me to see this patient with syncope and bradycardia This is a pleasant 73 yo man with a CV history of PAF, HTN and mixed hyperlipidemia. Has had atrial fibrillation for several years. He took sotalol for many y ears without incident. Although prescribed 80 mg he was takining only 40mg once daily becaused the full dose casued excessive bradycardia and tiredness. He was admitted with rapid, symptomatic atrial fibrillation two months ago. AT that time he underwent cardiac cath which was unrevealing. He was initated on amiodarone for rhythm control. He was discharged home on oral amiodarone but after a few days developed an allergic skin exanthm. Amiodarone was discontinuedin favor of low dose diltiazem. On the day of admission, shortly after taking his medication, while walking within his home, he ex perienced syncope and struck his head on the wall. No associated palpitations. No modifying factors. His checked his pulse and found it to be quite low. While hospitalized he has experienced episodes of AF with RVR and sinus bradycardia. PMEDHx: PAF, pulmonary HTN, systemic HTN, s/p appy, s/p ccy SocialHx: no tobacco use or alcohol use FamilyHx: No premature CAD or sudden Echo: 07/29/18 LA 3.5 Mild MR diastolic dysfunction pulmonary HTn at 61 Review of Systems - Constitutional Constitutional: absent: Chills, Fever - EENT Eyes: absent: Blind Spots, Blurred Vision, Diplopia Ears: absent: Decreased Hearing Nose/Mouth/Throat: absent: Epistaxis, Nasal Congestion - Cardiovascular Cardiovascular: Dyspnea on Exertion, Palpitations, Rapid Heart Rate, Slow Heart Rate, Syncope - Respiratory Respiratory: absent: Cough, Wheezing - Gastrointestinal Gastrointestinal: absent: Abdominal Pain - Genitourinary Genitourinary: absent: Difficulty Urinating - Musculoskeletal Musculoskeletal: absent: Abnormal Gait, Back Pain - Neurological Neurological: absent: Abnormal Gait, Tingling, Tremor - Psychiatric Psychiatric: absent: Confusion, Depression - Endocrine Endocrine: absent: Change in Body Appearance - Hematologic/Lymphatic Hematologic: absent: Easy Bleeding, Easy Bruising Past Patient History - Infectious Disease Hx of Infectious Diseases: None - Past Medical History & Family History Past Medical History?: Yes - Past Social History Smoking Status: Former Smoker - CARDIAC Hx Atrial Fibrillation: Yes Hx Cardia Arrhythmia: Yes Hx Hypercholesterolemia: Yes Hx Hypertension: Yes - PULMONARY Hx Respiratory Disorders: No - NEUROLOGICAL Hx Neurological Disorder: No - HEENT Hx HEENT Problems: No Other/Comment: seasonal allergies - RENAL Hx Chronic Kidney Disease: No - ENDOCRINE/METABOLIC Hx Endocrine Disorders: Yes Other/Comment: HX of recurrent hyponatremia - HEMATOLOGICAL/ONCOLOGICAL Hx Blood Disorders: No - INTEGUMENTARY Hx Dermatological Problems: No - MUSCULOSKELETAL/RHEUMATOLOGICAL Hx Arthritis: Yes - GASTROINTESTINAL Hx Gastrointestinal Disorders: Yes Hx Gastroesophageal Reflux: Yes Other/Comment: cholelithiasis - GENITOURINARY/GYNECOLOGICAL Hx Genitourinary Disorders: No - PSYCHIATRIC Hx Anxiety: Yes Hx Substance Use: No - SURGICAL HISTORY Hx Appendectomy: Yes Hx Cholecystectomy: Yes - ANESTHESIA Hx Anesthesia: Yes Hx Anesthesia Reactions: No Hx Malignant Hyperthermia: No Meds Allergies/Adverse Reactions: Allergies Allergy/AdvReac Type Severity Reaction Status Date / Time amiodarone Allergy Verified 08/11/18 11:46 amlodipine Allergy Verified 07/29/18 12:52 - Medications Medications: Current Medications Apixaban (Eliquis) 5 mg PO BID [facility] Last Admin: 08/12/18 18:09 Dose: 5 mg Diltiazem HCl (Cardizem) 60 mg PO Q8H [facility] Last Admin: 08/13/18 10:38 Dose: 60 mg Heparin Sodium (Porcine) (Heparin) 5,000 units SC Q8 [facility] Last Admin: 08/13/18 10:39 Dose: 5,000 units Cefazolin Sodium/Dextrose (Ancef Iv 1 Gm Duplex) 1 gm in 50 mls @ 100 mls/hr IVPB ONCE ONE; Protocol Stop: 08/13/18 12:29 Gentamicin Sulfate 80 mg/ (Sodium Chloride) 102 mls @ 100 mls/hr IVPB Q8H [facility]; Protocol Losartan Potassium (Cozaar) 100 mg PO DAILY [facility] Last Admin: 08/13/18 10:38 Dose: 100 mg Physical Exam - Constitutional Appears: Well, Non-toxic - Head Exam Head Exam: ATRAUMATIC, NORMAL INSPECTION, NORMOCEPHALIC - Eye Exam Eye Exam: EOMI, Normal appearance, PERRL - ENT Exam ENT Exam: Mucous Membranes Moist - Neck Exam Neck exam: Negative for: Lymphadenopathy - Respiratory Exam Respiratory Exam: Clear to Auscultation Bilateral - Cardiovascular Exam Cardiovascular Exam: REGULAR RHYTHM - GI/Abdominal Exam GI & Abdominal Exam: Normal Bowel Sounds - Extremities Exam Extremities exam: Positive for: normal inspection - Neurological Exam Neurological exam: Alert, CN II-XII Intact, Oriented x3 Results - Vital Signs Recent Vital Signs: Last Vital Signs Temp 97.7 F 08/13/18 07:00 Pulse 67 08/13/18 04:02 Resp 20 08/13/18 07:00 BP 122/71 08/13/18 07:00 Pulse Ox 98 08/13/18 07:00 - Labs Result Diagrams: 08/11/18 12:10 08/11/18 12:10 Labs: Laboratory Results - last 24 hr 08/13/18 08/13/18 08/13/18 07:17 07:17 07:17 Hemoglobin A1c 5.8 Triglycerides 118 D Cholesterol 146 LDL Cholesterol Direct 69 HDL Cholesterol 61 Homocysteine 14.7 Free T4 1.21 TSH 3rd Generation 0.46 Prolactin 16.5 Assessment & Plan - Assessment and Plan (Free Text) Assessment: 73 yo man with history of PAF, SSS, tachybrady syndrome, pulmonary HTN, systemic HTN who has been admitted with syncope and tachybrady syndrome. Tachybrady syndrome: Place pacemaker to allow for escalation of rate control medicatons and rhythm control medications PAF: Broke through low dose (40 once daily) sotalol. Had skin exanthm on amiodarone. Will go back to sotalol 80 bid after pacemaker placement. Ablation remains an option down the road. HTN: review after initiation of sotalol Pulmonary HTN: stable
[2018-08-13] MEDS ORDERED: ceFAZolin IV 1 gm in Dextrose 1 GM/50 ML BAG IVPB ONE (12:00)
[2018-08-13] MEDS ORDERED: Midazolam 2 MG/2 ML VIAL ONE ×3 (12:12→12:53)
[2018-08-13] MEDS ORDERED: Lidocaine Hydrochloride 10 ML INJ ONE (12:28)
--- NOTE | 2018-08-13 12:44 | CON ---
DATE: 08/11/2018 ATTENDING PHYSICIAN: Nasrin Irwin MD LOCATION: The patient's room number is 621, bed A. REASON FOR THE CONSULTATION: Syncopal attack. 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 From neurological point of view, I was called in to evaluate him for further management. HISTORY OF PRESENT ILLNESS: Mr. Dinh Irwin is a normally built right-handed male, in usual state of health, woke up on Saturday morning, normal following his usual routine walking exercise. On back home, he felt lightheaded. He tried to grab the object to save him. It was too late for him. He fell backwards and hit his head. The whole episode was not associated with loss of consciousness. No similar episodes happened in the past. This episode not associated with visual or bulbar dysfunction. No focal dysfunction or involuntary movements. No bowel or bladder incontinence at the scene. Following this episode, he did not have any headache. No any other focal findings including shortness of breath, chest pain, and exertional dyspnea. SIGNIFICANT PAST MEDICAL HISTORY: Including atrial fibrillation, been on warfarin in the past followed by [facility] at present. Hypertension, dyslipidemia. PERSONAL HISTORY: Social drinking. History of smoking in the past. ALLERGIES: ALLERGIC TO AMIODARONE AND AMLODIPINE. REVIEW OF SYSTEMS: A 12-point system being reviewed. From neuro, new episode of syncopal attack. PHYSICAL EXAMINATION: VITAL SIGNS: Blood pressure 114/66, mean artery pressure of 82, respiratory rate 18, temperature 98.4, pulse rate irregularly irregular. NECK: Supple. No carotid bruits. HEART: Sounds irregularly irregular. No murmur. EXTREMITIES: No edema in legs. NEUROLOGICAL EXAMINATION: Mental status examination: He is awake, alert, oriented to person, place, and time. Speech is clear. Naming, repetition, fluency, comprehension all within normal limits. Cranial nerve examination: Visual mckeon intact. Pupils reactive to light. Extraocular movement normal. No nystagmus. No facial sensory deficit. No facial asymmetry. Hearing is normal. Tongue is midline. Good gag. Motor examination: Outstretched hand with eyes closed, no drift noted. Power is symmetric on either side. Deep tendon reflexes, biceps, brachialis, triceps trace, both knees are 1+, both ankles are absent,. Plantars are downgoing. Sensory examination: No cortical sensory loss, dermatomal sensory loss. Mild sensory motor neuropathy noted. On outstretched hand with eyes closed, involuntary tremor noted in the right upper extremities. On finger-nose testing, on cerebellar examination, significant dysmetria. On finger-nose testing, more pronounced on the left than his right side. Gait, Romberg sign negative. Tandem is poor walking. CONCLUSION: On reviewing his history in the medical records and from him, history suggestive of possible vertebrobasilar insufficiency. However, other possible causes including vasovagal attack, nonconvulsive seizures or cardiac causes should be ruled out. His examination is also consistent with mid as well as appendicular dysfunction. This is probably related to preexisting condition, which may be spinocerebellar degeneration versus REPATCHER territory ischemic process space-occupying lesion or cervical pathology. WORKUP: WBC 7.2, hemoglobin 14.2, hematocrit 42.5, platelet 441. PT 14.2, INR 1.3, PTT 37. Sodium 137, potassium 4.4, chloride 100, bicarbonate 26, BUN 16, creatinine 1.3, GFR 60, AST 60, BNP 1420. Total protein 8.5. CT of the head, no acute pathology is noted, microangiopathy changes seen. RECOMMENDATIONS: 1. MRI of the brain without gadolinium to rule out any REPATCHER territory ischemic process. 2. Carotid Doppler already done with result should be reviewed. 3. EEG to rule out any paroxysmal activities. 4. Following workup, if significant small vessel disease, the patient can be benefited with adding low dose of antiplatelets with Eliquis at present. The patient definitely need for his mid as well as appendicular dysfunction, which can be followed by me during his hospitalization. Oskar Newman MD
--- NOTE | 2018-08-13 14:48 | RAD ---
Date of service: 08/13/2018 HISTORY: S/P Pacemaker Insertion COMPARISON: 08/11/2018 FINDINGS: LUNGS: The lungs are well inflated and clear. PLEURA: No pleural effusions or pneumothorax. CARDIOVASCULAR: There is interval placement of left-sided dual lead transvenous permanent pacing device with leads terminating in the right atrium and right ventricle. The heart is normal in size. There are aortic atherosclerotic calcifications present. OSSEOUS STRUCTURES: Within normal limits for the patient's age. VISUALIZED UPPER ABDOMEN: Normal. OTHER FINDINGS: None. IMPRESSION: No acute findings. Interval placement of left-sided dual lead permanent pacing device with leads terminating in the right atrium and right ventricle.
--- NOTE | 2018-08-13 16:37 | PCM.RRT ---
<Jen Campo - Last Filed: 08/13/18 20:23> SHUFFLE BOARD OPERATOR Nurses Assessment - Situation Date: 08/13/18 Time SHUFFLE BOARD OPERATOR was called: 16:20 SHUFFLE BOARD OPERATOR Responder Arrival Time:: 16:22 SHUFFLE BOARD OPERATOR Location:: Med/Surg Room Number: 661A SHUFFLE BOARD OPERATOR Called By: Patient/Family Request - IV IV Inserted during SHUFFLE BOARD OPERATOR?: No I.Reason for SHUFFLE BOARD OPERATOR - A) Acute Change in Patient: (Select all that apply): Staff member or family is worried about patient - Neurological Status (Select all that apply): Alert, Oriented, Verbal, Follows Commands - Respiratory Oxygen Delivery Method: Room Air - Constitutional Appears: Well, No Acute Distress - Head Head Exam: ATRAUMATIC, NORMOCEPHALIC - Eyes Eye Exam: EOMI, PERRL - Respiratory Exam Respiratory Exam: NORMAL BREATHING PATTERN - Cardiovascular Exam Cardiovascular Exam: Tachycardia, +S1, +S2 - GI/Abdominal Exam GI & Abdominal Exam: Soft, Normal Bowel Sounds. absent: Tenderness - Neurological Exam Neurological Exam: Alert, Awake, Oriented x3. absent: Motor Sensory Deficit - Extremities Exam Extremities Exam: absent: Calf Tenderness, Pedal Edema Plan - Assessment of Findings&Treatment Plan Rapid response called after noted that patient became diffusely weak, appeared pale to after he walked to the bathroom today status post pacemaker placement with Dr. Grigsby earlier today Patient received Versed and Fentanyl prior to procedure He was back to baseline mental status immediately after On exam, pacemaker site intact, no bleeding from site. Patient noted to be tachycardic 120s on monitor On exam, patient is alert and oriented x3, neurologically intact EKG stat and KASEY ordered Patient's BP 125/74 HR 120 Post EKG unchanged from EKG after procedure, Atrial fib/flutter 118 KASEY panel negative Spoke to Dr. Grigsby who requested Cardizem 30mg QID Dr. Irwin made aware. Jen Campo, PGY1 <Yesica Armando V - Last Filed: 08/14/18 22:45> SHUFFLE BOARD OPERATOR Nurses Assessment - Vital Signs Vital Signs: Rapid Response Vital Sign Blood Pressure 125/74 Pulse Rate 113 Respiratory Rate 20 Temperature 97.4 F Oxygen Saturation 99 Attending/Attestation - Attestation I have personally seen and examined this patient.: Yes I have fully participated in the care of the patient.: Yes I have reviewed all pertinent clinical information, including history, physical exam and plan: Yes Notes (Text): This is a late computer entry for Aug 13 2018. Rapid response called for syncopal episode witnessed. 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 Pale hypotensive and passing out. He did not hit his head he was assisted by nursing staff back into bed. I did speak with him he did not feel any chest pain or palpitations prior to the syncopal episode. He just recently got his pacemaker placed about half hour ago with EP. On telemetry he noted only tachycardia. Patient speaking clearly no slurred speech neurologically intact pulses intact vital signs stable no noted hypotension. Patient is off his blood thinner and heparin drip prior to the procedure. Pacemaker. I did speak with Dr. Moreira of the proximal the event noting likely vasovagal syncope. The resident did speak with the EP doctor does wish as well given that patient recently completed pacemaker placement. EP recommended for low-dose Cardizem at 30 mg 4 times daily. EKG and will be following proper spine noted for atrial flutter.
--- NOTE | 2018-08-13 16:52 | CP.PCM.PN ---
<Yovanny Simmons - Last Filed: 08/13/18 19:31> Subjective - Date & Time of Evaluation Date of Evaluation: 08/13/18 Time of Evaluation: 10:55 - Subjective Subjective: PGY2 Cardio Note for Dr. Gamboa Patient was seen and examined at bedside, in no acute distress. Patient is scheduled for a pacemaker placement by Dr. Grigsby-public records officer later this afternoon. Patient does not report any allergic reactions to his medications, previously patient developed hives on his arms, legs and back following treatment with amiodarone. Patient is doing well, denies any CP, SOB, palpitations, n/v/d, changes in vision, changes in hearing, dizziness, fatigue, weakness, LE edema, or LE pain. Objective - Vital Signs/Intake and Output Vital Signs (last 24 hours): Temp Pulse Resp BP Pulse Ox 97.7 F 100 H 20 122/71 98 08/13/18 07:00 08/13/18 07:56 08/13/18 07:00 08/13/18 07:00 08/13/18 07:00 Intake and Output: 08/13/18 08/13/18 06:59 18:59 Intake Total 480 Balance 480 - Medications Medications: Current Medications Apixaban (Eliquis) 5 mg PO BID [facility] Last Admin: 08/12/18 18:09 Dose: 5 mg Diltiazem HCl (Cardizem) 60 mg PO Q8H [facility] Last Admin: 08/13/18 10:38 Dose: 60 mg Diltiazem HCl (Cardizem) 30 mg PO QID [facility] Heparin Sodium (Porcine) (Heparin) 5,000 units SC Q8 [facility] Last Admin: 08/13/18 10:39 Dose: 5,000 units Gentamicin Sulfate 80 mg/ (Sodium Chloride) 102 mls @ 100 mls/hr IVPB Q8H [facility]; Protocol Losartan Potassium (Cozaar) 100 mg PO DAILY [facility] Last Admin: 08/13/18 10:38 Dose: 100 mg - Labs Labs: 08/11/18 12:10 08/11/18 12:10 PT 14.2 SECONDS (9.7-12.2) H 08/11/18 12:10 INR 1.3 08/11/18 12:10 APTT 37.0 SECONDS (21-34) H 08/11/18 12:10 - Constitutional Appears: Non-toxic, No Acute Distress - Head Exam Head Exam: ATRAUMATIC, NORMOCEPHALIC - Eye Exam Eye Exam: Normal appearance - Neck Exam Neck Exam: Normal Inspection. absent: Lymphadenopathy - Respiratory Exam Respiratory Exam: Clear to Ausculation Bilateral, NORMAL BREATHING PATTERN. absent: Accessory Muscle Use, Rales, Rhonchi, Wheezes, Respiratory Distress - Cardiovascular Exam Cardiovascular Exam: +S1 Additional comments: Tachy-Godwin on tele monitor - GI/Abdominal Exam GI & Abdominal Exam: Soft, Normal Bowel Sounds. absent: Distended, Firm, Guarding, Rigid - Extremities Exam Extremities Exam: absent: Calf Tenderness - Neurological Exam Neurological Exam: Alert, Awake, Oriented x3 - Psychiatric Exam Psychiatric exam: Normal Affect, Normal Mood - Skin Skin Exam: Dry, Warm Assessment and Plan - Assessment and Plan (Free Text) Plan: A Fib Tachy Godwin syndrome Non Obstructive CAD Normal EF Patient had successful placement of pacemaker with Dr. Grigsby today. After pacemaker placement, patient had rapid called due to becoming diffusely weak and pale while in the bathroom with . Suspected adverse reaction from anesthesia per EMERGENCY DEPARTMENT AIDE note. Patient stable. Case discussed with Dr. Cooper Simmons PGY2 <Rick Gamboa - Last Filed: 08/14/18 06:34> Objective - Vital Signs/Intake and Output Vital Signs (last 24 hours): Temp Pulse Resp BP Pulse Ox 97.6 F 161 H 20 115/81 98 08/14/18 04:35 08/14/18 06:20 08/14/18 06:20 08/14/18 06:20 08/14/18 06:20 Intake and Output: 08/13/18 08/14/18 18:59 06:59 Intake Total 480 Balance 480 - Medications Medications: Current Medications Apixaban (Eliquis) 5 mg PO BID [facility] Last Admin: 08/12/18 18:09 Dose: 5 mg Diltiazem HCl (Cardizem) 60 mg PO Q8H [facility] Last Admin: 08/13/18 10:38 Dose: 60 mg Diltiazem HCl (Cardizem) 30 mg PO QID [facility] Last Admin: 08/13/18 21:52 Dose: 30 mg Diltiazem HCl (Cardizem Cd) 180 mg PO DAILY [facility] Heparin Sodium (Porcine) (Heparin) 5,000 units SC Q8 [facility] Last Admin: 08/13/18 21:53 Dose: 5,000 units Losartan Potassium (Cozaar) 100 mg PO DAILY [facility] Last Admin: 08/13/18 10:38 Dose: 100 mg Losartan Potassium (Cozaar) 100 mg PO DAILY [facility] Oiguk-2-Loko Ethyl Esters (Lovaza) 4 gm PO DAILY [facility] Sotalol HCl (Betapace) 80 mg PO BID [facility] - Labs Labs: 08/11/18 12:10 08/11/18 12:10 PT 14.2 SECONDS (9.7-12.2) H 08/11/18 12:10 INR 1.3 08/11/18 12:10 APTT 37.0 SECONDS (21-34) H 08/11/18 12:10 Assessment and Plan - Assessment and Plan (Free Text) Plan: Patient seen and evaluated personally by me. Plan of care d/w the Resident and as documented
[2018-08-13 17:27] LABS: CK-MB 3.37 ng/mL (0.0-3.38); TROPONIN I 0.08 ng/mL (0.00-0.120)
[2018-08-13] MEDS ORDERED: ceFAZolin IV 2 gm in Dextrose 2 GM/50 ML BAG IVPB SCH (20:00)
--- NOTE | 2018-08-13 21:45 | PCM.OP ---
Operative Report - Operative Report Date of Surgery/Procedure: 08/13/18 Time of Surgery/Procedure: 13:00 Surgeon: Seb Car Dropper: None Anesthesia/Sedation: Monitored care Pre-Operative Diagnosis: Tachybrady syndrome Post-Operative Diagnosis: Tachybrady syndrome Indication for Surgery: syncope and tachybrady syndrome Operative Findings: PSA as reported Procedure/Operation Description: DDD PPM insertion Estimated Blood Loss: 40 cc Complications: None Discharge & Condition: stable
--- NOTE | 2018-08-14 03:07 | CP.PCM.PN ---
Subjective - Date & Time of Evaluation Date of Evaluation: 08/13/18 Time of Evaluation: 08:00 - Subjective Subjective: remains in afib with Tachy-Nichelle presentation mild lightheadedness Case discussed with Dr Grigsby Will schedule PPM implant today Objective - Vital Signs/Intake and Output Vital Signs (last 24 hours): Temp Pulse Resp BP Pulse Ox 98.4 F 71 20 115/70 99 08/13/18 23:00 08/13/18 23:30 08/13/18 23:00 08/13/18 23:00 08/13/18 23:00 Intake and Output: 08/13/18 08/14/18 18:59 06:59 Intake Total 480 Balance 480 - Medications Medications: Current Medications Apixaban (Eliquis) 5 mg PO BID [facility] Last Admin: 08/12/18 18:09 Dose: 5 mg Diltiazem HCl (Cardizem) 60 mg PO Q8H [facility] Last Admin: 08/13/18 10:38 Dose: 60 mg Diltiazem HCl (Cardizem) 30 mg PO QID [facility] Last Admin: 08/13/18 21:52 Dose: 30 mg Diltiazem HCl (Cardizem Cd) 180 mg PO DAILY [facility] Heparin Sodium (Porcine) (Heparin) 5,000 units SC Q8 [facility] Last Admin: 08/13/18 21:53 Dose: 5,000 units Losartan Potassium (Cozaar) 100 mg PO DAILY [facility] Last Admin: 08/13/18 10:38 Dose: 100 mg Losartan Potassium (Cozaar) 100 mg PO DAILY [facility] Qeepa-4-Bzck Ethyl Esters (Lovaza) 4 gm PO DAILY [facility] Sotalol HCl (Betapace) 80 mg PO BID [facility] - Labs Labs: 08/11/18 12:10 08/11/18 12:10 PT 14.2 SECONDS (9.7-12.2) H 08/11/18 12:10 INR 1.3 08/11/18 12:10 APTT 37.0 SECONDS (21-34) H 08/11/18 12:10 - Constitutional Appears: Non-toxic - Head Exam Head Exam: NORMAL INSPECTION - Eye Exam Eye Exam: absent: Scleral icterus - Neck Exam Neck Exam: Full ROM - Respiratory Exam Respiratory Exam: Clear to Ausculation Bilateral - Cardiovascular Exam Cardiovascular Exam: REGULAR RHYTHM - GI/Abdominal Exam GI & Abdominal Exam: Soft - Extremities Exam Extremities Exam: absent: Pedal Edema - Neurological Exam Neurological Exam: Alert, Oriented x3 Assessment and Plan - Assessment and Plan (Free Text) Assessment: Symptomatic Tachy-nichelle syndrome presenting as syncope Chronic PAF HTN Severe Pulmonary HTN Non-obstructive CAD with nL LV Plan: Eliquis, heparin held Ok for PPM Family aware
--- NOTE | 2018-08-14 03:31 | CARD ---
APPROVED REPORT Date of service: 08/11/2018 EKG Measurement Heart [id number] <Conclusion> Normal sinus rhythm Possible Inferior infarct, age undetermined Abnormal ECG
[2018-08-14 08:17] VITALS: PULSE 167
[2018-08-14] MEDS ORDERED: Acetaminophen 650mg/20.3ml solution UD PO PRN (09:00)
[2018-08-14] MEDS ORDERED: ceFAZolin 1 gm in NS 1 GM/100 ML BAG IVPB ONE (09:00)
[2018-08-14] MEDS ORDERED: Digoxin 500 mcg/2ml (0.5 mg/2ml) Inj IVP ONE (09:00)
--- NOTE | 2018-08-14 09:10 | OP ---
PROCEDURE DATE: 08/13/2018 PROCEDURE: Pacemaker implantation. PROCEDURE PERFORMED BY: Berlin Grigsby MD COMPLICATIONS: None. ESTIMATED BLOOD LOSS: 30 mL. ANESTHESIA: Monitored care. MACHINE SET UP OPERATOR: None. SPECIMEN: None. REFERRING PROVIDERS: 1. Caleb Trinidad MD and Rick Gamboa MD 2. Nasrin Irwin MD PREOPERATIVE DIAGNOSES: Tachybrady syndrome, atrial fibrillation, and syncope. POSTOPERATIVE DIAGNOSES: Tachybrady syndrome, atrial fibrillation, and syncope. CLINICAL HISTORY: This is a very pleasant 73-year-old man with a cardiovascular history significant for paroxysmal atrial fibrillation, hypertension, and hyperlipidemia. He has had atrial fibrillation for many years. He took sotalol for many years without incident. He was prescribed 80 mg but was really only taking 40 mg once a day because the full dose caused excessive bradycardia and tiredness. He was admitted about two months ago with rapid symptomatic atrial fibrillation and was transitioned to amiodarone at that time. As an outpatient, he had a skin exanthem with amiodarone and was changed to Cardizem low dose. While taking Cardizem low dose, he has had rapid heart rate and also has had syncope. He now presents for pacemaker implantation due to tachybrady syndrome. DESCRIPTION OF PROCEDURE: The patient was brought to the cardiac electrophysiology laboratory and prepared in a standard fashion. Continuous blood pressure, heart rate, electrocardiogram, and pulse oximetry monitored throughout the procedure. Area over the left chest was anesthetized with local injection of 2% lidocaine, and a #10 blade was used to make a 2-cm incision in the deltopectoral groove. Careful blunt dissection and electrocautery was performed to make a pocket for the pacemaker. Percutaneous wire was placed by the cephalic vein to the right atrium. A second percutaneous wire was advanced by cephalic vein to the right atrium. An introducer sheath was advanced over the first guidewire and active fixation pacing lead was then advanced to the distal interventricular septum where appropriate pacing and sensing thresholds were obtained. A second introducer sheath was advanced over the second guidewire and active fixation pacing lead was advanced under fluoroscopic guidance through the right atrium appendage where appropriate pacing and sensing thresholds were obtained. Individual silk ties were used to secure the introducer sheath to the underlying fascia. The pocket was irrigated liberally with bacitracin-containing saline solution. Leads were connected to the pacemaker generator which was placed into the pocket and secured to the underlying fascia with 0 silk stitch. Deep subcutaneous tissue was closed with interrupted stitches of 2-0 Vicryl. Superficial subcutaneous tissue was closed with interrupted stitches of 3-0 Vicryl. Subcuticular tissue was closed with a running stitch of 4-0 Monocryl. Dermabond was applied to incision as well as a pressure dressing. The patient tolerated the procedure well. There were no complications. FINDINGS: 1. Device is an [employer] [place] [employer] [employer], serial # [id number]. 2. The atrial lead is a [employer] [employer], 52 cm, serial #[id number]. 3. The ventricular lead is [employer], 59 cm, serial #[id number]. 4. Pacing and sensing analyzer measurement mV, impedance 570 ohms. Ventricular electrogram is 13 mV, impedance is 960 ohms. Capillary pressure is 1.2 volts at 0.5 millisecond. CONCLUSION: Successful dual chamber pacemaker via cephalic vein access. PLAN: 1. Resume sotalol at 80 mg twice a day dosing. 2. Resume anticoagulation on 08/15/2018. 3. Routine pacemaker followup. Berlin Grigsby MD
[2018-08-14] MEDS ORDERED: diltiaZEM 180 mg/24 Hours CD Cap PO SCH (10:00)
[2018-08-14] MEDS ORDERED: Omega-3-Acid Ethyl Esters 1 GM Cap PO SCH (10:00)
--- NOTE | 2018-08-14 10:59 | CP.PCM.CON ---
<Amy Howard - Last Filed: 08/14/18 11:34> History of Present Illness - History of Present Illness History of Present Illness: GI Fellow PGY5 Consult Note This is a 73 year old male with PMHx of Paroxysmal A-fib (on eliquis) w/ Godwin- Tachy, hypertension, hyperlipidemia, presents to ED s/p syncopal episode. Patient states that he was feeling dizzy after taking his medication and then fell on the left side of his head. Pt was admitted had PPM put in for tachy/godwin and post procedure had a vasovagal episode of during a BM. Pt reports he has constipation with intermittent rectal bleeding on wiping toilet paper. GI was consulted for rectal bleeding this am, fresh blood in toilet bowel after a hard BM. Pt's HR is uncontrolled this am 160s and now controlled. Pt had a colonoscopy in 2013 with colon polyps path +tubular adenomas and diverticulosis, internal hemorrhoids. ROS: A 12pt ROS was negative except as above PMH: As stated in HPI Surgical Hx: Appendectomy, Sofie-Lap Family Hx: 1 sis with Colon ca in remission Social HX: former smoker- stopped 45years ago, +social drinker, no illicit drug use Past Patient History - Infectious Disease Hx of Infectious Diseases: None - Past Medical History & Family History Past Medical History?: Yes - Past Social History Smoking Status: Former Smoker - CARDIAC Hx Atrial Fibrillation: Yes Hx Cardia Arrhythmia: Yes Hx Hypercholesterolemia: Yes Hx Hypertension: Yes - PULMONARY Hx Respiratory Disorders: No - NEUROLOGICAL Hx Neurological Disorder: No - HEENT Hx HEENT Problems: No Other/Comment: seasonal allergies - RENAL Hx Chronic Kidney Disease: No - ENDOCRINE/METABOLIC Hx Endocrine Disorders: Yes Other/Comment: HX of recurrent hyponatremia - HEMATOLOGICAL/ONCOLOGICAL Hx Blood Disorders: No - INTEGUMENTARY Hx Dermatological Problems: No - MUSCULOSKELETAL/RHEUMATOLOGICAL Hx Arthritis: Yes - GASTROINTESTINAL Hx Gastrointestinal Disorders: Yes Hx Gastroesophageal Reflux: Yes Other/Comment: cholelithiasis - GENITOURINARY/GYNECOLOGICAL Hx Genitourinary Disorders: No - PSYCHIATRIC Hx Anxiety: Yes Hx Substance Use: No - SURGICAL HISTORY Hx Appendectomy: Yes Hx Cholecystectomy: Yes - ANESTHESIA Hx Anesthesia: Yes Hx Anesthesia Reactions: No Hx Malignant Hyperthermia: No Meds Allergies/Adverse Reactions: Allergies Allergy/AdvReac Type Severity Reaction Status Date / Time amiodarone Allergy Verified 08/11/18 11:46 amlodipine Allergy Verified 07/29/18 12:52 - Medications Medications: Current Medications Acetaminophen (Tylenol 650mg/20.3ml Solution Ud) 1,000 mg PO Q6H PRN PRN Reason: pain Apixaban (Eliquis) 5 mg PO BID [facility] Last Admin: 08/14/18 09:46 Dose: 5 mg Diltiazem HCl (Cardizem) 90 mg PO Q6 [facility] Docusate Sodium (Colace) 100 mg PO BID [facility] Last Admin: 08/14/18 10:30 Dose: 100 mg Tfjya-9-Yygx Ethyl Esters (Lovaza) 4 gm PO DAILY [facility] Last Admin: 08/14/18 09:48 Dose: 4 gm Pantoprazole Sodium (Protonix Ec Tab) 40 mg PO DAILY [facility] Polyethylene Glycol (Miralax) 17 gm PO BID [facility] Sotalol HCl (Betapace) 80 mg PO BID [facility] Last Admin: 08/14/18 09:00 Dose: 80 mg Physical Exam - Constitutional Appears: Non-toxic, No Acute Distress - Head Exam Head Exam: ATRAUMATIC, NORMAL INSPECTION, NORMOCEPHALIC - Eye Exam Eye Exam: EOMI, Normal appearance, PERRL - ENT Exam ENT Exam: Mucous Membranes Moist, Normal Exam - Neck Exam Neck exam: Positive for: Full Rom, Normal Inspection - Respiratory Exam Respiratory Exam: Clear to Auscultation Bilateral, NORMAL BREATHING PATTERN - Cardiovascular Exam Cardiovascular Exam: REGULAR RHYTHM, RRR, +S1, +S2 - GI/Abdominal Exam GI & Abdominal Exam: Normal Bowel Sounds, Soft. absent: Distended, Guarding, Organomegaly, Tenderness - Rectal Exam Additional comments: small internal hemorrhoids, no blood, stool in rectal vault - Extremities Exam Extremities exam: Positive for: full ROM, normal inspection - Back Exam Back exam: FULL ROM, NORMAL INSPECTION - Neurological Exam Neurological exam: Alert, Oriented x3 - Psychiatric Exam Psychiatric exam: Normal Affect, Normal Mood - Skin Skin Exam: Dry, Intact, Normal Color, Warm Results - Vital Signs Recent Vital Signs: Last Vital Signs Temp 97.9 F 08/14/18 07:15 Pulse 167 H 08/14/18 08:39 Resp 20 08/14/18 07:15 BP 118/80 08/14/18 07:15 Pulse Ox 99 05/09/19 07:15 - Labs Result Diagrams: 08/11/18 12:10 08/11/18 12:10 Labs: Laboratory Results - last 24 hr 08/13/18 16:58 Total Creatine Kinase 1172 H CK-MB (Mass) 3.37 Troponin I 0.0800 Assessment & Plan - Assessment and Plan (Free Text) Assessment: 1. Rectal bleeding 2. Afib on OAC 3. s/p PPM 4. Hx of colon polyps 5. Gastritis 6. GERD 7. Constipation Plan: -Continue supportive care with current cardiac issues -No active bleeding at this time, rectal exam negative -Hgb stable form 08/11, will repeat CBC today and tomorrow -If Hgb stable, no plan for endoscopic evaluation at this time -If acute drop in Hgb will re-evaluate -Clear liquid diet at this time, if Hgb stable can change to regular diet -Miralax for constipation -PPI -Further cardiac management with Cardiology -Pt will need outpatient elective colonoscopy with Dr. Carvajal with history of colon ployps and rectal bleeding -Will continue to follow pt closely <Alex Carter - Last Filed: 08/14/18 11:41> Meds - Medications Medications: Current Medications Acetaminophen (Tylenol 650mg/20.3ml Solution Ud) 1,000 mg PO Q6H PRN PRN Reason: pain Apixaban (Eliquis) 5 mg PO BID [facility] Last Admin: 08/14/18 09:46 Dose: 5 mg Diltiazem HCl (Cardizem) 90 mg PO Q6 [facility] Docusate Sodium (Colace) 100 mg PO BID [facility] Last Admin: 08/14/18 10:30 Dose: 100 mg Xnmxn-7-[id number] Ethyl Esters (Lovaza) 4 gm PO DAILY [facility] Last Admin: 08/14/18 09:48 Dose: 4 gm Pantoprazole Sodium (Protonix Ec Tab) 40 mg PO DAILY [facility] Polyethylene Glycol (Miralax) 17 gm PO BID [facility] Sotalol HCl (Betapace) 80 mg PO BID [facility] Last Admin: 08/14/18 09:00 Dose: 80 mg Results - Vital Signs Recent Vital Signs: Last Vital Signs Temp 97.9 F 08/14/18 07:15 Pulse 167 H 08/14/18 08:39 Resp 20 08/14/18 07:15 BP 118/80 08/14/18 07:15 Pulse Ox 99 08/14/18 07:15 - Labs Result Diagrams: 08/11/18 12:10 08/11/18 12:10 Labs: Laboratory Results - last 24 hr 08/13/18 16:58 Total Creatine Kinase 1172 H CK-MB (Mass) 3.37 Troponin I 0.0800 Attending/Attestation - Attestation I have personally seen and examined this patient.: Yes I have fully participated in the care of the patient.: Yes I have reviewed all pertinent clinical information: Yes Notes (Text): 08/14/18 11:37 Patient seen and examined with GI Fellow. Rectal bleeding noted with straining while on DOAC for afib. S/P pacemaker insertion yesterday. Agree with stool softeners and Miralax. Check CBC today and if stable will defer GI workup to Dr Carvajal as an ou tpatient given bleeding and h/o polyps 2013. Case discussed with Dr Gamboa as well. No plans for work up currently in the absence of overt bleeding and drop in H/H. Continue current diet if Hgb stable.
--- NOTE | 2018-08-14 11:00 | RAD ---
Date of service: 08/14/2018 PROCEDURE: CHEST RADIOGRAPH, 1 VIEW HISTORY: post pacemaker COMPARISON: 08/13/2018 FINDINGS: LUNGS: Clear. PLEURA: No pneumothorax or pleural fluid seen. CARDIOVASCULAR: No aortic atherosclerotic calcification present. Normal heart size. Permanent pacemaker. No congestive change. OSSEOUS STRUCTURES: No significant abnormalities. VISUALIZED UPPER ABDOMEN: Normal. OTHER FINDINGS: None. IMPRESSION: No active disease.
[2018-08-14] MEDS ORDERED: POLYETHYLENE GLYCOL 3350 17 GM/Dose PACKET PO SCH (11:30)
[2018-08-14] MEDS ORDERED: Pantoprazole 40 mg EC Tab PO SCH (11:30)
--- NOTE | 2018-08-14 12:32 | PN ---
DATE: 08/14/2018 TIME OF EVALUATION: 07:05 a.m. NEUROLOGICAL PROBLEM: Possible cardiac arrhythmia manifesting near syncopal attack. PHYSICAL EXAMINATION: GENERAL: The patient is comfortably lying down except complaining of left shoulder pain. Otherwise, no new episodes had happened except some episode of rapid response today was called in following pacemaker placement. The patient is stable at present. Mentation is normal. Moving all four extremities against gravity. VITAL SIGNS: Blood pressure 115/81, mean arterial pressure of 92, respiratory rate 18, pulse rate 161, temperature 97.6. Rest of the examination is unchanged compared with previous examination. LABORATORY DATA: Electroencephalogram has been reviewed, this is normal for his age. No focal slowing or paroxysmal activities are noted. Recent blood workup, creatinine kinase 1172. Thyroid functions are normal. Lipid profile is also normal. RECOMMENDATIONS: The patient is neurologically stable, can be discharged if medically stable from cardiac point of view. The patient does have mid as well as appendicular dysfunction, which is unexplained at present which probably is a pre-existing condition, that has to be worked up as outpatient. The patient will be followed while he is in the hospital, otherwise, we will be seeing him as outpatient. Oskar Newman MD
[2018-08-14 14:00] LABS: HEMOGLOBIN 13.1 g/dL (12.0-18.0); MEAN CELL VOLUME 92.9 fL (80.0-94.0); MEAN CORPUSCULAR HEMOGLOBIN 31.1 pg (27.0-31.0); MEAN CORPUSCULAR HGB CONC 33.5 g/dL (33.0-37.0); MEAN PLATELET VOLUME 6.7 fL (7.2-11.7); RBC 4.2 Mil/uL (4.40-5.90); RED CELL DISTRIBUTION WIDTH 12.7 % (11.5-14.5); WHITE BLOOD COUNT 9.7 K/uL (4.8-10.8)
[2018-08-14 14:06] LABS: INR 1.2
[2018-08-14 16:03] VITALS: BP 114/76; PULSE 81; TEMP 97.8; O2SAT 100
--- NOTE | 2018-08-14 16:55 | CARD ---
APPROVED REPORT Date of service: 08/13/2018 EKG Measurement Heart [id number] <Conclusion> Atrial flutter with variable AV block Inferior infarct, age undetermined Abnormal ECG
--- NOTE | 2018-08-15 07:54 | EEG ---
DATE: 08/13/2018 This is a 16-channel electroencephalogram of an awake and drowsy adult. During the study photic stimulation was performed. Hyperventilation was not performed. The resting electroencephalogram consists of a 20-30 mV, 8-11 Hz high theta mixed with alpha activities noted in the parietal and occipital leads. Later these activities are well organized to form alpha activities in the background rhythm particularly in the parietal and occipital leads. Anterior pulse activities are composed with 2-3 Hz of delta activities seen. Some movement artifact contaminated the background rhythm. The photic stimulation did not evoke driving response noted at 2-20 Hz. IMPRESSION: This is a normal electroencephalogram of an awake and drowsy adult. During the study, neither electroencephalographic paroxysmal activities nor focal slowing noted. Oskar Newman MD
--- NOTE | 2018-08-16 16:14 | CARD ---
APPROVED REPORT Date of service: 08/13/2018 EKG Measurement Heart [id number] <Conclusion> Atrial fibrillation with RVR Inferior infarct, age undetermined Abnormal ECG
--- NOTE | 2018-08-18 22:44 | CP.PCM.DIS ---
Provider - Provider Date of Admission: 08/11/18 16:07 Attending physician: Nasrin Irwin MD Primary care physician: Nasrin Irwin MD Consults: 08/11/18 18:24 Cardiology Consult Routine Comment: Consulting Provider: Berlin Stroud Consulting Physician: Berlin Stroud Reason for Consult: syncope 08/12/18 05:38 Physician Consult Routine Comment: Consulting Provider: Oskar Newman Consulting Physician: Oskar Newman Reason for Consult: SYNCOPE WITH HEAD TRAUMA Additional Comments: 08/12/18 07:55 Physician Consult Routine Comment: Consulting Provider: Rick Gamboa Consulting Physician: Rick Gamboa Reason for Consult: second opinion 08/14/18 09:59 Gastroenterology Consult Routine Comment: Consulting Provider: Clemente Carvajal Consulting Physician: Clemente Carvajal Reason for Consult: rectal bleed Time Spent in preparation of Discharge (in minutes): 35 Diagnosis - Discharge Diagnosis (1) Syncope and collapse Status: Acute (2) Tachy-nichelle syndrome Status: Acute (3) Pulmonary hypertension Status: Acute (4) Atrial fibrillation Status: Chronic Priority: Medium Hospital Course - Lab Results Lab Results: Most Recent Lab Values WBC 9.7 K/uL (4.8-10.8) 08/14/18 13:53 RBC 4.20 Mil/uL (4.40-5.90) L 08/14/18 13:53 Hgb 13.1 g/dL (12.0-18.0) 08/14/18 13:53 Hct 39.0 % (35.0-51.0) 08/14/18 13:53 MCV 92.9 fL (80.0-94.0) 08/14/18 13:53 MCH 31.1 pg (27.0-31.0) H 08/14/18 13:53 MCHC 33.5 g/dL (33.0-37.0) 08/14/18 13:53 RDW 12.7 % (11.5-14.5) 08/14/18 13:53 Plt Count 470 K/uL (130-400) H 08/14/18 13:53 MPV 6.7 fL (7.2-11.7) L 08/14/18 13:53 Neut % (Auto) 58.2 % (50.0-75.0) 08/11/18 12:10 Lymph % (Auto) 27.1 % (20.0-40.0) 08/11/18 12:10 Williamson % (Auto) 10.9 % (0.0-10.0) H 08/11/18 12:10 Eos % (Auto) 2.3 % (0.0-4.0) 08/11/18 12:10 Baso % (Auto) 1.5 % (0.0-2.0) 08/11/18 12:10 Neut # (Auto) 4.2 K/uL (1.8-7.0) 08/11/18 12:10 Lymph # (Auto) 2.0 K/uL (1.0-4.3) 08/11/18 12:10 Williamson # (Auto) 0.8 K/uL (0.0-0.8) 08/11/18 12:10 Eos # (Auto) 0.2 K/uL (0.0-0.7) 08/11/18 12:10 Baso # (Auto) 0.1 K/uL (0.0-0.2) 08/11/18 12:10 PT 13.0 SECONDS (9.7-12.2) H 08/14/18 13:53 INR 1.2 08/14/18 13:53 APTT 37.0 SECONDS (21-34) H 08/11/18 12:10 Sodium 137 mmol/L (132-148) 08/11/18 12:10 Potassium 4.4 mmol/L (3.6-5.2) 08/11/18 12:10 Chloride 100 mmol/L (98-107) 08/11/18 12:10 Carbon Dioxide 26 mmol/L (22-30) 08/11/18 12:10 Anion Gap 16 (10-20) 08/11/18 12:10 BUN 16 mg/dL (9-20) 08/11/18 12:10 Creatinine 1.3 mg/dL (0.8-1.5) 08/11/18 12:10 Est GFR ( Amer) > 60 08/11/18 12:10 Est GFR (Non-Af Amer) 54 08/11/18 12:10 POC Glucose (mg/dL) 182 mg/dL (65-110) H 08/13/18 16:25 Random Glucose 107 mg/dL (75-110) 08/11/18 12:10 Hemoglobin A1c 5.8 % (4.2-6.5) 08/13/18 07:17 Calcium 10.0 mg/dl (8.6-10.4) 08/11/18 12:10 Magnesium 2.0 mg/dL (1.6-2.3) 08/11/18 12:10 Total Bilirubin 0.6 mg/dL (0.2-1.3) 08/11/18 12:10 AST 60 U/L (17-59) H D 08/11/18 12:10 ALT 54 U/L (21-72) 08/11/18 12:10 Alkaline Phosphatase 94 U/L (38-126) 08/11/18 12:10 Total Creatine Kinase 1172 U/L (55-170) H 08/13/18 16:58 CK-MB (Mass) 3.37 ng/mL (0.0-3.38) 08/13/18 16:58 Troponin I 0.0800 ng/mL (0.00-0.120) 08/13/18 16:58 NT-Pro-B Natriuret Pep 1420 pg/mL (0-900) H 08/11/18 12:10 Total Protein 8.5 g/dL (6.3-8.3) H 08/11/18 12:10 Albumin 4.8 g/dL (3.5-5.0) 08/11/18 12:10 Globulin 3.7 gm/dL (2.2-3.9) 08/11/18 12:10 Albumin/Globulin Ratio 1.3 (1.0-2.1) 08/11/18 12:10 Triglycerides 118 mg/dL (0-149) D 08/13/18 07:17 Cholesterol 146 mg/dL (0-199) 08/13/18 07:17 LDL Cholesterol Direct 69 mg/dL (0-129) 08/13/18 07:17 HDL Cholesterol 61 mg/dL (30-70) 08/13/18 07:17 Homocysteine 14.7 umol/L (6.6-14.8) 08/13/18 07:17 Free T4 1.21 ng/dL (0.78-2.19) 08/13/18 07:17 TSH 3rd Generation 0.46 mIU/L (0.46-4.68) 08/13/18 07:17 Prolactin 16.5 ng/mL (3.7-17.9) 08/13/18 07:17 Blood Type O POSITIVE 08/11/18 12:16 Antibody Screen Negative 08/11/18 12:16 - Hospital Course Hospital Course: Patient re-admitted to after a syncopal episode. Patient was DC a week ago for a near syncope. Pt has Tachy-nichelle syndrome. Pt was started on Amiodarone and will be scheduled for ablation as outpatient. Pt developed rash on Amiodarone and was subsequently DC. Pt had a syncopal episode and Paroxysmal afib w/ RVR. Pt was seen by Dr Gamboa and Dr Stroud and was eventually scheduled for PPM. Pt was started on Sotalol with good response and short acting Cardizem with good response. Pt had rectal bleeding which was attributed to hemorrhoids and was put on stool softener. Pt was DC in stable condition. Discharge Exam - Head Exam Head Exam: ATRAUMATIC, NORMAL INSPECTION, NORMOCEPHALIC - Eye Exam Eye Exam: absent: Scleral icterus - ENT Exam ENT Exam: Mucous Membranes Dry - Neck Exam Neck exam: Full Rom - Respiratory Exam Respiratory Exam: Clear to PA & Lateral - Cardiovascular Exam Cardiovascular Exam: Bradycardia, Tachycardia, Irregular Rhythm - GI/Abdominal Exam GI & Abdominal Exam: Normal Bowel Sounds, Soft - Extremities Exam Extremities exam: calf tenderness, pedal edema - Neurological Exam Neurological exam: Alert, Oriented x3 - Skin Skin Exam: Dry Discharge Plan - Follow Up Plan Condition: STABLE Disposition: HOME/ ROUTINE Instructions: Heart Healthy Diet, Pacemaker Insertion (DC), Syncope (Fainting) (DC) Additional Instructions: Please follow up with Dr. Irwin office in 1 week Please follow up Dr. Stroud office on August 20 Please continue medication medications called in to your pharmacy Referrals: Nasrin Irwin MD [Staff Provider] - [place] Stroud MD [Medical Doctor] -
== END 2018-08-14 16:32 | disposition home or self-care (01) | DRG 244 ==
LOC: C.ER 11:42 → C.9E 16:07 → C.6T 17:03
PROVIDERS: ADMIT Internal Medicine; ATTEND Internal Medicine
PROC: 0JH606Z Insertion of Pacemaker, Dual Chamber into Chest Subcutaneous Tissue and Fascia, Open Approach (ICD-10-PCS; principal; 2018-08-13)
PROC: 02H63JZ Insertion of Pacemaker Lead into Right Atrium, Percutaneous Approach (ICD-10-PCS; 2018-08-13)
PROC: 02HK3JZ Insertion of Pacemaker Lead into Right Ventricle, Percutaneous Approach (ICD-10-PCS; 2018-08-13)
DX: I49.5 Sick sinus syndrome (principal); R55 Syncope and collapse; I25.10 Atherosclerotic heart disease of native coronary artery without angina pectoris; I10 Essential (primary) hypertension; Z79.01 Long term (current) use of anticoagulants; E78.00 Pure hypercholesterolemia, unspecified; F41.9 Anxiety disorder, unspecified; M19.90 Unspecified osteoarthritis, unspecified site; I48.0 Paroxysmal atrial fibrillation; M10.9 Gout, unspecified; I27.20 Pulmonary hypertension, unspecified; Z87.891 Personal history of nicotine dependence; K21.9 Gastro-esophageal reflux disease without esophagitis; S09.90XA Unspecified injury of head, initial encounter; W19.XXXA Unspecified fall, initial encounter; L27.0 Generalized skin eruption due to drugs and medicaments taken internally; T46.2X5A Adverse effect of other antidysrhythmic drugs, initial encounter; K64.9 Unspecified hemorrhoids